=== PATIENT | female | born 1945 | race African-American/Black ===

== ENCOUNTER 2016-09-04 18:07 | Emergency (ER) | payer OTHER ==
--- NOTE | 2016-09-04 18:17 | PDOC ---
Rapid Medical Evaluation Medical Evaluation: Allergies Allergy/AdvReac Type Severity Reaction Status Date / Time No Known Allergies Allergy Verified 05/09/16 06:09 09/04/16 18:13 71 yo F c/o left sided neck/left shoulder and leg pain. Pt unsure Similar symptoms x1 week ago but subsidedafter tylenol and arthiritidc rubbing cream. This morning woke up with left sided neck and shoulder pain. "not on the arm" Pt also c/o "pain to my entire leg" LEFT Took tylenol this am without relief. Ordered: EKG Facial symmetric Sensation intact to B/L facial/arms/legs Strength B/L UE/LE 5+/5
[2016-09-04 18:18] VITALS: BP 157/86; PULSE 60; TEMP 98; BMI 33.6
[2016-09-04] MEDS ORDERED: KETOROLAC TROMETHAMINE 60 MG/2 ML VIAL IM ONE (19:30)
[2016-09-04] MEDS ORDERED: KETOROLAC TROMETHAMINE 60 MG/2 ML VIAL ONE (19:48)
--- NOTE | 2016-09-04 19:50 | PDOC ---
History of Present Illness <Jonas Lewis - Last Filed: 09/05/16 01:37> - General History Source: Patient Exam Limitations: No Limitations - History of Present Illness Initial Comments: 09/04/16 19:51 The patient is a 71 year old female with significant past medical history of hypertension, hyperlipidemia, and acid reflux who presents to the ED with worsening pain to the left-sided neck radiating to the left shoulder and down the left arm with left leg pain after waking up this morning. Patient reports experiencing similar symptoms 1 week ago that resolved after taking Tylenol and applying arthritic rubbing cream. However, she developed the pain again after waking up this morning. Her pain is worsen with movement. She states taking Tylenol today with no improvement. Patient denies lightheadedness, diaphoresis, SOB, chest pain, leg swelling, or numbness/tingling. The patient denies fever, chills, and cough. The patient denies abdominal pain, nausea, vomiting, and diarrhea. Allergies: NKDA Social History: No alcohol, tobacco, or drug use reported. Past Surgical History: None reported PCP: Dr. Dk Cage <Susana Palacio - Last Filed: 09/05/16 01:45> - General Chief Complaint: Pain Stated Complaint: NECK PAIN/ARM PAIN Time Seen by Provider: 09/04/16 18:13 Past History - Past Medical History Anemia: No Asthma: No Cancer: No Cardiac Disorders: Yes CVA: No COPD: No CHF: No Dementia: No Diabetes: No GI Disorders: Yes Disorders: No HTN: Yes Hypercholesterolemia: Yes Liver Disease: No Suicide Attempt (Hx): No Seizures: Yes Thyroid Disease: Yes - Surgical History Abdominal Surgery: No Appendectomy: No Cardiac Surgery: No Cholecystectomy: No Lung Surgery: No Neurologic Surgery: No Orthopedic Surgery: No - Immunization History Immunization Up to Date: Yes - Psycho/Social/Smoking Cessation Hx Anxiety: No Suicidal Ideation: No Smoking Status: No Smoking History: Never smoked Have you smoked in the past 12 months: No Number of Cigarettes Smoked Daily: 0 Information on smoking cessation initiated: No Hx Alcohol Use: No Drug/Substance Use Hx: No Substance Use Type: None <Jonas Lewis - Last Filed: 09/05/16 01:37> <Susana Palacio - Last Filed: 09/05/16 01:45> - Past Medical History Allergies/Adverse Reactions: Allergies Allergy/AdvReac Type Severity Reaction Status Date / Time No Known Allergies Allergy Verified 09/04/16 18:13 Home Medications: Ambulatory Orders Aspirin [ASA -] 81 mg PO DAILY 02/08/12 Hydrochlorothiazide 25 mg PO DAILY 02/08/12 Multivit with Calcium,Iron,Min [One Daily Women's] 1 each PO DAILY 02/08/12 Omega3/Dha/Epa/Fish Oil/Vit D3 [Xllln-4-Pdns Oil-Vit D3 Sftgl] 1 each PO DAILY 02/08/12 Lovastatin 40 mg PO HS 06/09/13 Ibuprofen [Motrin -] 600 mg PO QID PRN #28 tablet 09/05/16 Review of Systems - Review of Systems Able to Perform ROS?: Yes Comments:: 09/04/16 19:51 CONSTITUTIONAL: Absent: fever, chills, diaphoresis, generalized weakness, malaise, loss of appetite HEENT: Absent: rhinorrhea, nasal congestion, throat pain, throat swelling, difficulty swallowing, mouth swelling, ear pain, eye pain, visual Changes CARDIOVASCULAR: Absent: chest pain, syncope, palpitations, irregular heart rate, lightheadedness , peripheral edema RESPIRATORY: Absent: cough, shortness of breath, dyspnea with exertion, orthopnea, wheezing, stridor, hemoptysis GASTROINTESTINAL: Absent: abdominal pain, abdominal distension, nausea, vomiting, diarrhea, constipation, melena, hematochezia GENITOURINARY: Absent: dysuria, frequency, urgency, hesitancy, hematuria, flank pain, genital pain MUSCULOSKELETAL: +left-sided neck pain radiating to left shoulder and down the left arm. Left leg pain Absent: joint swelling SKIN: Absent: rash, itching, pallor NEUROLOGIC: Absent: headache, focal weakness or paresthesias, dizziness, unsteady gait, seizure, mental status changes, bladder or bowel incontinence <Susana Palacio - Last Filed: 09/05/16 01:45> *Physical Exam - Vital Signs Last Vital Signs Temp Pulse Resp BP Pulse Ox 98.0 F 60 18 157/86 100 09/04/16 18:15 09/04/16 18:15 09/04/16 18:15 09/04/16 18:15 09/04/16 18:15 <Jonas Lewis - Last Filed: 09/05/16 01:37> - Vital Signs Last Vital Signs Temp Pulse Resp BP Pulse Ox 98.0 F 60 18 157/86 100 09/04/16 18:15 09/04/16 18:15 09/04/16 18:15 09/04/16 18:15 09/04/16 18:15 - Physical Exam Comments: 09/04/16 19:51 GENERAL: Well developed, well nourished. Awake and alert. No acute distress. HEENT: Normocephalic, atraumatic. PERRLA, EOMI. No conjunctival pallor. Sclera are non- icteric. Moist mucous membranes. Oropharynx is clear. NECK: Supple. Full ROM. No JVD. Carotid pulses 2+ and symmetric, without bruits. No thyromegaly. No lymphadenopathy. CARDIOVASCULAR: Regular rate and rhythm. No murmurs, rubs, or gallops. Distal pulses are 2+ and symmetric. PULMONARY: No evidence of respiratory distress. Lungs clear to auscultation bilaterally. No wheezing, rales or rhonchi. ABDOMINAL: Soft. Non-tender. Non-distended. No rebound or guarding. No organomegaly. Normoactive bowel sounds. MUSCULOSKELETAL Tenderness to the vertebral column along the cervical spine. Tenderness along the left leg, but no calf tenderness. No sign of rotator cuff injury. Good strength of the upper extremities bilaterally with good ROM. Symptoms of radiculopathy along the left upper extremity. No CVA tenderness. EXTREMITIES: No cyanosis. No clubbing. No edema. SKIN: Warm and dry. Normal capillary refill. No rashes. No jaundice. NEUROLOGICAL: Alert, awake, appropriate. Cranial nerves 2-12 intact. No deficits to light touch and temperature in face, upper extremities and lower extremities. No motor deficits in the in face, upper extremities and lower extremities. Normoreflexic in the upper and lower extremities. Normal speech. PSYCHIATRIC: Cooperative. Good eye contact. Appropriate mood and affect. <Susana Palacio - Last Filed: 09/05/16 01:45> Heart Score/ECG Review - ECG Impressions Comment:: 09/05/16 00:26 Sinus bradycardia with occasional premature ventricular complexes @55bpm Left axis deviation Nonspecific T wave abnormality Abnormal ECG <Susana Palacio - Last Filed: 09/05/16 01:45> ED Treatment Course - LABORATORY CBC & Chemistry Diagram: 09/04/16 20:00 09/04/16 21:40 - RADIOLOGY Radiology Studies Ordered: Category Date Time Status CHEST PA & LAT [RAD] Stat Radiology 09/04/16 19:30 Ordered <JoshuaJonas - Last Filed: 09/05/16 01:37> - LABORATORY CBC & Chemistry Diagram: 09/04/16 20:00 09/04/16 21:40 - RADIOLOGY Radiograph Interpretation: 09/05/16 00:23 EXAM: X-ray chest Reviewed by Imaging ux interaction designer: FINDINGS: The cardiomediastinal silhouette is normal. The lungs are clear other than minimal right midlung linear atelectasis. The bones and soft tissues are normal IMPRESSION: No evidence of acute pathology. 09/05/16 01:45 EXAM: CT angiogram chest with contrast and 3-D angiographic reconstructions Reviewed by Imaging ux interaction designer: FINDINGS: No large central pulmonary embolism. Evaluation of the distal segmental branches are limited by artifact. No aortic aneurysm or dissection. Mild calcified arteriosclerosis of the aorta and aortic branches. Calcified coronary arteriosclerosis noted. Basilar atelectasis and scarring. No pleural effusion. No pneumothorax. Small hiatal hernia with mild lower esophageal wall thickening most likely due to reflux esophagitis. Diverticulosis without diverticulitis. Common bile duct measures 1 cm. Mild degenerative disc disease. Mild thoracic kyphosis. Bridging osteophytes in the middle and lower thoracic spine. IMPRESSION No large central pulmonary embolism. Mild calcified arteriosclerosis of the aorta and aortic branches. Calcified coronary arteriosclerosis noted. Small hiatal hernia with mild lower esophageal wall thickening most likely due to reflux esophagitis. Diverticulosis without diverticulitis. Common bile duct measures 1 cm. <Susana Palacio - Last Filed: 09/05/16 01:45> *DC/Admit/Observation/Transfer - Discharge Dispostion Admit: No <Jonas Lewis - Last Filed: 09/05/16 01:37> - Attestations Scribe Attestion: 09/04/16 19:52 Documentation prepared by Susana Palacio, acting as medical economics consultant for Jonas Lewis MD, MD <Susana Palacio - Last Filed: 09/05/16 01:45> Diagnosis at time of Disposition: Cervical radiculopathy, Spinal stenosis of cervical region - Discharge Dispostion Disposition: HOME Condition at time of disposition: Guarded - Prescriptions Prescriptions: Ibuprofen [Motrin -] 600 mg PO QID PRN #28 tablet PRN Reason: Pain - Referrals Referrals: Dk Miller MD [Staff Physician] - Dk Cage MD, MD [Primary Care Provider] -
[2016-09-04 20:18] LABS: BASOPHIL 0.6 % (0-2.0); EOSINOPHIL 1.7 % (0-4.5); MCH 28.4 pg (25.7-33.7); MCHC 33.8 g/dl (32.0-36.0); MEAN PLT VOLUME 9.1 fl (7.5-11.1); NEUTROPHILS 48.2 % (42.8-82.8); PLATELET COUNT 240 K/MM3 (134-434); RDW 16.1 % (11.6-15.6); WHITE BLOOD COUNT 6.4 K/mm3 (4.0-10.0)
[2016-09-04 22:11] LABS: ALK PHOS 66 U/L (45-117); ANION GAP 7 (8-16); BILIRUBIN,TOTAL 0.4 mg/dL (0.2-1.0); CALCIUM 9.2 mg/dL (8.5-10.1); CO2 31 mmol/L (21-32); CREATININE 0.9 mg/dL (0.55-1.02); GLUCOSE,RANDOM 82 mg/dL (74-106); SGOT/AST 29 U/L (15-37); SGPT/ALT 36 U/L (12-78); TOT PROT 7.5 g/dl (6.4-8.2)
[2016-09-05 02:22] LABS: TROPONIN I < 0.02 ng/ml (0.00-0.05)
--- NOTE | 2016-09-05 14:35 | EKG ---
Test Reason : Blood Pressure : / mmHG Vent. Rate : 055 BPM Atrial Rate : 055 BPM P-R Int : 164 ms QRS Dur : 082 ms QT Int : 432 ms P-R-T Axes : 063 -32 -12 degrees QTc Int : 413 ms SINUS BRADYCARDIA WITH OCCASIONAL PREMATURE VENTRICULAR COMPLEXES LEFT AXIS DEVIATION NONSPECIFIC T WAVE ABNORMALITY ABNORMAL ECG WHEN COMPARED WITH ECG OF 09-MAY-2016 02:30, PREMATURE VENTRICULAR COMPLEXES ARE NOW PRESENT Confirmed by BROOKS FLOR, JERAMIE ([id number]) on 09/05/2016 2:34:47 PM Referred By: Confirmed By:JERAMIE GUY MD
== END 2016-09-05 01:52 | disposition home or self-care (01) ==
LOC: JER 18:07
PROC: 3E0233Z Introduction of Anti-inflammatory into Muscle, Percutaneous Approach (ICD-10-PCS; principal; 2016-09-04)
DX: M54.12 Radiculopathy, cervical region (principal); M48.02 Spinal stenosis, cervical region; I10 Essential (primary) hypertension; E78.00 Pure hypercholesterolemia, unspecified; E78.5 Hyperlipidemia, unspecified; K21.9 Gastro-esophageal reflux disease without esophagitis
CPT/HCPCS: 36415; 71020-TC; 71275-TC; 72125-TC; 80053; 82550; 82553; 84484; 85025; 85379; 93005; 93010; 96372; 99281-25

== ENCOUNTER 2016-10-05 20:54 | Emergency (ER) | payer OTHER ==
[2016-10-05 21:15] VITALS: BP 154/88; PULSE 54; TEMP 98.4; BMI 34.3
[2016-10-05] MEDS ORDERED: PANTOPRAZOLE SODIUM 40 MG in SODIUM CHLORIDE 100 ML IVPB ONE (22:36)
[2016-10-05] MEDS ORDERED: PANTOPRAZOLE 40 MG TABLET (FP) PO ONE (22:37)
--- NOTE | 2016-10-05 22:41 | PDOC ---
History of Present Illness - General History Source: Patient <GianniGregory frazier - Last Filed: 10/05/16 22:45> - General History Source: Patient Exam Limitations: No Limitations - History of Present Illness Initial Comments: 10/05/16 22:48 The patient is a 71 year old female with history of hypertension, hyperlipidemia , and pancreatic cyst, who presents to the ED complaining of constant, sharp, epigastric pain, ranked 10/10 in intensity, with associated gassiness that began this evening after eating. She states she experienced this pain once before when she was diagnosed with a pancreatic cyst. She did not take anything for her symptoms today. The patient denies fever or chills. She denies chest pain or shortness of breath. She denies vomiting or diarrhea. <Yissel Stewart - Last Filed: 10/05/16 22:54> - General Chief Complaint: Pain, Acute Stated Complaint: STOMACH PAIN Time Seen by Provider: 10/05/16 22:14 Past History - Past Medical History Anemia: No Asthma: No Cancer: No Cardiac Disorders: Yes CVA: No COPD: No CHF: No Dementia: No Diabetes: No GI Disorders: Yes Disorders: No HTN: Yes Hypercholesterolemia: Yes Liver Disease: No Suicide Attempt (Hx): No Seizures: Yes Thyroid Disease: Yes - Surgical History Abdominal Surgery: No Appendectomy: No Cardiac Surgery: No Cholecystectomy: No Lung Surgery: No Neurologic Surgery: No Orthopedic Surgery: No - Immunization History Immunization Up to Date: Yes - Psycho/Social/Smoking Cessation Hx Anxiety: No Suicidal Ideation: No Smoking Status: No Smoking History: Never smoked Have you smoked in the past 12 months: No Number of Cigarettes Smoked Daily: 0 Information on smoking cessation initiated: No Hx Alcohol Use: No Drug/Substance Use Hx: No Substance Use Type: None <Gregory Mendez - Last Filed: 10/05/16 22:45> <Yissel Stewart - Last Filed: 10/05/16 22:54> - Past Medical History Allergies/Adverse Reactions: Allergies Allergy/AdvReac Type Severity Reaction Status Date / Time No Known Allergies Allergy Verified 10/05/16 21:13 Home Medications: Ambulatory Orders Aspirin [ASA -] 81 mg PO DAILY 02/08/12 Hydrochlorothiazide 25 mg PO DAILY 02/08/12 Multivit with Calcium,Iron,Min [One Daily Women's] 1 each PO DAILY 02/08/12 Omega3/Dha/Epa/Fish Oil/Vit D3 [Umoft-7-Gncj Oil-Vit D3 Sftgl] 1 each PO DAILY 02/08/12 Lovastatin 40 mg PO HS 06/09/13 Oxycodone HCl/Acetaminophen [Percocet 5-325 mg Tablet] 1 - 2 tab PO Q6H #20 tablet MDD 4 10/05/16 Pantoprazole Sodium [Protonix] 40 mg PO DAILY #30 tablet. 10/05/16 Review of Systems - Review of Systems Able to Perform ROS?: Yes Comments:: 10/05/16 22:52 GENERAL/CONSTITUTIONAL: No fever or chills. No weakness. HEAD, EYES, EARS, NOSE AND THROAT: No change in vision. No ear pain or discharge. No sore throat CARDIOVASCULAR: No chest pain or shortness of breath. RESPIRATORY: No cough, wheezing, or hemoptysis. GASTROINTESTINAL: Epigastric pain. No nausea, vomiting, diarrhea or constipation. GENITOURINARY: No dysuria, frequency, or change in urination. MUSCULOSKELETAL: No joint or muscle swelling or pain. No neck or back pain. SKIN: No rash NEUROLOGIC: No headache, vertigo, loss of consciousness, or change in strength/ sensation. ENDOCRINE: No increased thirst. No abnormal weight change. HEMATOLOGIC/LYMPHATIC: No anemia, easy bleeding, or history of blood clots. ALLERGIC/IMMUNOLOGIC: No hives or skin allergy. <Yissel Stewart - Last Filed: 10/05/16 22:54> *Physical Exam - Vital Signs Last Vital Signs Temp Pulse Resp BP Pulse Ox 98.4 F 54 L 18 154/88 98 10/05/16 21:13 10/05/16 21:13 10/05/16 21:13 10/05/16 21:13 10/05/16 21:13 <Gregory Mendez - Last Filed: 10/05/16 22:45> - Vital Signs Last Vital Signs Temp Pulse Resp BP Pulse Ox 98.4 F 54 L 18 154/88 98 10/05/16 21:13 10/05/16 21:13 10/05/16 21:13 10/05/16 21:13 10/05/16 21:13 - Physical Exam Comments: 10/05/16 22:53 GENERAL: Awake, alert, and fully oriented, in no acute distress HEAD: No signs of trauma EYES: PERRLA, EOMI, sclera anicteric, conjunctiva clear ENT: Auricles normal inspection, hearing grossly normal, nares patent, oropharynx clear without exudates. Moist mucosa NECK: Normal ROM, supple, no lymphadenopathy, JVD, or masses LUNGS: Breath sounds equal, clear to auscultation bilaterally. No wheezes, and no crackles HEART: Regular rate and rhythm, normal S1 and S2, no murmurs, rubs or gallops ABDOMEN: +Mild epigastric tenderness to palpitations. Soft, normoactive bowel sounds. No guarding, no rebound. No masses EXTREMITIES: Normal range of motion, no edema. No clubbing or cyanosis. No cords, erythema, or tenderness NEUROLOGICAL: Cranial nerves II through XII grossly intact. Normal speech, normal gait SKIN: Warm, Dry, normal turgor, no rashes or lesions noted. <Yissel Stewart - Last Filed: 10/05/16 22:54> Medical Decision Making - Medical Decision Making 10/05/16 22:45 Dr. Mendez: The scribe's documentation has been prepared under my direction and personally reviewed by me in its entirery. I confirm that the note above accurately reflects all work, treatment, procedures, and medical decision making performed by me. <Gregory Mendez - Last Filed: 10/05/16 22:45> *DC/Admit/Observation/Transfer - Discharge Dispostion Admit: No <Gregory Mendez - Last Filed: 10/05/16 22:45> - Attestations Scribe Attestion: 10/05/16 22:53 Documentation prepared by Yissel Stewart, acting as medical coding auditor for Gregory Mendez DO. <iYssel Stewart - Last Filed: 10/05/16 22:54> Diagnosis at time of Disposition: Abdominal pain Qualifiers: Abdominal location: epigastric Qualified Code(s): R10.13 - Epigastric pain - Discharge Dispostion Disposition: HOME Condition at time of disposition: Stable - Prescriptions Prescriptions: Oxycodone HCl/Acetaminophen [Percocet 5-325 mg Tablet] 1 - 2 tab PO Q6H #20 tablet MDD 4 Pantoprazole Sodium [Protonix] 40 mg PO DAILY #30 tablet.dr - Referrals Referrals: Dk Cage MD, MD [Primary Care Provider] - Eriberto Cervantes MD [Staff Physician] - - Patient Instructions Printed Discharge Instructions: DI for Abdominal Pain-Adult Additional Instructions: Please follow up with your GI specialist as soon as possible. Take medication as directed
[2016-10-05] MEDS ORDERED: PANTOPRAZOLE 40 MG TABLET (FP) ONE (22:43)
[2016-10-05] MEDS ORDERED: OXYCODONE/APAP 5/325MG COMBO TABLET PO ONE (22:44)
[2016-10-05] MEDS ORDERED: OXYCODONE/APAP 5/325MG COMBO TABLET ONE (22:46)
== END 2016-10-05 22:56 | disposition home or self-care (01) ==
LOC: JER 20:54
DX: R10.13 Epigastric pain (principal); I51.9 Heart disease, unspecified; I10 Essential (primary) hypertension; E07.9 Disorder of thyroid, unspecified; Z79.82 Long term (current) use of aspirin
CPT/HCPCS: 99282-25

== ENCOUNTER 2016-12-11 23:10 | Observation (INO) | payer OTHER ==
[2016-12-11 23:15] VITALS: BMI 34.3
[2016-12-11] MEDS ORDERED: ASPIRIN 81 MG CHEWABLE TABLETS PO ONE (23:45)
--- NOTE | 2016-12-11 23:45 | PDOC ---
History of Present Illness <Antonia Marc - Last Filed: 12/12/16 01:26> <DkClaudine Lagos - Last Filed: 12/13/16 01:48> - General Chief Complaint: Lightheaded Stated Complaint: ALLERGIC REACTION Time Seen by Provider: 12/11/16 23:29 - History of Present Illness Initial Comments: 12/12/16 01:26 Patient is a 71 year old female with significant medical hx of HTN, HLD, acid reflux, and pancreatic cyst who is presenting to the ED with several complaints including chest pain, vertigo, and lip tingling. Yesterday the patient had some faint tingling of her mandibular lip which usually occurs after eating peanuts, which she had in a brownie yesterday. Denies any dyspnea, angioedema, or rash. The patient also complains of substernal chest discomfort that began this afternoon after eating lunch. Her pain is constant, non-radiating, and not affiliated with any shortness of breath. The patient has a tertiary complaint of vertigo that began this evening, which she states shes had in the past. She describes her dizziness as if the room is spinning but denies any headache, photophobia, weakness, or syncope. Denies any fever, chills, nausea, vomiting, or diarrhea. Allergies: Peanuts. NKDA Social History: No alcohol, tobacco, or drug use reported. Past Surgical History: None reported PCP: Dk Cage MD (Antonia Marc) Past History <Antonia Marc - Last Filed: 12/12/16 01:26> - Past Medical History Anemia: No Asthma: No Cancer: No Cardiac Disorders: Yes CVA: No COPD: No CHF: No Dementia: No Diabetes: No GI Disorders: Yes Disorders: No HTN: Yes Hypercholesterolemia: Yes Liver Disease: No Suicide Attempt (Hx): No Seizures: Yes Thyroid Disease: Yes - Surgical History Abdominal Surgery: No Appendectomy: No Cardiac Surgery: No Cholecystectomy: No Lung Surgery: No Neurologic Surgery: No Orthopedic Surgery: No - Immunization History Immunization Up to Date: Yes - Psycho/Social/Smoking Cessation Hx Anxiety: No Suicidal Ideation: No Smoking Status: No Smoking History: Never smoked Have you smoked in the past 12 months: No Number of Cigarettes Smoked Daily: 0 Hx Alcohol Use: No Drug/Substance Use Hx: No Substance Use Type: None <Claudine Root - Last Filed: 12/13/16 01:48> - Past Medical History Allergies/Adverse Reactions: Allergies Allergy/AdvReac Type Severity Reaction Status Date / Time peanut Allergy Verified 12/11/16 23:13 Home Medications: Ambulatory Orders Aspirin [ASA -] 81 mg PO DAILY 02/08/12 Hydrochlorothiazide 25 mg PO DAILY 02/08/12 Multivit with Calcium,Iron,Min [One Daily Women's] 1 each PO DAILY 02/08/12 Omega3/Dha/Epa/Fish Oil/Vit D3 [Dmemw-9-Ohom Oil-Vit D3 Sftgl] 1 each PO DAILY 02/08/12 Lovastatin 40 mg PO HS 06/09/13 Cardiac Specific PMH - Complaint Specific PMHX Pacemaker: No <Jesús Rootmarissa Lagos - Last Filed: 12/13/16 01:48> Review of Systems <Antonia Marc - Last Filed: 12/12/16 01:26> <DkClaudine Yolis - Last Filed: 12/13/16 01:48> - Review of Systems Comments:: 12/12/16 01:26 CONSTITUTIONAL: Absent: fever, chills, diaphoresis, generalized weakness, malaise, loss of appetite HEENT: Absent: rhinorrhea, nasal congestion, throat pain, throat swelling, difficulty swallowing, mouth swelling, ear pain, eye pain, visual changes CARDIOVASCULAR: Present: chest pain Absent: syncope, palpitations, irregular heart rate, lightheadedness, peripheral edema RESPIRATORY: Absent: cough, shortness of breath, dyspnea with exertion, orthopnea, wheezing, stridor, hemoptysis GASTROINTESTINAL: Absent: abdominal pain, abdominal distension, nausea, vomiting, diarrhea, constipation, melena, hematochezia GENITOURINARY: Absent: dysuria, frequency, urgency, hesitancy, hematuria, flank pain, genital pain MUSCULOSKELETAL: Absent: myalgia, arthralgia, joint swelling SKIN: Absent: rash, itching, pallor HEMATOLOGIC/IMMUNOLOGIC: Absent: easy bleeding, easy bruising, lymphadenopathy, frequent infections ENDOCRINE: Absent: unexplained weight gain, unexplained weight loss, heat intolerance, cold intolerance NEUROLOGIC: Present: dizziness, lip tingling Absent: headache, focal weakness, unsteady gait, seizure, mental status changes , bladder or bowel incontinence. PSYCHIATRIC: Absent: anxiety, depression, suicidal or homicidal ideation, hallucinations (Antonia Marc) *Physical Exam <Antonia Marc - Last Filed: 12/12/16 01:26> <DkClaudine Yolis - Last Filed: 12/13/16 01:48> - Vital Signs Last Vital Signs Temp Pulse Resp BP Pulse Ox 98.0 F 57 L 18 121/66 98 12/12/16 22:00 12/12/16 22:00 12/12/16 22:00 12/12/16 22:00 12/12/16 21:00 - Physical Exam Comments: 12/12/16 01:27 GENERAL: Well developed, well nourished. Awake and alert. No acute distress. HEENT: Normocephalic, atraumatic. PERRLA, EOMI. No conjunctival pallor. Sclera are non- icteric. Moist mucous membranes. Oropharynx is clear. NECK: Supple. Full ROM. No JVD. Carotid pulses 2+ and symmetric, without bruits. No thyromegaly. No lymphadenopathy. CARDIOVASCULAR: Regular rate and rhythm. No murmurs, rubs, or gallops. Distal pulses are 2+ and symmetric. PULMONARY: No evidence of respiratory distress. Lungs clear to auscultation bilaterally. No wheezing, rales or rhonchi. ABDOMINAL: Soft. Non-tender. Non-distended. No rebound or guarding. No organomegaly. Normoactive bowel sounds. MUSCULOSKELETAL: Normal range of motion at all joints. No bony deformities or tenderness. No CVA tenderness. EXTREMITIES: No cyanosis. No clubbing. No edema. No calf tenderness. SKIN: Warm and dry. Normal capillary refill. No rashes. No jaundice. NEUROLOGICAL: Alert, awake, appropriate. Cranial nerves 2-12 intact. Normal speech. PSYCHIATRIC: Cooperative. Good eye contact. Appropriate mood and affect. (Antonia Marc) Heart Score/ECG Review <Antonia Marc - Last Filed: 12/12/16 01:26> - History History: Slightly suspicious - Electrocardiogram EKG: Non specific repolarization disturbance - Age Age: >/= 65 - Risk Factors Risk Factors Heart Score: Yes Hx Hypertension Based on the list above the patient has:: 1-2 risk factors - Troponin Troponin: </= normal limit - Score Heart Score - Total: 4 <Claudine Root - Last Filed: 12/13/16 01:48> #1 12/12/16 01:28 Sinus bradycardia at 53 bpm Left axis deviation Nonspecific T wave abnormality Abnormal ECG (MonicoAntonia) ED Treatment Course - LABORATORY CBC & Chemistry Diagram: 12/12/16 00:20 12/12/16 00:20 <MonicoAlbertAntonia - Last Filed: 12/12/16 01:26> - LABORATORY CBC & Chemistry Diagram: 12/12/16 06:20 12/12/16 06:20 <Claudine Root - Last Filed: 12/13/16 01:48> - ADDITIONAL ORDERS Additional order review: Laboratory Results 12/11/16 09:50 Ur Specific [facility] <= 1.005 12/12/16 00:20 RBC 4.63 MCV 84.2 MCHC 32.9 RDW 15.6 MPV 9.3 Neutrophils % 57.2 Lymphocytes % 30.9 D Monocytes % 10.1 Eosinophils % 1.2 Basophils % 0.6 - RADIOLOGY Radiology Studies Ordered: Category Date Time Status HEAD CT WITHOUT CONTRAST [CT] Stat CT Scan 12/12/16 00:04 Completed CHEST X-RAY PORTABLE* [RAD] Stat Radiology 12/11/16 23:45 Completed Radiograph Interpretation: 12/12/16 01:29 [place]: ([email or web address]) Report Date: 12/12/2016 00:34:00 Report Status: Preliminary Begin of Report Content Referring Physician: Claudine Root Patient Name: Bess Shah THIS IS A PRELIMINARY REPORT FROM IMAGING DIRECTOR BUSINESS DEVELOPMENT DATE OF SERVICE: 2016-12-12 00:34:24.0 IMAGES: 401 EXAM: HEAD CT WITHOUT CONTRAST HISTORY:Altered mental status, headache COMPARISON: 01/21/15 FINDINGS: No evidence of hemorrhage, acute territorial infarction, mass effect , midline shift, hydrocephalus, or extra-axial collections No hyperdense arterial sign Clear paranasal sinuses, mastoid air cells, and middle ear cavities The calvarium and overlying soft tissues are unremarkable In comparison to the prior study, there has been no significant change IMPRESSION: 1. Stable examination. No acute intracranial pathology THIS DOCUMENT HAS BEEN ELECTRONICALLY SIGNED Gregorio Dominguez MD 12/12/2016 01:09 RICHARD Roe Please call Imaging Candy Attendant [phone]) with questions. End of Report Content (Antonia Marc) - Medications Given in the ED: ED Medications Discontinued Medications Generic Name Dose Route Start Last Admin Trade Name Freq PRN Reason Stop Dose Admin Al Hydroxide/Mg Hydroxide 30 ml 12/12/16 12:00 12/12/16 12:23 Mylanta Suspension - PO 30 ml Q6HPO ASH Administration Aspirin 162 mg 12/11/16 23:45 12/12/16 01:19 Asa - PO 12/11/16 23:46 Not Given ONCE ONE Aspirin 81 mg 12/12/16 00:37 12/12/16 00:38 Asa - PO 12/12/16 00:38 81 mg ONCE ONE Administration Hydrochlorothiazide 25 mg 12/12/16 10:00 12/12/16 10:49 Hctz - PO Not Given DAILY ASH Pantoprazole Sodium 100 mls @ 200 mls/hr 12/12/16 10:00 12/12/16 10:47 Protonix 40mg Ivpb (Pre-Docked) IVPB Not Given DAILY ASH Sodium Chloride 1,000 mls @ 75 mls/hr 12/12/16 11:00 12/12/16 12:23 Normal Saline - IV 12/13/16 00:19 75 mls/hr ASDIR ASH Administration Meclizine HCl 50 mg 12/12/16 00:36 12/12/16 01:19 Antivert - PO 12/12/16 00:37 50 mg ONCE ONE Administration Ondansetron HCl 4 mg 12/12/16 03:04 12/12/16 03:18 Zofran Injection IVPUSH 12/12/16 03:05 4 mg ONCE ONE Administration Medical Decision Making <Antonia Marc - Last Filed: 12/12/16 01:26> <Claudine Root - Last Filed: 12/13/16 01:48> - Medical Decision Making 12/12/16 00:33 71-year-old female has complaint of vertigo. She has had in the past. She has no meclizine at home. She also noted that she had some elevated chicken and 3 PM and a brownie. Bottom lip started to feel tingly and numb and she felt that she had been exposed to peanuts She does not have any shortness of breath, no wheezing, no uvular swelling, and no hives, no angioedema Her dizziness is very positional and worsens with if she tries to lay supine. No nausea, vomiting. She does complain of some nonradiating substernal chest pain, has complaint: " Of indigestion that started this evening. Past medical history of hypertension, lipidemia and hypertension Plan patient to receive vertigo, cardiac enzymes, head CT -pt's head CT negative for any acute intracranial pathology/first cardiac enzyme is negative. Will admit for r/o to tele obs 12/13/16 01:46 (Claudine Root) *DC/Admit/Observation/Transfer <Antonia Marc - Last Filed: 12/12/16 01:26> - Discharge Dispostion Admit: Yes <Claudine Root - Last Filed: 12/13/16 01:48> Diagnosis at time of Disposition: Chest pain Qualifiers: Chest pain type: precordial pain Qualified Code(s): R07.2 - Precordial pain - Referrals - Attestations Scribe Attestion: 12/12/16 01:28 Documentation prepared by Antonia Marc, acting as medical chemist for Claudine Root MD. (Antonia Marc)
[2016-12-12] MEDS ORDERED: ASPIRIN 81 MG CHEWABLE TABLETS ONE (00:23)
[2016-12-12 00:28] LABS: BASOPHIL 0.6 % (0-2.0); EOSINOPHIL 1.2 % (0-4.5); MCH 27.7 pg (25.7-33.7); MCHC 32.9 g/dl (32.0-36.0); MEAN CELL VOLUME 84.2 fl (80-96); MEAN PLT VOLUME 9.3 fl (7.5-11.1); NEUTROPHILS 57.2 % (42.8-82.8); PLATELET COUNT 227 K/MM3 (134-434); RDW 15.6 % (11.6-15.6); WHITE BLOOD COUNT 6.8 K/mm3 (4.0-10.0)
[2016-12-12] MEDS ORDERED: MECLIZINE HCL 25 MG TABLET (FP) PO ONE (00:36)
[2016-12-12] MEDS ORDERED: ASPIRIN 81 MG CHEWABLE TABLETS PO ONE (00:37)
[2016-12-12 00:52] LABS: ALBUMIN 3.8 g/dl (3.4-5.0); ANION GAP 9 (8-16); CALCIUM 9.5 mg/dL (8.5-10.1); CO2 31 mmol/L (21-32); COCKROFT - GAULT 74.9615; GLUCOSE,RANDOM 112 mg/dL (74-106); SGPT/ALT 35 U/L (12-78)
[2016-12-12 00:55] LABS: ALK PHOS 62 U/L (45-117); BILIRUBIN,TOTAL 0.5 mg/dL (0.2-1.0); TOT PROT 7.4 g/dl (6.4-8.2); TROPONIN I < 0.02 ng/ml (0.00-0.05)
[2016-12-12 01:01] LABS: SGOT/AST 37 U/L (15-37)
[2016-12-12 01:10] LABS: INR 1.16 (0.82-1.09); PROTHROMBIN TIME (PATIENT) 12.8 SEC (9.98-11.88)
[2016-12-12] MEDS ORDERED: MECLIZINE HCL 25 MG TABLET (FP) ONE (01:10)
--- NOTE | 2016-12-12 02:00 | PN ---
<Orlando Benjaminbeulah - Last Filed: 12/12/16 02:00> Teaching Attending Note Name of Resident: Javy Saavedra ATTENDING PHYSICIAN STATEMENT I saw and evaluated the patient. I reviewed the resident's note and discussed the case with the resident. I agree with the resident's findings and plan as documented. SUBJECTIVE: OBJECTIVE: ASSESSMENT AND PLAN: <Kirk Bronson - Last Filed: 12/12/16 03:07> Teaching Attending Note ATTENDING PHYSICIAN STATEMENT I saw and evaluated the patient. I reviewed the resident's note and discussed the case with the resident. I agree with the resident's findings and plan as documented. SUBJECTIVE: Patient is a 71 year old female with significant medical hx of HTN, HLD, acid reflux, and pancreatic cyst who is presenting to the ED with several complaints including chest pain, vertigo, and lip tingling. Notes she had slight tingling of her lips after having a brownie yesterday in which she suspects contained peanuts dyspnea, angioedema, or rash. Patient also reported chest pain that started this afternoon pain and is constant, nonradiating, and associated with room spinning dizziness OBJECTIVE: Last Vital Signs 3 Temp Pulse Resp BP Pulse Ox 97.7 F 56 L 20 165/81 98 12/11/16 23:13 12/11/16 23:13 12/11/16 23:13 12/11/16 23:13 12/11/16 23:13 Physical Exam: GEN: NAD AOx3 HEENT: NCAT, PERRL CARD: RRR, S1 S2 RESP: CTAB. Able to speak in full sentences ABD: NT, BWS x4 EXT: - CCE Labs: CBCD 3 WBC 6.8 K/mm3 (4.0-10.0) 12/12/16 00:20 RBC 4.63 M/mm3 (3.60-5.2) 12/12/16 00:20 Hgb 12.9 GM/dL (10.7-15.3) 12/12/16 00:20 Hct 39.0 % (32.4-45.2) 12/12/16 00:20 MCV 84.2 fl (80-96) 12/12/16 00:20 MCHC 32.9 g/dl (32.0-36.0) 12/12/16 00:20 RDW 15.6 % (11.6-15.6) 12/12/16 00:20 Plt Count 227 K/MM3 (134-434) 12/12/16 00:20 MPV 9.3 fl (7.5-11.1) 12/12/16 00:20 CMP 3 Sodium 139 mmol/L (136-145) 12/12/16 00:20 Potassium 4.6 mmol/L (3.5-5.1) D 12/12/16 00:20 Chloride 99 mmol/L (98-107) 12/12/16 00:20 Carbon Dioxide 31 mmol/L (21-32) 12/12/16 00:20 Anion Gap 9 (8-16) 12/12/16 00:20 BUN 19 mg/dL (7-18) H D 12/12/16 00:20 Creatinine 1.0 mg/dL (0.55-1.02) 12/12/16 00:20 Creat Clearance w eGFR 54.81 (>60) 12/12/16 00:20 Calcium 9.5 mg/dL (8.5-10.1) 12/12/16 00:20 Total Bilirubin 0.5 mg/dL (0.2-1.0) D 12/12/16 00:20 AST 37 U/L (15-37) D 12/12/16 00:20 ALT 35 U/L (12-78) 12/12/16 00:20 Alkaline Phosphatase 62 U/L (45-117) 12/12/16 00:20 Total Protein 7.4 g/dl (6.4-8.2) 12/12/16 00:20 Albumin 3.8 g/dl (3.4-5.0) 12/12/16 00:20 Imaging: EXAM: CT brain without contrast IMAGES: 55 EXAM DATE AND TIME: 2015-01-21 01: 46:32.0 REASON FOR EXAM: Dizziness rule out bleed COMPARISON: No FINDINGS: Normal brain. No acute intracranial abnormality. No bleed. No acute infarct or mass. THIS DOCUMENT HAS BEEN ELECTRONICALLY SIGNED Kevin Zaldivar MD 01/21/2015 02:02 EST EXAM: ECG Impression: Sinus bradycardia at 53 bpm. Left axis deviation. Nonspecific T wave abnormality. Abnormal ECG. ASSESSMENT AND PLAN: Patient is a 71 year old female with significant medical history of HTN, HLD, acid reflux, and pancreatic cyst who is presenting to the ED with several complaints including chest pain, vertigo, and lip tingling. 1. CP- heart score 4. Post aspirin in ED - Trend trop/ecg - O2 2L NC - Continue with statin - Avoid beta block as patient is bradycardic 2. BPPV - Continue with Methylzine 3. Allergic rxn? - With lip tingling since resolved no angioedema - Benadryl 4. HTN - Continue home medications 5. HLD - Continue with statin - Check lipid panel 6. DVT - low risk - Ambulate Place in observation telemetry Documentation prepared by Kirk Bronson, acting as director of medical review for Dr. Yair Benjamin MD.
[2016-12-12] MEDS ORDERED: ONDANSETRON 4 MG/2 ML VIAL IVPUSH ONE (03:04)
[2016-12-12] MEDS ORDERED: MECLIZINE HCL 25 MG TABLET (FP) PO PRN (03:04)
--- NOTE | 2016-12-12 03:09 | HP ---
CHIEF COMPLAINT: chest pain, lip tingling, dizziness/room spinning PCP: Dr. Dk Cage; GI - Dr. Cervantes HISTORY OF PRESENT ILLNESS: 71 y/o F w/sig PMH of HTN, HLD, TIA x2, borderline DM, gastric ulcer, vertigo, GERD presents to ER with c/o mandibular lip tingling, dizziness/room spinning, and chest pain. Pt states she has a peanut allergy and had a brownie with nuts in it and began feeling her lip tingling last night. This morning she woke up with feeling of room spinning, some throat swelling, and chest pain located under the sternum/LUQ. Chest pain is constant, 10/10 initially (now at 7/10), with no radiation. She took tylenol with no relief of chest pain. The feeling of throat swelling gradually resolved through the day today. She has also been feeling nauseous since last night but has not vomited. She has had symptoms of vertigo in the past, last time being many months ago. She had EGD approximately 1 year ago and was found to have an ulcer and treated for it. She has had regular BMs with no blood in stool, no dysuria, denies LOC, SOB, sick contacts, recent travel, fevers, chills, peripheral swelling. ER course was notable for: (1) Meclizine, ASA (2) Head CT w/o contrast (3) Recent Travel: denies PAST MEDICAL HISTORY: HTN, HLD, TIA x2, borderline DM, gastric ulcer, vertigo, GERD, pancreatic cyst PAST SURGICAL HISTORY: no surgeries in past Social History: Smoking: denies Alcohol: rare Drugs: denies Allergies peanut Allergy (Verified 12/11/16 23:13) -cough, throat swelling HOME MEDICATIONS: Home Medications Medication Instructions Recorded Aspirin [ASA -] 81 mg PO DAILY 02/08/12 Hydrochlorothiazide 25 mg PO DAILY 02/08/12 Multivit with Calcium,Iron,Min 1 each PO DAILY 02/08/12 [One Daily Women's] Omega3/Dha/Epa/Fish Oil/Vit D3 1 each PO DAILY 02/08/12 [Ubpjr-2-Zpil Oil-Vit D3 Sftgl] Lovastatin 40 mg PO HS 06/09/13 Oxycodone HCl/Acetaminophen 1 - 2 tab PO Q6H #20 tablet MDD 4 10/05/16 [Percocet 5-325 mg Tablet] Pantoprazole Sodium [Protonix] 40 mg PO DAILY #30 tablet. 10/05/16 REVIEW OF SYSTEMS CONSTITUTIONAL: Absent: fever, chills, diaphoresis HEENT: +blurry vision from spinning, +throat swelling Absent: difficulty swallowing, mouth swelling, ringing in ears, eye pain CARDIOVASCULAR: +chest pain Absent: syncope, lightheadedness, peripheral edema RESPIRATORY: Absent: cough, shortness of breath GASTROINTESTINAL: +nausea Absent: abdominal pain, abdominal distension, vomiting, diarrhea, constipation, hematochezia GENITOURINARY: Absent: dysuria, hematuria NEUROLOGIC: +dizziness/room spinning, +mandibular lip parasthesia Absent: headache, focal weakness, unsteady gait PSYCHIATRIC: Absent: anxiety, depression, hallucinations. PHYSICAL EXAMINATION Vital Signs - 24 hr 12/11/16 23:13 Temperature 97.7 F Pulse Rate 56 L Respiratory 20 Rate Blood Pressure 165/81 O2 Sat by Pulse 98 Oximetry (%) GENERAL: Awake, alert, and fully oriented, in no acute distress. HEAD: Normal with no signs of trauma. EYES: extraocular movements intact, sclera anicteric, conjunctiva clear. No lid lag. EARS, NOSE, THROAT: Ears normal, nares patent, oropharynx clear without exudates. Moist mucous membranes. No laryngeal swelling. NECK: Normal range of motion, supple LUNGS: Breath sounds equal, clear to auscultation bilaterally. No wheezes, and no crackles. No accessory muscle use. HEART: Bradycardic, normal S1 and S2 without murmur, rub or gallop. ABDOMEN: +mild LUQ tenderness, Soft, not distended, normoactive bowel sounds, no guarding, no rebound, no masses. No hepatomegaly or splenomegaly. MUSCULOSKELETAL: Normal range of motion at all joints. No bony deformities or tenderness. No CVA tenderness. LOWER EXTREMITIES: warm, well-perfused. No calf tenderness. No peripheral edema. NEUROLOGICAL:Normal speech. gait not observed. No focal neurological deficits. Roman-Hallpike unable to be done as pt became extremely nauseous during maneuver. PSYCHIATRIC: Cooperative. Good eye contact. Appropriate mood and affect. SKIN: Warm, dry Laboratory Results - last 24 hr 12/12/16 12/12/16 12/12/16 00:01 00:20 00:20 WBC 6.8 RBC 4.63 Hgb 12.9 Hct 39.0 MCV 84.2 MCHC 32.9 RDW 15.6 Plt Count 227 MPV 9.3 Neutrophils % 57.2 Lymphocytes % 30.9 D Monocytes % 10.1 Eosinophils % 1.2 Basophils % 0.6 INR 1.16 H Sodium Potassium Chloride Carbon Dioxide Anion Gap BUN Creatinine Creat Clearance w eGFR Random Glucose Calcium Total Bilirubin AST ALT Alkaline Phosphatase Creatine Kinase CK-MB (CK-2) Troponin I Total Protein Albumin Blood Type A POSITIVE Antibody Screen 12/12/16 12/12/16 00:20 00:20 WBC RBC Hgb Hct MCV MCHC RDW Plt Count MPV Neutrophils % Lymphocytes % Monocytes % Eosinophils % Basophils % INR Sodium 139 Potassium 4.6 D Chloride 99 Carbon Dioxide 31 Anion Gap 9 BUN 19 H D Creatinine 1.0 Creat Clearance w eGFR 54.81 Random Glucose 112 H D Calcium 9.5 Total Bilirubin 0.5 D AST 37 D ALT 35 Alkaline Phosphatase 62 Creatine Kinase 298 H D CK-MB (CK-2) 1.154 Troponin I < 0.02 Total Protein 7.4 Albumin 3.8 Blood Type A POSITIVE Antibody Screen Negative EK12/12/16 01:28 Sinus bradycardia at 53 bpm Left axis deviation Nonspecific T wave abnormality Abnormal ECG Imaging: Patient Name: Bess Shah THIS IS A PRELIMINARY REPORT FROM IMAGING UNDERCOVER AGENT DATE OF SERVICE: 2016-12-12 00:34:24.0 IMAGES: 401 EXAM: HEAD CT WITHOUT CONTRAST HISTORY:Altered mental status, headache COMPARISON: 01/21/15 FINDINGS: No evidence of hemorrhage, acute territorial infarction, mass effect , midline shift, hydrocephalus, or extra-axial collections No hyperdense arterial sign Clear paranasal sinuses, mastoid air cells, and middle ear cavities The calvarium and overlying soft tissues are unremarkable In comparison to the prior study, there has been no significant change IMPRESSION: 1. Stable examination. No acute intracranial pathology THIS DOCUMENT HAS BEEN ELECTRONICALLY SIGNED Gregorio Dominguez MD 12/12/2016 01:09 EST Active Medications Aspirin (Asa -) 81 mg PO DAILY ASH Atorvastatin Calcium (Lipitor -) 10 mg PO HS ASH Hydrochlorothiazide (Hctz -) 25 mg PO DAILY ASH Pantoprazole Sodium (Protonix 40mg Ivpb (Pre-Docked)) 100 mls @ 200 mls/hr IVPB DAILY ASH Meclizine HCl (Antivert -) 25 mg PO TID PRN PRN Reason: VERTIGO ASSESSMENT/PLAN: 71 y/o F w/sig PMH of HTN, HLD, TIA x2, borderline DM, gastric ulcer, vertigo, GERD presents to ER with c/o mandibular lip tingling, dizziness/room spinning, and chest pain. Admitted under observation for atypical chest pain. -Atypical Chest Pain -EKG shows no ST segment changes -Initial trop negative, trend trops -f/u lipid profile -c/w ASA 81 mg, lovastatin 40 mg qhs -likely GI etiology as pt has had ulcer in the past -HEART score 4 -Vertigo / BPPV -Meclizine 25 mg po TID PRN -Zofran given for nausea -Head CT w/o contrast: No acute intracranial pathology -Mandibular Lip parasthesias -Likely secondary to peanut allergy -Benadryl if necessary / no improvement -Hx of GERD and Peptic Ulcer disease -may be cause of substernal/LUQ pain -protonix 40 mg IV qd -HTN -home meds: HCTZ 25 mg po qd -CAD, hx of TIA -c/w lovastatin 40 mg qhs -Head CT w/o contrast: No acute intracranial pathology -DVT ppx -SCDs -FEN -No fluids -Electrolytes wnl, monitor -Cardiac/Diabetic diet -Dispo -Monitor in obs on tele Visit type - Emergency Visit Emergency Visit: Yes ED Registration Date: 12/12/16 Care time: The patient presented to the Emergency Department on the above date and was hospitalized for further evaluation of their emergent condition. - New Patient This patient is new to me today: Yes Date on this admission: 12/12/16 - Critical Care Critical Care patient: No
[2016-12-12] MEDS ORDERED: ONDANSETRON 4 MG/2 ML VIAL ONE (03:13)
[2016-12-12 06:35] LABS: BASOPHIL 0.5 % (0-2.0); EOSINOPHIL 0.9 % (0-4.5); MCH 27.6 pg (25.7-33.7); MCHC 32.7 g/dl (32.0-36.0); MEAN CELL VOLUME 84.5 fl (80-96); MEAN PLT VOLUME 8.4 fl (7.5-11.1); PLATELET COUNT 210 K/MM3 (134-434); RDW 15.5 % (11.6-15.6); WHITE BLOOD COUNT 6.7 K/mm3 (4.0-10.0)
[2016-12-12 07:05] LABS: ALBUMIN 3.7 g/dl (3.4-5.0); ANION GAP 7 (8-16); BILIRUBIN,TOTAL 0.5 mg/dL (0.2-1.0); CALCIUM 9.5 mg/dL (8.5-10.1); CHOLESTEROL 195 mg/dL (50-200); CO2 31 mmol/L (21-32); COCKROFT - GAULT 83.2915; CREATININE 0.9 mg/dL (0.55-1.02); GLUCOSE,RANDOM 107 mg/dL (74-106); LDL CHOLESTEROL (ONLY SJRH) 116 mg/dL (5-100); SGOT/AST 24 U/L (15-37); SGPT/ALT 33 U/L (12-78); TOT PROT 7.1 g/dl (6.4-8.2)
[2016-12-12 07:07] LABS: ALK PHOS 64 U/L (45-117); TROPONIN I < 0.02 ng/ml (0.00-0.05)
[2016-12-12] MEDS ORDERED: PANTOPRAZOLE SODIUM 100 ML IVPB SCH (10:00)
[2016-12-12] MEDS ORDERED: HYDROCHLOROTHIAZIDE 25 MG TABLET (FP) PO SCH (10:00)
[2016-12-12 10:04] LABS: URINE APPEARANCE CLEAR; URINE BILIRUBIN NEGATIVE (NEGATIVE); URINE BLOOD NEGATIVE (NEGATIVE); URINE COLOR COLORLESS; URINE GLUCOSE (UA) NEGATIVE (NEGATIVE); URINE KETONE NEGATIVE (NEGATIVE); URINE LEUK ESTERASE NEGATIVE (NEGATIVE); URINE NITRITE NEGATIVE (NEGATIVE); URINE PROTEIN NEGATIVE (NEGATIVE); URINE UROBILINOGEN NEGATIVE E.U./dl (0.2-1.0)
[2016-12-12] MEDS ORDERED: PANTOPRAZOLE SODIUM 40 MG VIAL ONE (10:37)
[2016-12-12] MEDS: ASPIRIN 81 MG CHEWABLE TABLETS PO SCH (10:49)
[2016-12-12] MEDS ORDERED: SODIUM CHLORIDE 1,000 ML IV SCH (11:00)
--- NOTE | 2016-12-12 11:02 | EKG ---
Test Reason : Blood Pressure : / mmHG Vent. Rate : 049 BPM Atrial Rate : 049 BPM P-R Int : 172 ms QRS Dur : 084 ms QT Int : 490 ms P-R-T Axes : 060 -39 053 degrees QTc Int : 442 ms SINUS BRADYCARDIA LEFT AXIS DEVIATION T WAVE ABNORMALITY, CONSIDER ANTEROLATERAL ISCHEMIA ABNORMAL ECG WHEN COMPARED WITH ECG OF 11-DEC-2016 23:49, INVERTED T WAVES HAVE REPLACED NONSPECIFIC T WAVE ABNORMALITY IN ANTERIOR LEADS Confirmed by ABDULKADIR FLOR, STUART ([id number]) on 12/12/2016 11:01:54 AM Referred By: FRANCESCO AMARO Confirmed By:STUART PANCHAL MD
--- NOTE | 2016-12-12 11:03 | EKG ---
Test Reason : Blood Pressure : / mmHG Vent. Rate : 053 BPM Atrial Rate : 053 BPM P-R Int : 172 ms QRS Dur : 088 ms QT Int : 474 ms P-R-T Axes : 019 -35 043 degrees QTc Int : 444 ms SINUS BRADYCARDIA LEFT AXIS DEVIATION NONSPECIFIC T WAVE ABNORMALITY ABNORMAL ECG WHEN COMPARED WITH ECG OF 04-SEP-2016 18:27, PREMATURE VENTRICULAR COMPLEXES ARE NO LONGER PRESENT Confirmed by ABDULKADIR FLOR, STUART ([id number]) on 12/12/2016 11:03:03 AM Referred By: Confirmed By:STUART PANCHAL MD
[2016-12-12] MEDS ORDERED: MAG HYDROX/AL HYDROX/SIMETH 355 ML ORAL.SUSP PO SCH (12:00)
--- NOTE | 2016-12-12 12:01 | PN ---
Physical Exam: SUBJECTIVE: Patient seen and examined at bed side this morning. Complained of central chest pain, burning in sensation, non radiating. Patient mentioned that she had similar episode in the past, was diagnosed to have GI ulcers, was given Antacids and PPI's and got better. Since few weeks, hasn't been taking PPIs. Has positional vertigo, better while lying in right lateral position. Associated with nausea but improving. Denies sob, cough, palpitation, abdominal pain, nausea, vomiting, recent cold. Bowel/Bladder habit normal. Sleep/Appetite normal. OBJECTIVE: Vital Signs Period Temp Pulse Resp BP Sys/Muller Pulse Ox Last 24 Hr 98.0 F 54 18 137/68 96-98 GENERAL: Elderly obese female, awake, alert, and fully oriented, in no acute distress. HEAD: Normal with no signs of trauma. EYES: EOM intact, no pallor or icterus, PEERLA, no nystagmus. ENT: Ears normal, moist mucous membranes. NECK: Trachea midline, full range of motion, supple. Chest: Reproducible pain. LUNGS: Breath sounds equal, clear to auscultation bilaterally, no wheezes, no crackles, no accessory muscle use. HEART: Regular rate and rhythm, S1, S2 without murmur, rub or gallop. ABDOMEN: Soft, tenderness on palpation in the epigastric area, nondistended, normoactive bowel sounds, no guarding, no rebound, no hepatosplenomegaly, no masses. EXTREMITIES: 2+ pulses, warm, well-perfused, peripheral edema on the right > left, no calf tenderness, no erythema. NEUROLOGICAL: Bulk/Tone normal, All reflexes intact, no facial droop, Cranial nerves II through XII grossly intact. Normal speech, gait not observed, Roman Halpike maneuver positive. PSYCH: Normal mood, normal affect. SKIN: Warm, dry, normal turgor, no rashes or lesions noted Laboratory Results - last 24 hr 12/12/16 12/12/16 12/12/16 06:20 06:20 06:20 WBC 6.7 RBC 4.67 Hgb 12.9 Hct 39.4 MCV 84.5 MCHC 32.7 RDW 15.5 Plt Count 210 MPV 8.4 Neutrophils % 60.0 Lymphocytes % 28.9 Monocytes % 9.7 Eosinophils % 0.9 Basophils % 0.5 Sodium 139 Potassium 4.1 Chloride 101 Carbon Dioxide 31 Anion Gap 7 L BUN 16 Creatinine 0.9 Creat Clearance w eGFR > 60 Random Glucose 107 H Calcium 9.5 Total Bilirubin 0.5 AST 24 D ALT 33 Alkaline Phosphatase 64 Troponin I < 0.02 Total Protein 7.1 Albumin 3.7 Triglycerides 96 Cholesterol 195 Total LDL Cholesterol 116 H HDL Cholesterol 72 H Active Medications Generic Name Dose Route Start Last Admin Trade Name Freq PRN Reason Stop Dose Admin Al Hydroxide/Mg Hydroxide 30 ml 12/12/16 12:00 Mylanta Suspension - PO Q6HPO ASH Aspirin 81 mg 12/12/16 10:00 12/12/16 10:49 Asa - PO 81 mg DAILY ASH Administration Atorvastatin Calcium 10 mg 12/12/16 22:00 Lipitor - PO HS ASH Hydrochlorothiazide 25 mg 12/12/16 10:00 12/12/16 10:49 Hctz - PO Not Given DAILY ASH Sodium Chloride 1,000 mls @ 75 mls/hr 12/12/16 11:00 Normal Saline - IV 12/13/16 00:19 ASDIR ASH Meclizine HCl 25 mg 12/12/16 14:00 Antivert - PO TID ASH Pantoprazole Sodium 40 mg 12/13/16 10:00 Protonix - PO DAILY ASH ASSESSMENT/PLAN: Patient is a 71 year old female with significant PMH of HTN, HLD, TIA x2, borderline DM, gastric ulcer, vertigo, GERD presents to ER with c/o mandibular lip tingling, dizziness/room spinning, and chest pain. Admitted under observation for atypical chest pain. # Atypical Chest Pain ACS ruled out since EKG has no acute changes, Troponin x 2 is negative Placed on observation in Tele for continuous cardiac monitoring Most likely musculoskeletal as it is reproducible # Vertigo most likely due to BPPV Head CT negative for any acute pathology Roman [place] manuver positive, Normal neuro exam IV NS @ 75mls/hr x 1 bag Continue Meclizine 25 mg po TID ASH Continue Zofran given for nausea If symptoms doesn't resolve, would consider MRI # Epigastric discomfort: likely GI in origin: GERD vs PUD H/o GI ulcers in the past, sees DR. Cervantes, will try to get the reports Continue Protonix 40mg PO BID # Hypertension Hold HCTZ for now and added Amlodipine # CAD, H/O of TIA Continue Aspirin and statin # FEN IV NS @ 75mls/hr x 1 bag Electrolytes to be repeated tomorrow Sodium controlled diet # Prophylaxis For DVT: SCDs, ambulating For GI: On pantoprazole 40mg BID # Code Status: Full Code # Dispo: Placed on observation in Tele. Possible discharge tomorrow. Illness, Investigation and Plan of care explained to the patient. She verbalized understanding. Case seen and discussed with Dr. Zaman. Visit type - Emergency Visit Emergency Visit: Yes ED Registration Date: 12/12/16 Care time: The patient presented to the Emergency Department on the above date and was hospitalized for further evaluation of their emergent condition. - New Patient This patient is new to me today: Yes Date on this admission: 12/12/16 - Critical Care Critical Care patient: No - Discharge Referral Referred to [facility] No
[2016-12-12] MEDS ORDERED: MAG HYDROX/AL HYDROX/SIMETH 30 ML UNIT-DOSE CUP ONE (12:13)
--- NOTE | 2016-12-12 12:43 | MSN ---
Progress Note (short form) - Note Progress Note: Subjective: Patient seen and examined at the bedside this morning. Patient now rates epigastric/chest pain as 6/10 (compared to presentation chest pain rated 9 /10) and describes the pain as burning. Patient stopped ran out of her protonix about 1 month ago and tried eating baking soda which did not alleviate the pain. Patient denies SOB or radiation of pain but does have a cough. Patient is still experiencing vertigo and spinning when she moves her head from the right lying position. Patient complains of nausea but no vomiting. Numbness and tingling of the mandibular lip has resolved and the patient is not having difficultly swallowing. Patient is not experiencing decreased sensation on extremities or face. Objective: Vital Signs Period Temp Pulse Resp BP Sys/Muller Pulse Ox Last 24 Hr 97.7 F-98.0 F 54-56 18-20 137-165/68-81 96-98 General:Female is lying on right side with head elevated; comfortable on exam table in no acute distress. Head: Normocephalic; atraumatic Ears: Ears normal; slightly decreased hearing of conversational tone b/l Eyes: EOMI; no scleral icterus Pharynx: No exudates; no erythema; no uvulal swelling Neck: supple Heart: Bradycardic with normal S1 and S2 Lungs: CTA b/l Chest: Sternal tenderness Abdomen: Soft; tender to deep palpation of LUQ and epigastric region; normoactive bowel sounds Extremities: 2+ pulses; warm; well-perfused; Left posterior leg tender with mild non-pitting edema without redness MSK: 5/5 muscle strength in upper and lower extremities Skin: No rashes or lesions Neurological: CN II-XII grossly intact; No facial droop; No focal deficits; brachioradialis/Achilles reflex 2/4 b/l Skin: No lesions or rashes Psychiatric: appropriate mood and affect Laboratory Results - last 24 hr 12/11/16 12/12/16 12/12/16 09:50 00:01 00:20 WBC 6.8 RBC 4.63 Hgb 12.9 Hct 39.0 MCV 84.2 MCHC 32.9 RDW 15.6 Plt Count 227 MPV 9.3 Neutrophils % 57.2 Lymphocytes % 30.9 D Monocytes % 10.1 Eosinophils % 1.2 Basophils % 0.6 INR Sodium Potassium Chloride Carbon Dioxide Anion Gap BUN Creatinine Creat Clearance w eGFR Random Glucose Calcium Total Bilirubin AST ALT Alkaline Phosphatase Creatine Kinase CK-MB (CK-2) Troponin I Total Protein Albumin Triglycerides Cholesterol Total LDL Cholesterol HDL Cholesterol Urine Color Colorless Urine Appearance Clear Urine pH 6.0 Urine Protein Negative Urine Glucose (UA) Negative Urine Ketones Negative Urine Blood Negative Urine Nitrite Negative Urine Bilirubin Negative Urine Urobilinogen Negative Ur Leukocyte Esterase Negative Blood Type A POSITIVE Antibody Screen 12/12/16 12/12/16 12/12/16 00:20 00:20 00:20 WBC RBC Hgb Hct MCV MCHC RDW Plt Count MPV Neutrophils % Lymphocytes % Monocytes % Eosinophils % Basophils % INR 1.16 H Sodium 139 Potassium 4.6 D Chloride 99 Carbon Dioxide 31 Anion Gap 9 BUN 19 H D Creatinine 1.0 Creat Clearance w eGFR 54.81 Random Glucose 112 H D Calcium 9.5 Total Bilirubin 0.5 D AST 37 D ALT 35 Alkaline Phosphatase 62 Creatine Kinase 298 H D CK-MB (CK-2) 1.154 Troponin I < 0.02 Total Protein 7.4 Albumin 3.8 Triglycerides Cholesterol Total LDL Cholesterol HDL Cholesterol Urine Color Urine Appearance Urine pH Urine Protein Urine Glucose (UA) Urine Ketones Urine Blood Urine Nitrite Urine Bilirubin Urine Urobilinogen Ur Leukocyte Esterase Blood Type A POSITIVE Antibody Screen Negative 12/12/16 12/12/16 12/12/16 06:20 06:20 06:20 WBC 6.7 RBC 4.67 Hgb 12.9 Hct 39.4 MCV 84.5 MCHC 32.7 RDW 15.5 Plt Count 210 MPV 8.4 Neutrophils % 60.0 Lymphocytes % 28.9 Monocytes % 9.7 Eosinophils % 0.9 Basophils % 0.5 INR Sodium 139 Potassium 4.1 Chloride 101 Carbon Dioxide 31 Anion Gap 7 L BUN 16 Creatinine 0.9 Creat Clearance w eGFR > 60 Random Glucose 107 H Calcium 9.5 Total Bilirubin 0.5 AST 24 D ALT 33 Alkaline Phosphatase 64 Creatine Kinase CK-MB (CK-2) Troponin I < 0.02 Total Protein 7.1 Albumin 3.7 Triglycerides 96 Cholesterol 195 Total LDL Cholesterol 116 H HDL Cholesterol 72 H Urine Color Urine Appearance Urine pH Urine Protein Urine Glucose (UA) Urine Ketones Urine Blood Urine Nitrite Urine Bilirubin Urine Urobilinogen Ur Leukocyte Esterase Blood Type Antibody Screen Assessment and Plan: 71 yr old female presents with history of HTN; GERD; TIA (2 several years ago); vertigo; HLD; peptic ulcer; pancreatic cyst; borderline DM presented to ER with chest pain, vertigo, and mandibular lip tingling (which occurred after eating a brownie with nuts-has a nut allergy). 1.) Atypical chest pain * ECG-sinus bradycardia with left axis deviation * Repeated troponins and initial troponins negative * Home medications-ASA 81 mg qd and lovastatin 40mg qhs * Heart score-4 * Likely non-cardiac origin; more likely GI origin; patient has a history of peptic ulcer and GERD * Protonix 40 mg bid; mylanta tid; follow with GI * Check stool for H. pylori antigen 2.) Vertigo * BPPV; dizziness and spinning worsens with change in position * Meclizine 25 mg TID * Head CT without contrast demonstrated no acute intracranial pathology * [place]-Hallpike manuver-patient experienced worsened vertigo 3.) Mandibular lip parasthesias * Resolved 4.) HTN * Hold HCTZ 25 mg qd (home meds) 5.) CAD * History of (2) TIAs * Continue with lovastatin 40 mg qhs * No acute pathology on head CT 6.) DVT prophylaxis * 7.) FEN * Diabetic and cardiac diet 8.) Dispo * If improvement with PPI follow-up after discharge with GI
[2016-12-12] MEDS: MECLIZINE HCL 25 MG TABLET (FP) PO SCH ×2 (14:11→22:03)
--- NOTE | 2016-12-12 14:53 | PN ---
Teaching Attending Note Name of Resident: Keiry Ortega ATTENDING PHYSICIAN STATEMENT I saw and evaluated the patient. I reviewed the resident's note and discussed the case with the resident. I agree with the resident's findings and plan as documented. SUBJECTIVE: No fever or chills, has minimal ABd pain in epigastric area. feels severely dizzy when she moves her head in bed( vertigo) , some nausea with vertigo. n o vomiting. has no dysphagia or SOB . or wheezing . has no CP , has heart burn. OBJECTIVE: NAD , AAOx3 HEENT: MMM. no swelling of lips or uvula . CV: RRR, no MRG, No JVD Lungs : CATB Ext : no edema Abd : soft, ND, TTP in epigastric area , no rebound tenderness or guarding . TTP over L sided chest wall Roman Halpike , positive neuro: no facial droop, round pupils, equal and reactive tolight . tongue and uvula at mid line . strength 5/5 in upper and lwoer ext proxuimally and distally. reflexes exam was limited as not well relaxed: 2+ biceps , 1+ knee jerk, BR, ankle jerk. A/P: 71 y/o lady with h/o PUD , HTN, HLP , TIA , pancreatic head cyst, and other medical problems, who presented with chest/epigastric pain and vertigo. 1- Chest pain: atypical in nature. EKG with no ischemic changes, and trop Nl. big component might be MS in origin as it is reproducible. 2- Epigastric pain: could be gastritis vs PUD vs IBS . last EGD at Dr. sánchez office 1 yr ago per pt . will obtain - Try anti-acids, dc PPI gtt and start po PPI BID ( she ran off 1 month ago ) - check HP stool AG. - lipase is not elevated and abd exam does not suggest pancreatitis 3- Vertigo: likely due to BPV, as [place] hapl[place] is positive and vertigo is positional NL neuro exam makes stroke unlikely - give meclizine TID scheduled - try 1 L of IVF . - if sx does not improve, might need MRI of brain - PT 4- H/o TIA : cont ASA 5- HTN: -hold HCTZ while hydrating. - add norvasc fro BP control for now will observe
[2016-12-12] MEDS: MAG HYDROX/AL HYDROX/SIMETH 30 ML UNIT-DOSE CUP PO SCH (21:55)
[2016-12-12] MEDS ORDERED: ATORVASTATIN CA 10 MG TABLET (FP) PO SCH (22:00)
[2016-12-12] MEDS: PANTOPRAZOLE 40 MG TABLET (FP) PO SCH (22:03)
[2016-12-13] MEDS: MAG HYDROX/AL HYDROX/SIMETH 30 ML UNIT-DOSE CUP PO SCH ×3 (00:22→13:30)
[2016-12-13] MEDS: MECLIZINE HCL 25 MG TABLET (FP) PO SCH ×2 (05:46→13:30)
[2016-12-13 07:30] LABS: ALBUMIN 3.5 g/dl (3.4-5.0); BILIRUBIN,TOTAL 0.5 mg/dL (0.2-1.0); CALCIUM 8.8 mg/dL (8.5-10.1); COCKROFT - GAULT 68.153; CREATININE 1.1 mg/dL (0.55-1.02)
[2016-12-13 07:31] LABS: MCH 27.8 pg (25.7-33.7); MCHC 32.7 g/dl (32.0-36.0); MEAN CELL VOLUME 84.9 fl (80-96); MEAN PLT VOLUME 8.6 fl (7.5-11.1); PLATELET COUNT 193 K/MM3 (134-434); RDW 15.7 % (11.6-15.6); TOT PROT 6.9 g/dl (6.4-8.2); WHITE BLOOD COUNT 6.3 K/mm3 (4.0-10.0)
--- NOTE | 2016-12-13 07:47 | PN ---
Physical Exam: SUBJECTIVE: Patient seen and examined OBJECTIVE: Vital Signs Period Temp Pulse Resp BP Sys/Muller Pulse Ox Last 24 Hr 97.3 F-98.0 F 50-58 18-20 108-130/50-78 98-98 GENERAL: The patient is awake, alert, and fully oriented, in no acute distress. HEAD: Normal with no signs of trauma. EYES: PERRL, extraocular movements intact, sclera anicteric, conjunctiva clear. No ptosis. ENT: Ears normal, nares patent, oropharynx clear without exudates, moist mucous membranes. NECK: Trachea midline, full range of motion, supple. LUNGS: Breath sounds equal, clear to auscultation bilaterally, no wheezes, no crackles, no accessory muscle use. HEART: Regular rate and rhythm, S1, S2 without murmur, rub or gallop. ABDOMEN: Soft, nontender, nondistended, normoactive bowel sounds, no guarding, no rebound, no hepatosplenomegaly, no masses. EXTREMITIES: 2+ pulses, warm, well-perfused, no edema. NEUROLOGICAL: Cranial nerves II through XII grossly intact. Normal speech, gait not observed. PSYCH: Normal mood, normal affect. SKIN: Warm, dry, normal turgor, no rashes or lesions noted Laboratory Results - last 24 hr 12/13/16 12/13/16 05:35 05:35 WBC 6.3 RBC 4.66 Hgb 13.0 Hct 39.6 MCV 84.9 MCHC 32.7 RDW 15.7 H Plt Count 193 MPV 8.6 Sodium 145 Potassium 4.1 Chloride 108 H Carbon Dioxide 32 Anion Gap 5 L BUN 17 Creatinine 1.1 H D Creat Clearance w eGFR 49.10 Random Glucose 95 Calcium 8.8 Total Bilirubin 0.5 AST 23 ALT 31 Alkaline Phosphatase 58 Total Protein 6.9 Albumin 3.5 Active Medications Generic Name Dose Route Start Last Admin Trade Name Freq PRN Reason Stop Dose Admin Al Hydroxide/Mg Hydroxide 30 ml 12/12/16 18:45 12/13/16 05:46 Mylanta Oral Suspension - PO 30 ml Q6HPO ASH Administration Amlodipine Besylate 5 mg 12/13/16 10:00 Norvasc - PO DAILY ASH Aspirin 81 mg 12/12/16 10:00 12/12/16 10:49 Asa - PO 81 mg DAILY ASH Administration Atorvastatin Calcium 10 mg 12/12/16 22:00 12/12/16 22:03 Lipitor - PO 10 mg HS ASH Administration Meclizine HCl 25 mg 12/12/16 14:00 12/13/16 05:46 Antivert - PO 25 mg TID ASH Administration Pantoprazole Sodium 40 mg 12/12/16 22:00 12/12/16 22:03 Protonix - PO 40 mg BID ASH Administration ASSESSMENT/PLAN:
[2016-12-13] MEDS ORDERED: amLODIPine BESYLATE 5 MG TABLET (FP) PO SCH (10:00)
[2016-12-13] MEDS ORDERED: PANTOPRAZOLE 40 MG TABLET (FP) PO SCH (10:00)
[2016-12-13] MEDS: ASPIRIN 81 MG CHEWABLE TABLETS PO SCH (10:23)
[2016-12-13] MEDS: PANTOPRAZOLE 40 MG TABLET (FP) PO SCH (10:23)
--- NOTE | 2016-12-13 14:42 | MSN ---
Progress Note (short form) - Note Progress Note: Subjective: Patient seen and examined at the bedside this morning. Patient is feeling better and is now able to sit-up and walk to the bathroom without vertigo. Patient is still at times experiencing some dizziness but is now able to move out of the right lateral position without vertigo. Epigastric pain has significantly decreased. Patient admits to a slight cough but denies SOB or palpitations. Objective: Vital Signs Period Temp Pulse Resp BP Sys/Muller Pulse Ox Last 24 Hr 97.3 F-98.0 F 54-66 18-20 108-129/50-78 96-98 General: Female sitting up in bed; alert and oriented x3 Eyes: EOMI; no icterus; clear conjunctiva Mouth: No exudates or erythema Abdomen: Soft; normoactive bowel sounds in all quadrants; mild tenderness to deep palpation in LLQ Lungs: CTA b/l no wheezes, rales, or rhonchi Heart: [place] rhythm; normal S1 and S2; bradycardic MSK: 5/5 muscle strength in upper and lower extremity Extremities: No calf tenderness; warm; well-perfused Neurological: CN II-XII grossly intact; normal speech; no facial droop Skin: no lesions or rashes Laboratory Results - last 24 hr 12/11/16 12/13/16 12/13/16 09:50 05:35 05:35 WBC 6.3 RBC 4.66 Hgb 13.0 Hct 39.6 MCV 84.9 MCHC 32.7 RDW 15.7 H Plt Count 193 MPV 8.6 Sodium 145 Potassium 4.1 Chloride 108 H Carbon Dioxide 32 Anion Gap 5 L BUN 17 Creatinine 1.1 H D Creat Clearance w eGFR 49.10 Random Glucose 95 Calcium 8.8 Total Bilirubin 0.5 AST 23 ALT 31 Alkaline Phosphatase 58 Total Protein 6.9 Albumin 3.5 Ur Specific [place] <= 1.005 Assessment and Plan: 71 yr. old female with a history of HTN; TIA x 2; gastric ulcer; pancreatic cyst ; vertigo; GERD; HLD presented to the ER with vertigo, mandibular lip tingling, and chest pain and was admitted. 1.) Atypical chest pain * EKG demonstrates no acute changes and troponin (initial and repeat) is negative- ruled out ACS * Review Echo * Pain is burning in quality and may be GI-related 2.) Vertigo * Likely due to BPPV * Head CT is negative for acute pathology * [place] Halpike test was positive; normal neuro exam; unlikely TIA * Continue meclizine 25 mg TID PRN 3.) Epigastric pain * Pt has history of gastric ulcer * Continue protonix 40mg BID * Follow-up with Dr. Cervantes * Consider H. pylori stool antigen 4.) HTN * Hold HCTZ; amlodipine 5 mg was added 5.) Mandible lip tingling * Resolved; patient states tingling began with ingesting peanuts (patient has a peanut allergy) * Patient to receive epi-pen; benadryl; and prednisone if needed for future peanut contact 6.) CAD * Continue Aspirin 81 mg and lovastatin 40 mg qhs 7.) Prophylaxis * For DVT; compression stockings, ambulating * For GI; Prontonix 40 mg BID 8.) Dispo * Living independently at home with family support
--- NOTE | 2016-12-13 16:10 | DS ---
Physical Exam: SUBJECTIVE: Patient seen and examined at bed side this morning. Says she doesn' t have vertigo anymore, but does have mild dizziness. Denies tingling , numbness, headache, chest pain, sob, cough, palpitation, abdominal pain, nausea or vomiting. Bowel/Bladder habit normal. Sleep/Appetite normal. OBJECTIVE: Vital Signs Period Temp Pulse Resp BP Sys/Muller Pulse Ox Last 24 Hr 97.6 F-98.0 F 54-66 18-20 108-129/50-78 96-98 PHYSICAL EXAM GENERAL: Elderly obese female, awake, alert, and fully oriented, in no acute distress. HEAD: Normal with no signs of trauma. EYES: EOM intact, no pallor or icterus, PEERLA, no nystagmus. ENT: Ears normal, moist mucous membranes. NECK: Trachea midline, full range of motion, supple. Chest: Reproducible pain. LUNGS: Breath sounds equal, clear to auscultation bilaterally, no wheezes, no crackles, no accessory muscle use. HEART: Regular rate and rhythm, S1, S2 without murmur, rub or gallop. ABDOMEN: Soft, tenderness on palpation in the epigastric area, nondistended, normoactive bowel sounds, no guarding, no rebound, no hepatosplenomegaly, no masses. EXTREMITIES: 2+ pulses, warm, well-perfused, peripheral edema on the right > left, no calf tenderness, no erythema. NEUROLOGICAL: Bulk/Tone normal, All reflexes intact, no facial droop, Cranial nerves II through XII grossly intact. Normal speech, gait not observed, Roman Halpike maneuver positive. PSYCH: Normal mood, normal affect. SKIN: Warm, dry, normal turgor, no rashes or lesions noted LABS Laboratory Results - last 24 hr 12/13/16 12/13/16 05:35 05:35 WBC 6.3 RBC 4.66 Hgb 13.0 Hct 39.6 MCV 84.9 MCHC 32.7 RDW 15.7 H Plt Count 193 MPV 8.6 Sodium 145 Potassium 4.1 Chloride 108 H Carbon Dioxide 32 Anion Gap 5 L BUN 17 Creatinine 1.1 H D Creat Clearance w eGFR 49.10 Random Glucose 95 Calcium 8.8 Total Bilirubin 0.5 AST 23 ALT 31 Alkaline Phosphatase 58 Total Protein 6.9 Albumin 3.5 HOSPITAL COURSE: Date of Admission:12/12/16 Date of Discharge: 12/13/16 Patient is a 71 year old female with significant PMH of HTN, HLD, TIA x2, borderline DM, gastric ulcer, vertigo, GERD presents to ER with c/o mandibular lip tingling, dizziness/room spinning, and chest pain. Admitted under observation for atypical chest pain. Atypical Chest Pain: ACS ruled out since EKG has no acute changes, Troponin x 2 is negative. Placed on observation in Tele for continuous cardiac monitoring. No events noted in the monitor. ECHO was done which showed normal left ventricular ejection fraction; regional wall motion abnormalities cannot be excluded due to limited visualization, mild MR, mild-Mod TR; right ventricular systolic pressure is normal. Mod pul valvular regurgitation. Recommended to visit hydroelectric station operator as outpatient for possible stress test. Since the pain was reproducible, chest pain could be musculoskeletal in origin. Vertigo most likely due to BPPV. Head CT was negative for any acute pathology. Roman Halpike manuver was positive, Normal neuro exam. [place] better after a litre of fluids. Ordered Meclizine 25 mg po TID and now vertigo has resolved. Plan was to do an MRI if symptoms persisted. Sent home on 10 tablets of Meclizine for vertigo. Epigastric discomfort: likely GI in origin: GERD vs PUD. H/o GI ulcers in the past, saw Dr. Cervantes as outpatient. Recommended to visit Dr. Cervantes in 2 weeks for possible Endoscopy. Ordered Protonix 40mg PO BID x 7 days. Mandibular tingling: Patient said that she is allergic to peanuts but had a brownie containing peanuts. Started having tingling in the mandibular area. Didn 't have any shortness of breath, difficulty in swallowing or anaphylactic reactions. It resolved while she was in the ER. Educated patient about avoiding peanuts. In case of an Emergency, ordered Epi pen. Hypertension: HCTZ discontinued as it might have attributed to dehydration causing dizziness. Added Amlodipine 5mg PO Daily upon discharge. CAD, H/O of TIA: Continue Aspirin and statin Plan of care explained to the patient. She verbalized understanding. Case discussed with Dr. Rascon. Minutes to complete discharge: 45 Discharge Summary Reason For Visit: CHEST PAIN Current Active Problems Abdominal pain (Acute) Chest pain (Acute) Vertigo (Acute) Hypertension (Chronic) Condition: Improved - Instructions Diet, Activity, Other Instructions: You were admitted for evaluation of chest pain and vertigo. Chest pain was negative for any acute coronary disease. Please follow up with a hydroelectric station operator for a possible stress test. Vertigo could be because of BPPV known as Benign Paroxysmal Positional vertigo. We adjusted your home medication: please stop taking HCTZ and take Amlodipine 5mg PO daily for hypertension. Since you had epigastric pain, have h/o GI ulcers, please f/up with Dr. Cervantes in 2 weeks for possible endoscopy. Do not take any food with peanuts as you have peanuts allergy. We are sending you home with Epi pen to use it in an emergency situation only-if you have allergic reactions due to peanuts like difficulty in breathing, swollen throat sensation. Please follow up with your primary doctor in a week. If your symptoms persists or you develop any new symptom, please visit the ED immediately. Referrals: Eriberto Cervantes MD [Staff Physician] - 2 Weeks Dk Cage MD, MD [Primary Care Provider] - 1 Week Disposition: HOME - Home Medications Comprehensive Discharge Medication List: Ambulatory Orders Aspirin [ASA -] 81 mg PO DAILY 02/08/12 Multivit with Calcium,Iron,Min [One Daily Women's] 1 each PO DAILY 02/08/12 Omega3/Dha/Epa/Fish Oil/Vit D3 [[id number] Oil-Vit D3 Sftgl] 1 each PO DAILY 02/08/12 Lovastatin 40 mg PO HS 06/09/13 Amlodipine Besylate 5 mg PO DAILY #30 tablet 12/13/16 Epinephrine (Epi-Pen 0.3MG) [Epipen 0.3MG -] 0.3 mg IM ASDIR #2 pens 12/13/16 - Discharge Referral [facility]erred to [facility] No
[2016-12-13 17:59] VITALS: BP 114/58; PULSE 54; TEMP 98.5
--- NOTE | 2016-12-13 20:51 | PN ---
Teaching Attending Note Name of Resident: Keiry Ortega ATTENDING PHYSICIAN STATEMENT I saw and evaluated the patient. I reviewed the resident's note and discussed the case with the resident. I agree with the resident's findings and plan as documented. SUBJECTIVE: Patient is doing better with no acute distress. Feeling better. OBJECTIVE: Vital Signs Temperature 98.5 F 12/13/16 17:00 Pulse Rate 54 L 12/13/16 17:00 Respiratory Rate 20 12/13/16 17:00 Blood Pressure 114/58 12/13/16 17:00 O2 Sat by Pulse Oximetry (%) 96 12/13/16 08:52 CBCD WBC 6.3 K/mm3 (4.0-10.0) 12/13/16 05:35 RBC 4.66 M/mm3 (3.60-5.2) 12/13/16 05:35 Hgb 13.0 GM/dL (10.7-15.3) 12/13/16 05:35 Hct 39.6 % (32.4-45.2) 12/13/16 05:35 MCV 84.9 fl (80-96) 12/13/16 05:35 MCHC 32.7 g/dl (32.0-36.0) 12/13/16 05:35 RDW 15.7 % (11.6-15.6) H 12/13/16 05:35 Plt Count 193 K/MM3 (134-434) 12/13/16 05:35 MPV 8.6 fl (7.5-11.1) 12/13/16 05:35 CMP Sodium 145 mmol/L (136-145) 12/13/16 05:35 Potassium 4.1 mmol/L (3.5-5.1) 12/13/16 05:35 Chloride 108 mmol/L (98-107) H 12/13/16 05:35 Carbon Dioxide 32 mmol/L (21-32) 12/13/16 05:35 Anion Gap 5 (8-16) L 12/13/16 05:35 BUN 17 mg/dL (7-18) 12/13/16 05:35 Creatinine 1.1 mg/dL (0.55-1.02) H D 12/13/16 05:35 Creat Clearance w eGFR 49.10 (>60) 12/13/16 05:35 Random Glucose 95 mg/dL (74-106) 12/13/16 05:35 Calcium 8.8 mg/dL (8.5-10.1) 12/13/16 05:35 Total Bilirubin 0.5 mg/dL (0.2-1.0) 12/13/16 05:35 AST 23 U/L (15-37) 12/13/16 05:35 ALT 31 U/L (12-78) 12/13/16 05:35 Alkaline Phosphatase 58 U/L (45-117) 12/13/16 05:35 Total Protein 6.9 g/dl (6.4-8.2) 12/13/16 05:35 Albumin 3.5 g/dl (3.4-5.0) 12/13/16 05:35 CARDIAC ENZYMES Creatine Kinase 298 IU/L (26-192) H D 12/12/16 00:20 Troponin I < 0.02 ng/ml (0.00-0.05) 12/12/16 06:20 Home Medications Medication Instructions Recorded Aspirin [ASA -] 81 mg PO DAILY 02/08/12 Multivit with Calcium,Iron,Min 1 each PO DAILY 02/08/12 [One Daily Women's] Omega3/Dha/Epa/Fish Oil/Vit D3 1 each PO DAILY 02/08/12 [Dohjl-3-Ceoa Oil-Vit D3 Sftgl] Lovastatin 40 mg PO HS 06/09/13 Amlodipine Besylate 5 mg PO DAILY #30 tablet 12/13/16 Epinephrine (Epi-Pen 0.3MG) 0.3 mg IM ASDIR #2 pens 12/13/16 [Epipen 0.3MG -] Meclizine HCl 25 mg PO TID PRN #10 tab.chew 12/13/16 Pantoprazole Sodium 40 mg PO BID #14 tablet. 12/13/16 ASSESSMENT AND PLAN: 71 y/o lady with h/o PUD , HTN, HLP , TIA , pancreatic head cyst, and other medical problems, who presented with chest/epigastric pain and vertigo. #Acute Chest pain:VA is rulled out , atypical in nature. EKG with no ischemic changes, and trop Nl. # Epigastric pain started on Protonix will continue for 7 days , follow with GI in 2 weeks with for further work up . # Vertigo: On meclizine continue # H/o TIA : cont ASA # HTN: on norvasc for BP control for now
== END 2016-12-13 18:52 | disposition home or self-care (01) ==
LOC: JER 23:10 → JERBED 12-12 04:01 → J4W 12-12 14:58
PROVIDERS: ADMIT Internal Medicine; ATTEND Internal Medicine
PROC: 3E033GC Introduction of Other Therapeutic Substance into Peripheral Vein, Percutaneous Approach (ICD-10-PCS; principal; 2016-12-12)
PROC: 3E0337Z Introduction of Electrolytic and Water Balance Substance into Peripheral Vein, Percutaneous Approach (ICD-10-PCS; 2016-12-12)
DX: R07.89 Other chest pain (principal); R42 Dizziness and giddiness; R07.2 Precordial pain; I10 Essential (primary) hypertension; I25.10 Atherosclerotic heart disease of native coronary artery without angina pectoris; E78.5 Hyperlipidemia, unspecified; K21.9 Gastro-esophageal reflux disease without esophagitis; Z91.010 Allergy to peanuts; Z79.82 Long term (current) use of aspirin; R73.03 Prediabetes; Z86.73 Personal history of transient ischemic attack (TIA), and cerebral infarction without residual deficits; R10.13 Epigastric pain
CPT/HCPCS: 36415; 70450-TC; 71010-TC; 80053; 80061; 81003; 82550; 82553; 83721; 84484; 85025; 85027; 85610; 86850; 86900; 86901; 87086; 93005; 93010; 93306-TC; 99285-25; G0378

== ENCOUNTER 2017-12-06 09:54 | Emergency (ER) | payer OTHER ==
[2017-12-06 10:07] VITALS: BP 132/71; PULSE 69; TEMP 98.6; BMI 35.2
--- NOTE | 2017-12-06 10:57 | PDOC ---
History of Present Illness - General Chief Complaint: Injury Stated Complaint: RT FOOT PAIN Time Seen by Provider: 12/06/17 10:56 Past History - Past Medical History Allergies/Adverse Reactions: Allergies Allergy/AdvReac Type Severity Reaction Status Date / Time peanut Allergy Verified 12/06/17 09:59 lactose AdvReac Verified 12/06/17 09:59 Home Medications: Ambulatory Orders Aspirin [ASA -] 81 mg PO DAILY 02/08/12 Multivit with Calcium,Iron,Min [One Daily Women's] 1 each PO DAILY 02/08/12 Omega3/Dha/Epa/Fish Oil/Vit D3 [Snrct-3-Eyak Oil-Vit D3 Sftgl] 1 each PO DAILY 02/08/12 Lovastatin 40 mg PO HS 06/09/13 Amlodipine Besylate 5 mg PO DAILY #30 tablet 12/13/16 EPINEPHrine (EPI-PEN 0.3MG) [Epipen 0.3MG -] 0.3 mg IM ASDIR #2 pens 12/13/16 Meclizine HCl 25 mg PO TID PRN #10 tab.chew 12/13/16 Pantoprazole Sodium 40 mg PO BID #14 tablet. 12/13/16 Anemia: No Asthma: No Cancer: No Cardiac Disorders: Yes CVA: No COPD: No CHF: No DVT: No Dementia: No Diabetes: No GI Disorders: Yes Disorders: No HTN: Yes Hypercholesterolemia: Yes Liver Disease: No Seizures: Yes Thyroid Disease: Yes - Surgical History Abdominal Surgery: No Appendectomy: No Cardiac Surgery: No Cholecystectomy: No Lung Surgery: No Neurologic Surgery: No Orthopedic Surgery: No - Immunization History Immunization Up to Date: Yes - Suicide/Smoking/Psychosocial Hx Smoking Status: No Smoking History: Never smoked Have you smoked in the past 12 months: No Number of Cigarettes Smoked Daily: 0 Information on smoking cessation initiated: No Hx Alcohol Use: No Drug/Substance Use Hx: No Substance Use Type: None *Physical Exam - Vital Signs Last Vital Signs Temp Pulse Resp BP Pulse Ox 98.6 F 69 18 132/71 100 12/06/17 10:00 12/06/17 10:00 12/06/17 10:00 12/06/17 10:00 12/06/17 10:00 *DC/Admit/Observation/Transfer Diagnosis at time of Disposition: Toe fracture, right Qualifiers: Encounter type: initial encounter Toe: lesser toe Fracture type: closed Phalanx : middle Fracture alignment: nondisplaced Qualified Code(s): S92.524A - Nondisplaced fracture of middle phalanx of right lesser toe(s), initial encounter for closed fracture - Discharge Dispostion Disposition: HOME Condition at time of disposition: Stable Decision to Admit order: No - Referrals Referrals: Dk Cage MD, MD [Primary Care Provider] - Kevin Marte MD [Staff Physician] - - Patient Instructions Printed Discharge Instructions: DI for Toe Fracture Additional Instructions: You have a break in your R second toe. Please keep the toe taped for the next week. You may change the tape daily. In addition, wear the hard shoe for one week for added support You may take tylenol 650 mg every 6 hours as needed for pain. Do not exceed taking 4,000mg a day Elevate your foot and ice it to help reduce swelling Follow up with ortho in one week if your symptoms are not improving Return to the ED if you have any new or worsening symptoms. - Post Discharge Activity
[2017-12-06] MEDS ORDERED: ACETAMINOPHEN 325 MG TABLET (FP) ONE (11:40)
[2017-12-06] MEDS ORDERED: ACETAMINOPHEN 325 MG TABLET (FP) PO ONE (11:40)
== END 2017-12-06 12:55 | disposition home or self-care (01) ==
LOC: JER 09:54 → JERFT 09:54
DX: S92.524A Nondisplaced fracture of middle phalanx of right lesser toe(s), initial encounter for closed fracture (principal); X58.XXXA Exposure to other specified factors, initial encounter; Y93.89 Activity, other specified; Y92.89 Other specified places as the place of occurrence of the external cause; Y99.8 Other external cause status; I10 Essential (primary) hypertension; E78.00 Pure hypercholesterolemia, unspecified; E07.9 Disorder of thyroid, unspecified
CPT/HCPCS: 73610-TC-RT-FY; 73630-TC-RT-FY; 99281-25

== ENCOUNTER 2017-12-21 03:23 | Emergency (ER) | payer OTHER ==
[2017-12-21 03:43] VITALS: BMI 34.3
--- NOTE | 2017-12-21 03:51 | PDOC ---
Attending Attestation - HPI HPI: 12/21/17 04:16 Patient is a 72 year old female with a significant past medical history of HTN, HLD, TIAx2, borderline DM, gastric ulcer, vertigo, GERD, who presents to the ED with complaints of abdominal pain that began just prior to ED arrival. Patient reports experiencing sudden diffuse abdominal pain that she states is a 10/10 non radiating pain. She reports her last bowel movement was this morning at 1 am. Patient reports experiencing associated symptoms of slight nausea but denies any vomiting. She reports getting an endoscopy done on Sunday at [facility] and states results showed pancreatic cyc with no obstruction. Denies chest pain, sob. Denies fever, chills. Denies contact with sick individuals, out of state travelling. Denies change in diet, change in appetite. Denies diarrhea, constipation, dysuria, hematuria. Denies any other symptoms. Allergies: Peanuts, Lactose Social history: No smoking. No alcohol. No illicit drugs. Surgical history: None PMD: Dr. Cage Efficiency Clerk: Dr. Cervantes. <Vick Burch - Last Filed: 12/21/17 04:16> - Resident Resident Name: Terence Burks - ED Attending Attestation I have performed the following: I have examined & evaluated the patient, The case was reviewed & discussed with the resident, I agree w/resident's findings & plan, Exceptions are as noted - Physicial Exam PE: 12/24/17 20:02 Physical Exam General Appearance: Yes: Appropriately Dressed. No: Apparent Distress, Intoxicated HEENT: positive: EOMI, KEYUR, Normal ENT Inspection, Normal Voice, TMs Normal, Pharynx Normal. negative: Pale Conjunctivae, Photophobia, Scleral Icterus (R), Scleral Icterus (L) Neck: positive: Trachea midline, Normal Thyroid, Supple. negative: Tender, Rigid, Carotid bruit, Stridor, Lymphadenopathy (R), Lymphadenopathy (L), Thyromegaly Respiratory/Chest: positive: Lungs Clear, Normal Breath Sounds. negative: Chest Tender, Respiratory Distress, Accessory Muscle Use, Labored Respiration, RES, Crackles, Rales, Rhonchi, Stridor, Wheezing, Dullness Cardiovascular: positive: Regular Rhythm, Regular Rate, S1, S2. negative: Edema , JVD, Murmur, Bradycardia, Tachycardia Vascular Pulses: Dorsalis-Pedis (R): 2+, Doralis-Pedis (L): 2+ Gastrointestinal/Abdominal: positive: Normal Bowel Sounds, Flat, Soft. negative : Tender, Organomegaly, Pulsatile Mass, Increased Bowel Sounds, Decreased BS, Distended, Guarding, Rebound, Hernia, Hepatomegaly, Spleenomegaly Lymphatic: negative: Adenopathy, Tenderness Musculoskeletal: positive: Normal Inspection. negative: CVA Tenderness, Decreased Range of Motion Extremity: positive: Normal Capillary Refill, Normal Inspection, Normal Range of Motion, Pelvis Stable. negative: Tender, Pedal Edema, Swelling, Erythema Integumentary: positive: Normal Color, Dry, Warm. 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 negative: EOM Palsy, Facial Droop, Sensory Deficit - Medical Decision Making 12/24/17 20:03 Pt treated and released <Gregory Mendez - Last Filed: 12/24/17 20:03>
--- NOTE | 2017-12-21 03:59 | PDOC ---
History of Present Illness - General Chief Complaint: Pain, Acute Stated Complaint: STOMACH PAIN Time Seen by Provider: 12/21/17 03:28 History Source: Patient - History of Present Illness Initial Comments: 12/21/17 03:54 72 year old female with a hx of HTN, HLD, TIAx2, borderline DM, gastric ulcer, vertigo, GERD presents to the hospital for 2 hour hx of diffuse, non-radiating abdominal pain. She states that the pain is 10/10 in severity. Reports a normal BM around 1am. Denies diarrhea, fevers, chills, nausea or vomiting. States that she had an endoscopy at [facility] on Sunday where they found a non- obstructing pancreatic cyst, but was otherwise normal. She was told to take 5 days of ciprofloxacin post-procedure, and she has taken 2 doses currently. Denies chest pain, SOB. Allergies: peanuts Smoking: none Alcohol: none Drugs: none PCP: Dr. Cage Mastercam Programmer: Dr. Cervantes Past History - Past Medical History Allergies/Adverse Reactions: Allergies Allergy/AdvReac Type Severity Reaction Status Date / Time peanut Allergy Verified 12/06/17 09:59 lactose AdvReac Verified 12/06/17 09:59 Home Medications: Ambulatory Orders Brimonidine Tartrate [Alphagan P] 1 drop OP BID 12/21/17 Ciprofloxacin [Cipro (Restricted To Id)] 250 mg PO BID 12/21/17 Hydrochlorothiazide [Hctz -] 25 mg PO DAILY 12/21/17 Lovastatin 40 mg PO HS 12/21/17 Timolol [Betimol] 1 drop OP BID 12/21/17 Travoprost [Travatan Z] 1 drop OP HS 12/21/17 Anemia: No Asthma: No Cancer: No Cardiac Disorders: Yes CVA: No COPD: No CHF: No DVT: No Dementia: No Diabetes: No GI Disorders: Yes Disorders: No HTN: Yes Hypercholesterolemia: Yes Liver Disease: No Seizures: Yes Thyroid Disease: Yes - Surgical History Abdominal Surgery: No Appendectomy: No Cardiac Surgery: No Cholecystectomy: No Lung Surgery: No Neurologic Surgery: No Orthopedic Surgery: No - Immunization History Immunization Up to Date: Yes - Suicide/Smoking/Psychosocial Hx Smoking Status: No Smoking History: Never smoked Have you smoked in the past 12 months: No Number of Cigarettes Smoked Daily: 0 Hx Alcohol Use: No Drug/Substance Use Hx: No Substance Use Type: None Review of Systems - Review of Systems Constitutional: No: Fever Respiratory: No: Cough, Shortness of Breath, Wheezing Cardiac (ROS): No: Lightheadedness, Chest Tightness ABD/GI: Yes: Abdominal cramping. No: Diarrhea, Nausea, Vomiting : No: Dysuria Musculoskeletal: No: Back Pain Neurological: No: Headache, Numbness *Physical Exam - Vital Signs Last Vital Signs Temp Pulse Resp BP Pulse Ox 98.5 F 57 L 137/61 12/21/17 03:25 12/21/17 03:25 12/21/17 03:25 - Physical Exam Comments: 12/21/17 04:00 GENERAL: A&Ox3, no acute distress EYES: PERRLA, EOMI ENT: Moist mucus membranes NECK: No JVD LUNGS: CTA, no wheezes HEART: RRR, no murmurs ABDOMEN: Soft, BS present, mildly tender to palpation in the LLQ, RLQ and LUQ MUSCULOSKELETAL: No CVA Tenderness EXTREMITIES: 2+ pulses, no edema. NEUROLOGICAL: Cranial nerves II-XII intact. ED Treatment Course - LABORATORY CBC & Chemistry Diagram: 12/21/17 04:00 12/21/17 04:07 Medical Decision Making - Medical Decision Making 12/21/17 04:01 72 year old female with a hx of HTN, HLD, TIA, DM, gastric ulcer, vertigo, GERD presents with 2 hour hx of diffuse abdominal pain -cbc -cmp -UA -EKG -troponin -will evaluate labs and re-evaluate to determine whether patient needs imaging -tylenol for pain 12/21/17 04:15 EKG unchanged from prior labs wnl CT abd/pelvis from night hawk reads: questionable fat haziness versus volume averaging artifact near pancreatic head and proximal duodenum, correlate clinically for acute pancreatitis or duodenitis -will order lipase/lactate -clinically, patient appears to be doing well 12/21/17 06:37 -lipase normal -patient is sleeping comfortably and does not appear to be in any acute distress *DC/Admit/Observation/Transfer Diagnosis at time of Disposition: Abdominal pain - Discharge Dispostion Condition at time of disposition: Stable - Referrals Referrals: Dk Cage MD, [Primary Care Provider] - - Patient Instructions - Post Discharge Activity
[2017-12-21 04:13] LABS: BASO % 0.5 % (0-2.0); EOS % 1.3 % (0-4.5); HEMATOCRIT 38.8 % (32.4-45.2); HEMOGLOBIN 12.9 GM/dL (10.7-15.3); MCH 28.3 pg (25.7-33.7); MCHC 33.3 g/dl (32.0-36.0); MEAN CELL VOLUME 85.1 fl (80-96); MEAN PLT VOLUME 8.7 fl (7.5-11.1); MONO % 9.5 % (3.8-10.2); NEUT % 66.7 % (42.8-82.8); PLATELET COUNT 193 K/MM3 (134-434); RBC 4.55 M/mm3 (3.60-5.2); RDW 15.9 % (11.6-15.6); WHITE BLOOD COUNT 8.3 K/mm3 (4.0-10.0)
[2017-12-21] MEDS ORDERED: ACETAMINOPHEN 325 MG TABLET (FP) PO ONE (04:14)
[2017-12-21] MEDS ORDERED: ACETAMINOPHEN 325 MG TABLET (FP) ONE (04:21)
[2017-12-21 04:37] LABS: ALBUMIN 3.6 g/dl (3.4-5.0); ANION GAP 10 (8-16); BILIRUBIN,TOTAL 0.4 mg/dL (0.2-1.0); BLOOD UREA NITROGEN 16 mg/dL (7-18); CALCIUM 8.9 mg/dL (8.5-10.1); CHLORIDE 103 mmol/L (98-107); CO2 26 mmol/L (21-32); CREATININE 0.9 mg/dL (0.55-1.02); GLUCOSE,RANDOM 115 mg/dL (74-106); SGPT/ALT 34 U/L (12-78); SODIUM 139 mmol/L (136-145); TOT PROT 7.2 g/dl (6.4-8.2)
[2017-12-21 04:40] LABS: ALK PHOS 62 U/L (45-117); POTASSIUM 4.4 mmol/L (3.5-5.1); SGOT/AST 33 U/L (15-37)
--- NOTE | 2017-12-21 07:02 | PDOC ---
*Physical Exam - Vital Signs Last Vital Signs Temp Pulse Resp BP Pulse Ox 98.5 F 62 19 128/76 12/21/17 06:01 12/21/17 06:01 12/21/17 06:01 12/21/17 06:01 ED Treatment Course - LABORATORY CBC & Chemistry Diagram: 12/21/17 04:00 12/21/17 04:07 - ADDITIONAL ORDERS Additional order review: Laboratory Results 12/21/17 12/21/17 04:07 04:07 Sodium 139 Potassium 4.4 Chloride 103 Carbon Dioxide 26 Anion Gap 10 BUN 16 Creatinine 0.9 Creat Clearance w eGFR > 60 Random Glucose 115 H Calcium 8.9 Total Bilirubin 0.4 AST 33 ALT 34 Alkaline Phosphatase 62 Creatine Kinase 209 H Troponin I < 0.02 Total Protein 7.2 Albumin 3.6 Lipase 221 12/21/17 04:00 RBC 4.55 MCV 85.1 MCHC 33.3 RDW 15.9 H MPV 8.7 Neutrophils % 66.7 Lymphocytes % 22.0 D Monocytes % 9.5 Eosinophils % 1.3 Basophils % 0.5 - Medications Given in the ED: ED Medications Discontinued Medications Generic Name Dose Route Start Last Admin Trade Name Freq PRN Reason Stop Dose Admin Acetaminophen 650 mg 12/21/17 04:14 12/21/17 04:24 Tylenol - PO 12/21/17 04:15 650 mg ONCE ONE Administration Medical Decision Making - Medical Decision Making 12/21/17 07:02 Care taken over from Dr. Burks. 12/21/17 08:13 CT scan non-concerning. Patient reporting generalized relief from pain. Discharging to home with instructions to f/u w/ PCP for further evaluation. *DC/Admit/Observation/Transfer Diagnosis at time of Disposition: Abdominal pain Qualifiers: Abdominal location: unspecified location Qualified Code(s): R10.9 - Unspecified abdominal pain - Discharge Dispostion Disposition: HOME Condition at time of disposition: Stable - Referrals Referrals: Dk Cage MD, MD [Primary Care Provider] - - Patient Instructions Printed Discharge Instructions: DI for Abdominal Pain-Adult Additional Instructions: Please follow-up with primary care physician later this week for further evaluation. Return to ER if any increase in pain, fever, chills, nausea, vomiting, or other concerning symptoms. - Post Discharge Activity
[2017-12-21 07:48] VITALS: BP 119/55; PULSE 52; TEMP 97.7
[2017-12-21 07:52] LABS: URINE APPEARANCE CLEAR; URINE BILIRUBIN NEGATIVE (<2.0 mg/dL); URINE BLOOD NEGATIVE (NEGATIVE); URINE COLOR COLORLESS; URINE GLUCOSE (UA) NEGATIVE (NEGATIVE); URINE KETONE NEGATIVE (NEGATIVE); URINE LEUK ESTERASE NEGATIVE (NEGATIVE); URINE NITRITE NEGATIVE (NEGATIVE); URINE PROTEIN NEGATIVE (NEGATIVE); URINE UROBILINOGEN NEGATIVE mg/dL (0.2-1.0)
--- NOTE | 2017-12-21 09:39 | EKG ---
Test Reason : Blood Pressure : / mmHG Vent. Rate : 050 BPM Atrial Rate : 050 BPM P-R Int : 158 ms QRS Dur : 084 ms QT Int : 422 ms P-R-T Axes : 052 -22 086 degrees QTc Int : 384 ms SINUS BRADYCARDIA NONSPECIFIC T WAVE ABNORMALITY ABNORMAL ECG Confirmed by CALEB MARIE MD ([id number]) on 12/21/2017 9:38:44 AM Referred By: Confirmed By:CALEB MARIE MD
== END 2017-12-21 08:59 | disposition home or self-care (01) ==
LOC: JER 03:23
DX: R10.84 Generalized abdominal pain (principal); E78.00 Pure hypercholesterolemia, unspecified; E11.9 Type 2 diabetes mellitus without complications; K21.9 Gastro-esophageal reflux disease without esophagitis; Z87.19 Personal history of other diseases of the digestive system; Z86.73 Personal history of transient ischemic attack (TIA), and cerebral infarction without residual deficits
CPT/HCPCS: 36415; 74176-TC; 80053; 81003; 82550; 82553; 83690; 84484; 85025; 93005; 93010; 99283-25

== ENCOUNTER 2018-08-02 08:48 | Emergency (ER) | payer OTHER ==
[2018-08-02 09:02] VITALS: BP 152/67; PULSE 57; TEMP 98.2; BMI 34.3
--- NOTE | 2018-08-02 09:24 | PDOC ---
History of Present Illness - General Chief Complaint: Pain, Acute Stated Complaint: FALL Time Seen by Provider: 08/02/18 09:11 History Source: Patient Exam Limitations: Clinical Condition - History of Present Illness Initial Comments: 08/02/18 09:20 Patient with no significant past medical history present with complaint of pain to right thumb which is worse when she trying to bend the thumb status post trip and bracing herself with right hand 4 days ago. Patient also reported pain to right upper arm for same period. Patient reported 8 out of 10 pain to right thumb and 3 out of 10 pain to right upper arm. Patient did not fall when he tripped due to bracing herself with right hand. Patient denies any other symptoms Timing/Duration: other (4 days) Past History - Past Medical History Allergies/Adverse Reactions: Allergies Allergy/AdvReac Type Severity Reaction Status Date / Time peanut Allergy Verified 08/02/18 08:55 lactose AdvReac Verified 08/02/18 08:55 Home Medications: Ambulatory Orders Brimonidine Tartrate [Alphagan P] 1 drop OP BID 12/21/17 Ciprofloxacin [Cipro (Restricted To Id)] 250 mg PO BID 12/21/17 Hydrochlorothiazide [Hctz -] 25 mg PO DAILY 12/21/17 Lovastatin 40 mg PO HS 12/21/17 Timolol [Betimol] 1 drop OP BID 12/21/17 Travoprost [Travatan Z] 1 drop OP HS 12/21/17 Naproxen 500 mg PO BID PRN #20 tablet 08/02/18 Anemia: No Asthma: No Cancer: No Cardiac Disorders: Yes CVA: No COPD: No CHF: No DVT: No Dementia: No Diabetes: No GI Disorders: Yes Disorders: No HTN: Yes Hypercholesterolemia: Yes Liver Disease: No Seizures: Yes Thyroid Disease: Yes - Surgical History Abdominal Surgery: No Appendectomy: No Cardiac Surgery: No Cholecystectomy: No Lung Surgery: No Neurologic Surgery: No Orthopedic Surgery: No - Immunization History Immunization Up to Date: Yes - Suicide/Smoking/Psychosocial Hx Smoking Status: No Smoking History: Never smoked Have you smoked in the past 12 months: No Number of Cigarettes Smoked Daily: 0 Hx Alcohol Use: No Drug/Substance Use Hx: No Substance Use Type: None Review of Systems - Review of Systems Able to Perform ROS?: Yes Is the patient limited Frisian proficient: No Constitutional: Yes: Weakness (right thumb) HEENTM: No: Symptoms Reported Respiratory: No: Symptoms reported ABD/GI: No: Symptoms Reported Musculoskeletal: Yes: See HPI, Joint Pain (right thumb), Muscle Pain (right upper arm), Muscle Weakness (unable to bend right thumb), Joint Stiffness ( right thumb) Neurological: No: Numbness, Paresthesia, Tingling All Other Systems: Reviewed and Negative *Physical Exam - Vital Signs Last Vital Signs Temp Pulse Resp BP Pulse Ox 98.2 F 57 L 16 152/67 99 08/02/18 08:50 08/02/18 08:50 08/02/18 08:50 08/02/18 08:50 08/02/18 08:50 - Physical Exam Comments: 08/02/18 09:22 GENERAL: Well developed, well nourished. Awake and alert. No acute distress. CARDIOVASCULAR: Regular rate and rhythm. No murmurs, rubs, or gallops. PULMONARY: No evidence of respiratory distress. Lungs clear to auscultation bilaterally. No wheezing, rales or rhonchi. ABDOMINAL: Soft. Non-tender. Non-distended. No rebound or guarding. No organomegaly. Normoactive bowel sounds MUSCULOSKELETAL : mild tenderness over biceps and triceps of right upper arm. mild tenderness to MCP and IP joint of right thumb. Pain to thumb worse when attempt to flex IP joint of Rt thumb. No bony deformities SKIN: Warm and dry. Normal capillary refill. No rashes. NEUROLOGICAL: Alert, awake, appropriate. No motor deficits in the lower extremities. Gait is normal without ataxia. PSYCHIATRIC: Cooperative. Good eye contact. Appropriate mood and affect. 08/02/18 09:30 General Appearance: Yes: Nourished, Appropriately Dressed, Mild Distress Moderate Sedation - Procedure Monitoring Vital Signs: Procedure Monitoring Vital Signs Temperature 98.2 F 08/02/18 08:50 Pulse Rate 57 L 08/02/18 08:50 Respiratory Rate 16 08/02/18 08:50 Blood Pressure 152/67 08/02/18 08:50 O2 Sat by Pulse Oximetry (%) 99 08/02/18 08:50 ED Treatment Course - RADIOLOGY Radiology Studies Ordered: Category Date Time Status FINGER(S) RIGHT [RAD] Stat Radiology 08/02/18 09:18 Ordered HUMERUS-RIGHT [RAD] Stat Radiology 08/02/18 09:18 Ordered Medical Decision Making - Medical Decision Making 08/02/18 09:33 Patient with no significant past medical history present with complaint of pain to right thumb which is worse when she trying to bend the thumb status post trip and bracing herself with right hand 4 days ago. Exam significant for mild tenderness over MCP and IP joint of right thumb with pain worse to right thumb when I attempt to flex IP joint of the thumb. Mild crepitus to IP joint of right thumb when trying to flex the joint. Mild tenderness to biceps and triceps muscle of right upper arm which is most likely muscle strain. X-ray of right thumb and right humerus ordered. Treat based on imaging results 08/02/18 09:46 X-ray of right humerus and thumb shows no acute fracture or dislocation. Symptoms likely from strain and strain of right upper arm. Patient placed on prefabricated thumb splint and discharged home on NSAIDs with orthopedics follow -up. *DC/Admit/Observation/Transfer Diagnosis at time of Disposition: Strain of thumb, right Muscle strain, upper arm Qualifiers: Encounter type: initial encounter Laterality: right Qualified Code(s): S46.911A - Strain of unspecified muscle, fascia and tendon at shoulder and upper arm level, right arm, initial encounter - Discharge Dispostion Disposition: HOME Condition at time of disposition: Stable Decision to Admit order: No - Prescriptions Prescriptions: Naproxen 500 mg PO BID PRN #20 tablet PRN Reason: pain - Referrals Referrals: Joel Harrison MD [Staff Physician] - - Patient Instructions Printed Discharge Instructions: Sprain Additional Instructions: Take prescribed medication as needed for pain. Keep the finger splint on onto orthopedics follow-up. Follow-up referred orthopedics. - Post Discharge Activity
== END 2018-08-02 10:02 | disposition home or self-care (01) ==
LOC: JERFT 08:48
PROC: 2W3GX1Z Immobilization of Right Thumb using Splint (ICD-10-PCS; principal; 2018-08-02)
DX: S46.811A Strain of other muscles, fascia and tendons at shoulder and upper arm level, right arm, initial encounter (principal); S63.621A Sprain of interphalangeal joint of right thumb, initial encounter; W18.49XA Other slipping, tripping and stumbling without falling, initial encounter; Y93.89 Activity, other specified; Y92.89 Other specified places as the place of occurrence of the external cause; Y99.8 Other external cause status
CPT/HCPCS: 29130; 73060-TC-RT-FY; 73140-TC-RT-FY; 99281-25

== ENCOUNTER 2019-07-04 09:38 | Inpatient (IN) | payer OTHER ==
[2019-07-04 09:51] VITALS: BMI 36.0
[2019-07-04] MEDS ORDERED: SODIUM CHLORIDE 1,000 ML IV SCH (10:30)
--- NOTE | 2019-07-04 10:48 | PDOC ---
History of Present Illness - General Chief Complaint: CVA/TIA Stated Complaint: MOUTH NUMBENESS Time Seen by Provider: 07/04/19 10:20 History Source: Patient Exam Limitations: No Limitations - History of Present Illness Initial Comments: 07/04/19 10:40 HPI 74 y/o female with past medical history of chronic pancreatitis, pancreatic cyst , dysplipidemia, HTN, TIA, vertigo, GERD presenting with perioral numbness/ tingling x 2 days associated with decreased taste, worse last night at 8-9pm. she tried brushing her teeth with baking soda without improvement. chronic LLE cramping and weakness. no focal weakness, paresthesias in extremities. denies trauma. no fever or chills. no prior sx of similar perioral numbness/ tingling, but does have h/o TIA. Allergies: peanut/lactose Past Medical History/PSH: as above Social history: Lives with family. No tobacco, ETOH or drug use. Meds: as documented in EMR Family history: noncontributory PMD: Dr Cage Review of systems Constitutional: no fevers or chills. No generalized weakness HEENT: no headache . No congestion. +blurry vision, +dizziness, +mouth numbness/ tingling. CVS: no cp or syncope. Resp: no sob. No cough. Gastrointestinal: no abdominal pain, nausea, vomiting, diarrhea. Genitourinary: no urinary sx, hematuria. no retention or incontinence. MUSCULOSKELETAL: No joint pain and swelling. No neck or back pain. +LLE cramping and weakness SKIN: no redness or skin changes, no discharge, no rash. No wounds. Hematologic: no easy bruising/bleeding. NEUROLOGIC: No headache,, LOC or altered mental status. +leg weakness, + numbness + tingling. Psych: no anxiety or depression Allergic/Immunologic: food allergies All other systems reviewed and negative, or as documented in HPI. Physical exam General: Well appearing, awake and alert, NAD. HEENT: NCAT, PERRL, EOMI, clear conjunctiva, anicteric, moist mucus membranes, clear oropharynx, no oral lesions.. Neck: neck supple, FROM Resp: CTAB, normal and even respirations, no respiratory distress CVS: RRR, no murmurs, 2+ peripheral pulses throughout, no peripheral edema Abdomen: soft, NTND, no rebound or guarding. Back: nontender, normal inspection and ROM MSK: no edema, PALM x4, ROM intact. No clubbing or cyanosis. normal bulk and tone. Extremities: no calf tenderness Neuro: alert, oriented appropriately; CN II-XII grossly intact. Strength 5/5 in extremities, except 4/5 in LLE (chronic weakness/cramping). Sensation grossly intact to light touch. PALM x4. No cerebellar signs, no dysmetria, bilateral finger to nose equal and symmetric. Speech clear. Psych: Calm and cooperative Skin: warm and well perfused, cap refill <2 sec, normal color, no rash or skin discoloration. 07/04/19 11:46 Past History - Past Medical History Allergies/Adverse Reactions: Allergies Allergy/AdvReac Type Severity Reaction Status Date / Time peanut Allergy Verified 07/04/19 09:41 lactose AdvReac Verified 07/04/19 09:41 Home Medications: Ambulatory Orders Hydrochlorothiazide [Hctz -] 25 mg PO DAILY 11/30/18 Lovastatin 40 mg PO DAILY 11/30/18 Timolol 0.5% [Timoptic 0.5%] 1 drop OU BID 11/30/18 Brimonidine Tartrate [Alphagan P 0.1% -] 1 drop OU ASDIR 07/04/19 Anemia: No Asthma: No Cancer: No Cardiac Disorders: Yes CVA: No COPD: No CHF: No DVT: No Dementia: No Diabetes: No GI Disorders: Yes Disorders: No HTN: Yes Hypercholesterolemia: Yes Liver Disease: No Seizures: Yes Thyroid Disease: Yes - Surgical History Abdominal Surgery: No Appendectomy: No Cardiac Surgery: No Cholecystectomy: No Lung Surgery: No Neurologic Surgery: No Orthopedic Surgery: No - Immunization History Immunization Up to Date: Yes - Psycho Social/Smoking Cessation Hx Smoking Status: No Smoking History: Unknown if ever smoked Have you smoked in the past 12 months: No Number of Cigarettes Smoked Daily: 0 Hx Alcohol Use: No Drug/Substance Use Hx: No Substance Use Type: None Hx Substance Use Treatment: No *Physical Exam - Vital Signs Last Vital Signs Temp Pulse Resp BP Pulse Ox 98.1 F 64 18 157/73 96 07/04/19 09:43 07/04/19 09:43 07/04/19 09:43 07/04/19 09:43 07/04/19 09:43 NIH Stroke Scale - Last Known Well Date/Time & Onset Date Last Known Well: 07/02/19 - Initial Evaluation Level of consciousness: Alert Ask patient the month and their age: Answers both correctly Ask patient to open & close eyes; make fist and let go: Obeys both correctly Best gaze (horizontal eye movement): Normal Visual field testing: No visual field loss Facial paresis (Show teeth/raise eyebrows/close eyes tight): Normal symmetrical movement Motor Function: Left Arm: Normal Motor Function: Right Arm: Normal (extends arm 90 (or 45) degrees for 10 seconds without drift Motor Function: Left Leg: Drift Motor Function: Right Leg: Normal (extends leg 30 degrees for 5 seconds without drift) Limb Ataxia: No ataxia Sensory(Use pinprick test arms,legs,trunk,face/side to side): Normal Best language (Describe picture, name items, read sentences): No Aphasia Dysarthria (read several words): Normal articulation Extinction and Inattention: No abnormality - Total Score NIH Stroke Scale Score: 1 tPA Exclusion checklist 3-4.5h - Time Elapsed Date last known well: 07/02/19 - Thrombolytic Therapy Candidate Is patient eligible for thrombolytic therapy: No - Exclusion Criteria 3-4.5 hr SBP greater than 185 or DBP greater than 110mmHg despite tx: No Recent IC/spinal surgery,head trauma or stroke<3mos.: No Hx IC hemorrhage, IC neoplasm, AV malformation or aneurysm: No Active internal bleeding: No Blding diathesis(low plt ct, inc PTT,INR>1.7 or use of NOAC): No Symptoms suggest subarachnoid hemorrhage: No CT demonstrates multilobar infarct(>1/3 cerebral hemiphere): No Arterial puncture at noncompressible site in previous 7 days: No Blood glucose concentration less than 50mg/dL (2.7mmol/L): No - Relative Exclusion Criteria 3-4.5 hr Life expectancy <1 yr or severe co-morbid illness: No : No Patient/family refused: No Rapid improvement: No Stroke severity too mild: Yes Recent acute KS (w/in previous 3 months): No Seizure at onset with postictal residual neuro impairments: No Major surgery or serious trauma w/in previous 14 days: No Recent GI or hemorrhage (w/in previous 21 days): No - Add'l Relative Exclusion 3-4.5 hr Age > 80: No Hx of both diabetes AND prior ischemic stroke: No Taking an oral anticoagulant regardless of INR: No NIHSS >25: No - Ineligibility reason(s) Reasons No tPA given: Outside of window - delayed arrival Heart Score/ECG Review #1 ECG reviewed & interpreted by me at: 10:35 General ECG Interpretation: Sinus Rhythm, Normal Rate 07/04/19 11:28 EKG sinus bradycardia 52 bpm, low voltage waves, left axis deviation, no interval abnormalities, narrow QRS, ST and T wave segments and morphology normal. Nonspecific T wave abnormalities Critical Care Time/MDM Note - Medical Decision Making Note: 07/04/19 11:19 Vital Signs Temp Pulse Resp BP Pulse Ox 98.1 F 64 18 157/73 96 07/04/19 09:43 07/04/19 09:43 07/04/19 09:43 07/04/19 09:43 07/04/19 11:06 ddx. TIA, stroke, anemia, electrolyte/metabolic derangements, neuropathy. not tpa candidate, as pt is >2 days of perioral symptoms/paresthesias chronic LLE weakness. 2/2 cramping labs and lytes wnl, trop/lipid panel neg. CXR unremarkable, neg for acute pathology ct head neg acute intracranial hemorrhage edema midline shift mass-effect or fracture. No evidence of infarction, will need MRI for further delineation of her facial/perioral paresthesias, as could be pure sensory stroke, thalamic/ lacunar. 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 dispo: admit for CVA/tia workup, with perioral numbness/tingling with decreased taste, tele bed. admit to Dr Anderson service, s/o to GIGI Fisher. 07/04/19 11:48 07/04/19 11:49 Discharge - Discharge Information Problems reviewed: Yes Clinical Impression/Diagnosis: Paresthesia of lower lip Condition: Guarded - Admission Yes - Follow up/Referral Referrals: Dk Cage MD, MD [Primary Care Provider] - - Patient Discharge Instructions - Post Discharge Activity
[2019-07-04 11:30] LABS: BASO % 0.4 % (0-2.0); EOS % 1.5 % (0-4.5); HEMATOCRIT 40.2 % (32.4-45.2); HEMOGLOBIN 13.2 GM/dL (10.7-15.3); LYMPH % 32.1 % (8-40); MCH 28.3 pg (25.7-33.7); MCHC 32.8 g/dl (32.0-36.0); MEAN CELL VOLUME 86.3 fl (80-96); MONO % 10.6 % (3.8-10.2); NEUT % 55.4 % (42.8-82.8); PLATELET COUNT 194 K/MM3 (134-434); RBC 4.66 M/mm3 (3.60-5.2); RDW 15.4 % (11.6-15.6); WHITE BLOOD COUNT 5.5 K/mm3 (4.0-10.0)
[2019-07-04 11:58] LABS: ALBUMIN 3.7 g/dl (3.4-5.0); BILIRUBIN,TOTAL 0.3 mg/dL (0.2-1); BLOOD UREA NITROGEN 17.3 mg/dL (7-18); CALCIUM 9.9 mg/dL (8.5-10.1); CREATININE 0.9 mg/dL (0.55-1.3); POTASSIUM 4.4 mmol/L (3.5-5.1); TOT PROT 7.2 g/dl (6.4-8.2)
--- NOTE | 2019-07-04 12:08 | HP ---
Admitting History and Physical - Primary Care Physician PCP: Dk Cage MD - Admission Chief Complaint: Numbness to mouth History of Present Illness: Patient is a 74 y/o female with past medical history of HTN, HLD, Glaucoma, Pancreatic cyst, TIA, GERD. Patient presented to ER after experiencing numbness to her mouth with loss of taste for a few days. She did feel lightheaded and weak as well. Patient and family member at bedside deny facial droop or slurred speech with mouth numbness. Denies chest pain, SOB, or palpitations. 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: TIA, Vertigo Cardiovascular: Yes: HTN, Hyperlipdemia Gastrointestinal: Yes: GERD Renal/: Yes: Other (Pancreatic cyst) ENT: Yes: Other (Glaucoma) - Smoking History Smoking history: Unknown if ever smoked Have you smoked in the past 12 months: No Aproximately how many cigarettes per day: 0 - Alcohol/Substance Use Hx Alcohol Use: No - Social History ADL: Independent History of Recent Travel: No Home Medications - Allergies Allergies/Adverse Reactions: Allergies Allergy/AdvReac Type Severity Reaction Status Date / Time peanut Allergy Verified 07/04/19 09:41 lactose AdvReac Verified 07/04/19 09:41 - Home Medications Home Medications: Ambulatory Orders Hydrochlorothiazide [Hctz -] 25 mg PO DAILY 11/30/18 Lovastatin 40 mg PO DAILY 11/30/18 Timolol 0.5% [Timoptic 0.5%] 1 drop OU BID 11/30/18 Brimonidine Tartrate [Alphagan P 0.1% -] 1 drop OU ASDIR 07/04/19 Review of Systems - Review of Systems Constitutional: reports: Lethargy, Weakness Eyes: reports: No Symptoms HENT: reports: Other (mouth numbness) Neck: reports: No Symptoms Cardiovascular: reports: No Symptoms Respiratory: reports: SOB on Exertion Gastrointestinal: reports: No Symptoms Genitourinary: reports: No Symptoms Breasts: reports: No Symptoms Reported Musculoskeletal: reports: No Symptoms Integumentary: reports: No Symptoms Neurological: reports: Numbness (mouth), Weakness (LLE) Endocrine: reports: No Symptoms Hematology/Lymphatic: reports: No Symptoms Psychiatric: reports: No Symptoms Physical Examination Vital Signs: Vital Signs Temperature 98.1 F 07/04/19 09:43 Pulse Rate 64 07/04/19 09:43 Respiratory Rate 18 07/04/19 09:43 Blood Pressure 157/73 07/04/19 09:43 O2 Sat by Pulse Oximetry (%) 96 07/04/19 11:06 Constitutional: Yes: No Distress, Calm Eyes: Yes: Conjunctiva Clear HENT: Yes: Atraumatic Neck: Yes: Supple Cardiovascular: Yes: Regular Rate and Rhythm Respiratory: Yes: Regular, CTA Bilaterally Gastrointestinal: Yes: Normal Bowel Sounds, Soft, Abdomen, Obese, Tenderness ( luq) Musculoskeletal: Yes: Muscle Weakness Extremities: Yes: WNL Edema: Yes Edema: LLE: Trace, RLE: Trace Neurological: Yes: Alert, Oriented, Weakness (LLE) Psychiatric: Yes: Alert Labs: CBC, BMP 07/04/19 11:00 07/04/19 11:00 Imaging - Results X-ray: Report Reviewed Cat Scan: Report Reviewed Problem List - Problems (1) HLD (hyperlipidemia) Assessment/Plan: -Crestor -lipid panel Code(s): E78.5 - HYPERLIPIDEMIA, UNSPECIFIED (2) Glaucoma Assessment/Plan: -Latanprost, Alphagan, Timolol Code(s): H40.9 - UNSPECIFIED GLAUCOMA (3) Pancreatic cyst Assessment/Plan: -being followed by GI and has follow up appointment with specialist at [facility] Code(s): K86.2 - CYST OF PANCREAS (4) Hypertension Assessment/Plan: -HCTZ -low Na diet Code(s): I10 - ESSENTIAL (PRIMARY) HYPERTENSION (5) TIA (transient ischemic attack) Assessment/Plan: -Cardiology and Neurology consult -Telemetry monitoring -lipid panel -Carotid US -Neuro checks q4h -Head CT scan shows no evidence of acute intracranial hemorrhage or edema, midlineshift, mass effect or skull fracture -fall precautions Code(s): G45.9 - TRANSIENT CEREBRAL ISCHEMIC ATTACK, UNSPECIFIED Assessment/Plan see problem list dvt ppx
--- NOTE | 2019-07-04 17:01 | CON.CARD ---
Consult Consult Specialty:: Cardiology Reason for Consultation:: TIA - History of Present Illness Chief Complaint: Loss of taste. Mouth numbness. Lightheadness History of Present Illness: This is a 74 year old female with a PMH of HTN, HLD, Glaucoma, Pancreatic cyst, GERD, and past TIA's. She presents now to the ED with numbness to her mouth with loss of taste for a few days. Some complaints of lightheadedness earlier. 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, Vertigo Cardio/Vascular: Yes: HTN, Hyperlipdemia Gastrointestinal: Yes: GERD Renal/: Yes: Other (Pancreatic cyst) ...: No ENT: Yes: Other (Glaucoma) - Alcohol/Substance Use Hx Alcohol Use: No - Smoking History Smoking history: Never smoked Have you smoked in the past 12 months: No Aproximately how many cigarettes per day: 0 - Social History ADL: Independent History of Recent Travel: No Home Medications - Allergies Allergies/Adverse Reactions: Allergies Allergy/AdvReac Type Severity Reaction Status Date / Time peanut Allergy Verified 07/04/19 09:41 lactose AdvReac Verified 07/04/19 09:41 - Home Medications Home Medications: Ambulatory Orders Hydrochlorothiazide [Hctz -] 25 mg PO DAILY 11/30/18 Lovastatin 40 mg PO DAILY 11/30/18 Timolol 0.5% [Timoptic 0.5%] 1 drop OU BID 11/30/18 Brimonidine Tartrate [Alphagan P 0.1% -] 1 drop OU ASDIR 07/04/19 Vital Signs: Vital Signs Temperature 98.6 F 07/04/19 16:30 Pulse Rate 18 L 07/04/19 16:30 Respiratory Rate 54 H 07/04/19 16:30 Blood Pressure 160/99 07/04/19 16:30 O2 Sat by Pulse Oximetry (%) 95 07/04/19 16:30 Constitutional: Yes: No Distress Eyes: Yes: WNL HENT: Yes: WNL Neck: Yes: WNL Respiratory: Yes: CTA Bilaterally Gastrointestinal: Yes: Soft Cardiovascular: Yes: Regular Rate and Rhythm Heart Sounds: Yes: S1, S2 Extremities: Yes: WNL Edema: No Neurological: Yes: Alert, Oriented - Other Data Labs, Other Data: CBC, BMP 07/04/19 11:00 07/04/19 11:00 Troponin, BNP 07/04/19 11:00 Troponin I < 0.02 Troponin, BNP 07/04/19 11:00 Troponin I < 0.02 Assessment/Plan 74 year old female with a PMH of HTN, HLD, Glaucoma, Pancreatic cyst, GERD, and past TIA's. She presents now to the ED with numbness to her mouth with loss of taste for a few days. Some complaints of lightheadedness earlier. Possible TIA Continue medications for secondary prevention Agree with ASA 81 mg po daily and Crestor 5 mg QHS Continue HCTZ 25 mg PO daily for BP control She is maintaining Normal Sinus Rhythm, so doubt cardioembolic event, however, she would benefit from event monitoring as an outpatient so she should have cardiology outpatient follow up
--- NOTE | 2019-07-04 17:20 | CON.NEURO ---
Consult Consult Specialty:: Xenia Referred by:: ER - History of Present Illness History of Present Illness: 74-year-old right-handed female patient with multiple medical problem including history of hypertension, coronary artery disease, osteoarthritis, pancreatic cyst. Patientpresented to the hospital with a chief complaint neurologically offeeling lightheaded with perioral numbness and tingling and loss of sensation on the tongue. CAT scan of the head revealed no evidence for acute pathology patient was admitted for further treatmentquestionable TIA. Patient denies any prior similar symptoms. Patient with no numbness or tingling in the hands. No focal weakness. No difficulty swallowing. 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, Vertigo Cardio/Vascular: Yes: HTN, Hyperlipdemia Gastrointestinal: Yes: GERD Renal/: Yes: Other (Pancreatic cyst) ...: No ENT: Yes: Other (Glaucoma) - Alcohol/Substance Use Hx Alcohol Use: No - Smoking History Smoking history: Never smoked Have you smoked in the past 12 months: No Aproximately how many cigarettes per day: 0 - Social History ADL: Independent History of Recent Travel: No Home Medications - Allergies Allergies/Adverse Reactions: Allergies Allergy/AdvReac Type Severity Reaction Status Date / Time peanut Allergy Verified 07/04/19 09:41 lactose AdvReac Verified 07/04/19 09:41 - Home Medications Home Medications: Ambulatory Orders Hydrochlorothiazide [Hctz -] 25 mg PO DAILY 11/30/18 Lovastatin 40 mg PO DAILY 11/30/18 Timolol 0.5% [Timoptic 0.5%] 1 drop OU BID 11/30/18 Brimonidine Tartrate [Alphagan P 0.1% -] 1 drop OU ASDIR 07/04/19 Family Medical History Family History: Unremarkable Review of Systems - Review of Systems Constitutional: reports: No Symptoms Eyes: reports: No Symptoms HENT: reports: No Symptoms Neurological: reports: Dizziness, Incoordination, Parasthesia, Unsteady Gait Physical Exam-Neuro Vital Signs: Vital Signs Temperature 98.6 F 07/04/19 16:30 Pulse Rate 18 L 07/04/19 16:30 Respiratory Rate 54 H 07/04/19 16:30 Blood Pressure 160/99 07/04/19 16:30 O2 Sat by Pulse Oximetry (%) 95 07/04/19 16:30 Constitutional: Yes: Well Nourished Neck: Yes: WNL Cardiovascular: Yes: WNL Labs: CBC, BMP 07/04/19 11:00 07/04/19 11:00 - Neuro Exam Level Of Consciousness: Yes: Oriented to Person, Oriented to Place, Oriented to Time Speech: WNL Dominant Hand: Right Cranial Nerves II-XII Intact: Yes Gag: Present DTR's: 1+ Left Bicep, 1+ Right Bicep, 1+ Left Brachioradialis, 1+ Right Brachioradialis Response to light touch: Normal Response to pain prick: Normal Response to temperature: Normal Motor Strength: 3/5: Left Arm, Right Arm, Left Leg, Right Leg Gait: Deferred Imaging - Results Cat Scan: Image Reviewed Assessment/Plan Perioral numbness and loss of sensation on the tongue is not a symptom of stroke patient with risk factors of stroke including prior TIAs age hypertension 1. Neuro checks every 1 hour. 2. MRI of the brain with no contrast. 3. Blood work including zinc mercury B12 thyroid function. 4. Continue antiplatelet therapy. Thank you very much for allowing me to be part of this patient's neurological care. Clayton Michaels M.D.
[2019-07-04] MEDS ORDERED: ROSUVASTATIN CA 5 MG TABLET (FP) PO SCH (22:00)
[2019-07-04] MEDS: TIMOLOL 0.5% OPHTHALMIC SOL 5 ML BOTTLE OU SCH (22:25)
[2019-07-04] MEDS: LATANOPROST 0.005% OPHTH SOLN 2.5ML BOTTLE OU SCH (22:25)
[2019-07-04] MEDS: BRIMONIDINE TARTRATE 0.1% OPHTHALMIC 5 ML BOTTLE OU SCH (22:25)
[2019-07-05 07:05] LABS: BASO % 0.3 % (0-2.0); EOS % 1.4 % (0-4.5); HEMATOCRIT 37.9 % (32.4-45.2); HEMOGLOBIN 12.6 GM/dL (10.7-15.3); MCH 28.3 pg (25.7-33.7); MCHC 33.2 g/dl (32.0-36.0); MEAN CELL VOLUME 85.3 fl (80-96); MEAN PLT VOLUME 8.9 fl (7.5-11.1); NEUT % 46.3 % (42.8-82.8); PLATELET COUNT 187 K/MM3 (134-434); RBC 4.45 M/mm3 (3.60-5.2); RDW 15.7 % (11.6-15.6); WHITE BLOOD COUNT 6.1 K/mm3 (4.0-10.0)
[2019-07-05 07:38] LABS: ALBUMIN 3.5 g/dl (3.4-5.0); ALK PHOS 53 U/L (45-117); ANION GAP 7 MMOL/L (8-16); BILIRUBIN,TOTAL 0.3 mg/dL (0.2-1); BLOOD UREA NITROGEN 18.6 mg/dL (7-18); CALCIUM 8.9 mg/dL (8.5-10.1); CHLORIDE 104 mmol/L (98-107); CHOLESTEROL 192 mg/dL (50-200); CO2 29 mmol/L (21-32); CREATININE 0.9 mg/dL (0.55-1.3); GLUCOSE,RANDOM 99 mg/dL (74-106); HDL CHOLESTEROL 62 mg/dL (40-60); LDL CHOLESTEROL (ONLY SJRH) 113 mg/dL (5-100); MAGNESIUM 1.9 mg/dL (1.8-2.4); PHOSPHOROUS 4.6 mg/dL (2.5-4.9); SGOT/AST 23 U/L (15-37); SGPT/ALT 28 U/L (13-61); SODIUM 140 mmol/L (136-145); TOT PROT 6.5 g/dl (6.4-8.2); TRIGLYCERIDES 107 mg/dL (0-150)
[2019-07-05] MEDS ORDERED: PT OWN MED DRAWER 7, Y5N ONE (09:33)
[2019-07-05] MEDS: TIMOLOL 0.5% OPHTHALMIC SOL 5 ML BOTTLE OU SCH ×2 (09:53→21:39)
[2019-07-05] MEDS: ASPIRIN COATED 81 MG TABLET.EC PO SCH (09:53)
[2019-07-05] MEDS: BRIMONIDINE TARTRATE 0.1% OPHTHALMIC 5 ML BOTTLE OU SCH ×2 (09:53→21:39)
[2019-07-05] MEDS: HYDROCHLOROTHIAZIDE 25 MG TABLET (FP) PO SCH (09:53)
[2019-07-05] MEDS ORDERED: ROSUVASTATIN CA 5 MG TABLET (FP) PO SCH (11:58)
--- NOTE | 2019-07-05 12:10 | PN ---
Progress Note, Physician Chief Complaint: AWAKE ALERT SON BEDSIDE EVENTS AND NOTES REVIEWED DENIES WEAKNESS OR MUSCLE PAIN - Current Medication List Current Medications: Active Medications Aspirin (Ecotrin -) 81 mg PO DAILY [facility] Last Admin: 07/05/19 09:53 Dose: 81 mg Brimonidine Tartrate (Alphagan P 0.1% -) 1 drop OU BID [facility] Last Admin: 07/05/19 09:53 Dose: 1 drop Hydrochlorothiazide (Hctz -) 25 mg PO DAILY [facility] Last Admin: 07/05/19 09:53 Dose: 25 mg Sodium Chloride (Normal Saline -) 1,000 mls @ 42 mls/hr IV ASDIR [facility] Last Admin: 07/04/19 10:58 Dose: 42 mls/hr Latanoprost (Xalatan 0.005% Eye Drops -) 1 drop OU HS [facility] Last Admin: 07/04/19 22:25 Dose: 1 drop Rosuvastatin Calcium (Crestor -) 10 mg PO HS [facility] Timolol Maleate (Timoptic 0.5%) 1 drop OU BID [facility] Last Admin: 07/05/19 09:53 Dose: 1 drop - Objective Vital Signs: Vital Signs Temperature 98.3 F 07/05/19 08:00 Pulse Rate 61 07/05/19 08:00 Respiratory Rate 20 07/05/19 09:00 Blood Pressure 134/72 07/05/19 08:00 O2 Sat by Pulse Oximetry (%) 95 07/05/19 09:00 Constitutional: Yes: Mild Distress Cardiovascular: Yes: Regular Rate and Rhythm Respiratory: Yes: WNL Gastrointestinal: Yes: Soft, Abdomen, Obese Genitourinary: Yes: WNL Musculoskeletal: Yes: WNL Extremities: Yes: WNL Edema: No Peripheral Pulses WNL: Yes Integumentary: Yes: WNL Wound/Incision: Yes: Clean/Dry Neurological: Yes: WNL ...Motor Strength: WNL Psychiatric: Yes: WNL Labs: CBC, BMP 07/05/19 05:20 07/05/19 05:20 Problem List - Problems (1) Glaucoma Code(s): H40.9 - UNSPECIFIED GLAUCOMA (2) HLD (hyperlipidemia) Code(s): E78.5 - HYPERLIPIDEMIA, UNSPECIFIED (3) Paresthesia of lower lip Code(s): R20.2 - PARESTHESIA OF SKIN (4) TIA (transient ischemic attack) Code(s): G45.9 - TRANSIENT CEREBRAL ISCHEMIC ATTACK, UNSPECIFIED (5) Headache Code(s): R51 - HEADACHE (6) Muscle strain, upper arm Code(s): S46.919A - STRAIN UNSP MUSC/FASC/TEND AT SHLDR/UP ARM, UNSP ARM, INIT Qualifiers: Encounter type: initial encounter Laterality: right Qualified Code(s): S46.911A - Strain of unspecified muscle, fascia and tendon at shoulder and upper arm level, right arm, initial encounter (7) Spinal stenosis of cervical region Code(s): M48.02 - SPINAL STENOSIS, CERVICAL REGION (8) Hypertension Code(s): I10 - ESSENTIAL (PRIMARY) HYPERTENSION Assessment/Plan R/O CVA MRI BRAIN PENDING H/O CERVICAL SPINE STENOSIS CAN CAUSE NEUROPATHY DENIES CHEST PAIN DOLORES ASENCIO IS HER PMD WILL D/W HIM OLD RECORD. 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
--- NOTE | 2019-07-05 13:36 | EKG ---
Test Reason : Blood Pressure : / mmHG Vent. Rate : 052 BPM Atrial Rate : 052 BPM P-R Int : 158 ms QRS Dur : 082 ms QT Int : 414 ms P-R-T Axes : 069 -33 079 degrees QTc Int : 385 ms SINUS BRADYCARDIA LEFT AXIS DEVIATION NONSPECIFIC T WAVE ABNORMALITY ABNORMAL ECG WHEN COMPARED WITH ECG OF 30-NOV-2018 03:14, QT HAS SHORTENED Confirmed by MD MASSIEL, SANDIE ([id number]) on 07/05/2019 1:36:24 PM Referred By: Confirmed By:SANDIE RANKIN MD
[2019-07-05] MEDS: LATANOPROST 0.005% OPHTH SOLN 2.5ML BOTTLE OU SCH (21:38)
[2019-07-06] MEDS ORDERED: ACETAMINOPHEN 325 MG TABLET (FP) PO PRN (06:11)
[2019-07-06 09:24] VITALS: BP 117/69; PULSE 66; TEMP 98.3
[2019-07-06] MEDS: TIMOLOL 0.5% OPHTHALMIC SOL 5 ML BOTTLE OU SCH (09:41)
[2019-07-06] MEDS: ASPIRIN COATED 81 MG TABLET.EC PO SCH (09:41)
[2019-07-06] MEDS: BRIMONIDINE TARTRATE 0.1% OPHTHALMIC 5 ML BOTTLE OU SCH (09:41)
[2019-07-06] MEDS: HYDROCHLOROTHIAZIDE 25 MG TABLET (FP) PO SCH (09:41)
--- NOTE | 2019-07-06 11:22 | DS ---
Physical Examination Vital Signs: Vital Signs Temperature 98.3 F 07/06/19 09:00 Pulse Rate 66 07/06/19 09:00 Respiratory Rate 20 07/06/19 09:00 Blood Pressure 117/69 07/06/19 09:00 O2 Sat by Pulse Oximetry (%) 96 07/06/19 09:00 Findings/Remarks: MRI BRAIN NO ACUTE CHANGES, DENIES WEAKNESS OR HEADACHE Constitutional: Yes: No Distress Eyes: Yes: WNL HENT: Yes: WNL Neck: Yes: WNL Cardiovascular: Yes: WNL Respiratory: Yes: WNL Gastrointestinal: Yes: WNL Musculoskeletal: Yes: WNL Extremities: Yes: WNL Edema: No Neurological: Yes: WNL Labs: CBC, BMP 07/05/19 05:20 07/05/19 05:20 Discharge Summary Problems reviewed: Yes Reason For Visit: PARESTHESIA Current Active Problems Glaucoma (Acute) HLD (hyperlipidemia) (Acute) Paresthesia of lower lip (Acute) TIA (transient ischemic attack) (Acute) Procedures: Principal: MRI BRAIN Hospital Course: WORKUP FOR NEUROLOGICAL SYMPTOMS NEGATIVE, LIKELY TIA, CRESTOR ADDED WITH ASA 81MG F/U OUTPATIENT Plan of Treatment: SEE DR CAGE, LOW FAT LOW SALT DIET TAKE YOUR MEDICATION WE PRESCRIBED Condition: Improved - Instructions Diet, Activity, Other Instructions: SEE DR CAGE IN 1 WEEK LOW SALT AND LOW FAT DIET Referrals: Dk Cage MD, MD [Primary Care Provider] - Disposition: HOME - Home Medications Comprehensive Discharge Medication List: Ambulatory Orders Hydrochlorothiazide [Hctz -] 25 mg PO DAILY 11/30/18 Timolol 0.5% [Timoptic 0.5%] 1 drop OU BID 11/30/18 Brimonidine Tartrate [Alphagan P 0.1% -] 1 drop OU ASDIR 07/04/19 Acetaminophen [Tylenol .Regular Strength -] 650 mg PO Q6H PRN tablet 07/06/19 Aspirin Coated [Ecotrin -] 81 mg PO DAILY tablet.ec 07/06/19 Brimonidine Tartrate [Alphagan P 0.1% -] 1 drop OU BID drops 07/06/19 Hydrochlorothiazide [Hctz -] 25 mg PO DAILY tablet 07/06/19 Latanoprost 0.005% Eye Drops [Xalatan 0.005% Eye Drops -] 1 drop OU HS drops Rosuvastatin [Crestor -] 10 mg PO HS #30 tablet 07/06/19 Timolol 0.5% [Timoptic 0.5%] 1 drop OU BID drops 07/06/19
== END 2019-07-06 12:52 | disposition home or self-care (01) | DRG 69 ==
LOC: JER 09:38 → JERBED 11:30 → J4W 12:39
PROVIDERS: ADMIT Family Medicine; ATTEND Family Medicine
DX: G45.9 Transient cerebral ischemic attack, unspecified (principal); K86.2 Cyst of pancreas; K86.1 Other chronic pancreatitis; I10 Essential (primary) hypertension; E78.5 Hyperlipidemia, unspecified; H40.9 Unspecified glaucoma; K21.9 Gastro-esophageal reflux disease without esophagitis; I25.10 Atherosclerotic heart disease of native coronary artery without angina pectoris; E66.9 Obesity, unspecified; Z68.35 Body mass index [BMI] 35.0-35.9, adult; M48.02 Spinal stenosis, cervical region; S46.911A Strain of unspecified muscle, fascia and tendon at shoulder and upper arm level, right arm, initial encounter; R20.2 Paresthesia of skin; R51 Headache; G62.9 Polyneuropathy, unspecified
CPT/HCPCS: 36415; 70450-TC; 70551-TC; 71045-TC-FY; 80053; 80061; 82550; 82553; 82962; 83721; 83735; 84100; 84436; 84443; 84484; 85025; 86850; 86900; 86901; 93005; 93010; 93880-TC; 99283-25; J7030

== ENCOUNTER 2019-11-29 07:49 | Emergency (ER) | payer OTHER ==
[2019-11-29 07:59] VITALS: BP 146/73; PULSE 75; TEMP 98; BMI 35.9
--- NOTE | 2019-11-29 08:14 | PDOC ---
History of Present Illness - General Chief Complaint: Pain Stated Complaint: PAIN History Source: Patient Exam Limitations: No Limitations - History of Present Illness Initial Comments: 11/29/19 08:42 74 y/o female with past medical history of chronic pancreatitis, pancreatic cyst, dysplipidemia, HTN, TIA, vertigo, and GERD presents to the emergency department with left hand numbness and tingling with associative right neck pain with right upper back pain. Per the patient, she states she was lifting heavy boxes in her home 2 days ago and has had the symptoms for the past two days. Denies falls and trauma. Denies loss of motor strength in the left hand. Per the patient, she denies the following: fevers, chills, SOB, chest pain, nausea, vomiting, dysuria, hematuria, diarrhea, hematochezia, leg pain/swelling, and melena. The patient denies dizziness, lightheadedness, and visual disturbances. Allergies: peanut, lactose tPA Exclusion Checklist 0-3hr - Time Elapsed Date last known well: 11/27/19 Time last known well: 12:00 Elaspsed time: 4 Day(s) and 0 Hour(s) and 26 Minutes - Thrombolytic Therapy Candidate Is the patient eligible for Thrombolytic Therapy?: No - Ineligibility reason(s) Reasons No tPA given: Outside of window - delayed arrival NIH Stroke Scale - Last Known Well Date/Time & Onset Date Last Known Well: 11/27/19 Time Last Known Well: 12:00 - Initial Evaluation Level of consciousness: Alert Ask patient the month and their age: Answers both correctly Ask patient to open & close eyes; make fist and let go: Obeys both correctly Best gaze (horizontal eye movement): Normal Visual field testing: No visual field loss Facial paresis (Show teeth/raise eyebrows/close eyes tight): Normal symmetrical movement Motor Function: Left Arm: Normal Motor Function: Right Arm: Normal (extends arm 90 (or 45) degrees for 10 seconds without drift Motor Function: Left Leg: Normal (extends leg 30 degrees for 5 seconds without drift) Motor Function: Right Leg: Normal (extends leg 30 degrees for 5 seconds without drift) Limb Ataxia: No ataxia Sensory(Use pinprick test arms,legs,trunk,face/side to side): Mild to moderate decrease in sensation Best language (Describe picture, name items, read sentences): No Aphasia Dysarthria (read several words): Normal articulation Extinction and Inattention: No abnormality - Total Score NIH Stroke Scale Score: 1 Past History - Past Medical History Allergies/Adverse Reactions: Allergies Allergy/AdvReac Type Severity Reaction Status Date / Time peanut Allergy Verified 11/29/19 07:57 lactose AdvReac Verified 11/29/19 07:57 Home Medications: Ambulatory Orders Hydrochlorothiazide [Hctz -] 25 mg PO DAILY 11/30/18 Brimonidine Tartrate [Alphagan P 0.1% -] 1 drop OU ASDIR 07/04/19 Acetaminophen [Tylenol .Regular Strength -] 650 mg PO Q6H PRN tablet 07/06/19 Aspirin Coated [Ecotrin -] 81 mg PO DAILY tablet.ec 07/06/19 Latanoprost 0.005% Eye Drops [Xalatan 0.005% Eye Drops -] 1 drop OU HS drops 07/06/19 Timolol 0.5% [Timoptic 0.5%] 1 drop OU BID drops 07/06/19 Lovastatin 40 mg PO HS 11/29/19 Anemia: No Asthma: No Cancer: No Cardiac Disorders: Yes CVA: No COPD: No CHF: No DVT: No Dementia: No Diabetes: No GI Disorders: Yes Disorders: No HTN: Yes Hypercholesterolemia: Yes Liver Disease: No Seizures: Yes Thyroid Disease: Yes - Surgical History Abdominal Surgery: No Appendectomy: No Cardiac Surgery: No Cholecystectomy: No Lung Surgery: No Neurologic Surgery: No Orthopedic Surgery: No - Immunization History Immunization Up to Date: Yes - Psycho Social/Smoking Cessation Hx Smoking Status: No Smoking History: Unknown if ever smoked Have you smoked in the past 12 months: No Number of Cigarettes Smoked Daily: 0 Hx Alcohol Use: No Drug/Substance Use Hx: No Substance Use Type: None Hx Substance Use Treatment: No Review of Systems - Review of Systems Able to Perform ROS?: Yes Is the patient limited Uzbek proficient: No Constitutional: No: Chills, Diaphoresis, Fever, Weakness HEENTM: No: Eye Pain, Ear Pain, Nose Pain, Throat Pain, Mouth Pain Respiratory: No: Cough, Shortness of Breath, Hemoptysis Cardiac (ROS): No: Chest Pain, Lightheadedness ABD/GI: No: Constipated, Diarrhea, Nausea, Rectal Bleeding, Vomiting, Abdominal cramping, Tarry Stools : No: Burning, Hematuria Musculoskeletal: Yes: Back Pain (right upper back pain), Neck Pain (right neck pain). No: Joint Pain Integumentary: No: Bruising, Rash Neurological: Yes: Tingling (none currently in the left hand). No: Headache Psychiatric: No: Change in Appetite Endocrine: No: Unexplained Weight Loss Hematologic/Lymphatic: No: Anemia *Physical Exam - Vital Signs Last Vital Signs Temp Pulse Resp BP Pulse Ox 98 F 75 18 146/73 97 11/29/19 07:56 11/29/19 07:56 11/29/19 07:56 11/29/19 07:56 11/29/19 07:56 - Physical Exam General Appearance: Yes: Nourished, Appropriately Dressed. No: Apparent Distress, Intoxicated HEENT: positive: EOMI, KEYUR, Normal Voice, Symmetrical, Pharynx Normal, Hearing Grossly Normal. negative: Pale Conjunctivae, Scleral Icterus (R), Scleral Icterus (L), Muffled/Hoarse voice, Pharyngeal Erythema, Tonsillar Exudate, Tonsillar Erythema, Nasal Congestion, Rhinorrhea, Sinus Tenderness, Excessive drooling Neck: positive: Trachea midline, Supple, Tender lateral (right paracervical spine pain). negative: Tender, Lymphadenopathy (R), Lymphadenopathy (L) Respiratory/Chest: positive: Lungs Clear, Normal Breath Sounds. negative: Chest Tender, Respiratory Distress, Accessory Muscle Use, Decreased Breath Sounds, Crackles, Rales, Rhonchi, Stridor, Wheezing Cardiovascular: positive: Regular Rhythm, Regular Rate, S1, S2. negative: Systolic Murmur Gastrointestinal/Abdominal: positive: Normal Bowel Sounds, Flat, Soft. negative: Tender, Distended, Guarding, Rebound Lymphatic: negative: Adenopathy Musculoskeletal: positive: Normal Inspection, Muscle Spasm (right trapezius, rhomboid major and rhomboid minor), Vertebral Tenderness (no midline tenderness). negative: CVA Tenderness Extremity: positive: Normal Capillary Refill, Normal Inspection, Normal Range of Motion. negative: Tender, Swelling, Calf Tenderness Integumentary: positive: Normal Color, Dry, Warm. negative: Rash, Swelling Neurologic: positive: pediatric acute care unit nurse II-XII NML intact, Fully Oriented, Alert, Normal Mood/Affect, Normal Response, Motor Strength 5/5, Responsive, Sensory Deficit (C5, C6, C7, C8 mild sensory decrease in the elft arm), Finger to Nose (intact bilaterally). negative: EOM Palsy, Facial Droop ED Treatment Course - LABORATORY CBC & Chemistry Diagram: 11/29/19 08:15 11/29/19 08:39 Medical Decision Making - Medical Decision Making 11/29/19 10:44 74 y/o female with past medical history of chronic pancreatitis, pancreatic cyst, dysplipidemia, HTN, TIA, vertigo, and GERD presents to the emergency department with left hand numbness and tingling with associative right neck pain with right upper back pain Initial vitals: Initial Vital Signs Temp Pulse Resp BP Pulse Ox 98 F 75 18 146/73 97 11/29/19 07:56 11/29/19 07:56 11/29/19 07:56 11/29/19 07:56 11/29/19 07:56 Work up: patient presents to the emergency department with right upper back pain with neck pain and left hand numbness and tingling likely the patient is having radiculopathy at the cervical spine level likely secondary from canal stenosis vs DJD. will obtain head ct and cervical spine CT with labs and reassess patient was given lidoderm and tylenol Laboratory Tests 11/29/19 11/29/19 11/29/19 08:15 08:15 08:39 WBC 6.4 RBC 4.61 Hgb 13.2 Hct 39.1 MCV 84.9 MCH 28.6 MCHC 33.7 RDW 14.8 Plt Count 212 MPV 9.0 Absolute Neuts (auto) 3.6 Neutrophils % 57.4 D Lymphocytes % 29.4 D Monocytes % 11.4 H Eosinophils % 1.2 Basophils % 0.6 Nucleated RBC % 0 PT with INR 12.90 INR 1.09 Sodium 140 Potassium 3.7 Chloride 104 Carbon Dioxide 29 Anion Gap 7 L BUN 17.1 Creatinine 0.9 Est GFR (CKD-EPI)AfAm 73.52 Est GFR (CKD-EPI)NonAf 63.43 Random Glucose 117 H Calcium 9.1 Phosphorus 3.8 Magnesium 2.0 Total Bilirubin 0.4 AST 23 ALT 27 Alkaline Phosphatase 54 Creatine Kinase 160 Creatine Kinase Index No Result Required. CK-MB (CK-2) < 1.0 Troponin I < 0.02 Total Protein 7.2 Albumin 3.9 Triglycerides 66 Cholesterol 188 Total LDL Cholesterol 96 HDL Cholesterol 61 H TSH 0.[address] was negative for acute pathologies CT of the cervical spine shows multi-level degenerative disc and facet joint changes. moderate to marked c5-c6 and moderate c4-c5 or canal stenosis. multi- level bilateral foraminal stenoses are seen. no acute pathologies noted or fractures or sublaxations. CXR negative for acute pathologies. Patient was re-assessed. She was found to have no pain in the neck and her numbness and tingling resolved Will have patient follow with neurosurgery Patient agreed to the plan and will be discharged Discharge - Discharge Information Problems reviewed: Yes Clinical Impression/Diagnosis: Cervical radiculopathy Disposition: HOME - Admission No - Follow up/Referral Referrals: [facility] [place] [facility] at [place] [Provider Group] Max Jennings MD, FAASHARON [Staff Physician] - - Patient Discharge Instructions Patient Printed Discharge Instructions: DI for Cervical Radiculopathy, DI for Musculoskeletal Pain Additional Instructions: You were seen in the emergency department for your neck pain and back pain. Your imaging was negative for acute pathologies. 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 Please follow up with the neurosurgeon that was referred to you within 1 week after discharge for follow up care and management. Please return to the emergency department if you have worsening symptoms or new concerning symptoms. Thank you. Please use tylenol for pain management as directed on the label - Post Discharge Activity
--- NOTE | 2019-11-29 08:26 | PDOC ---
Attending Attestation - Resident Resident Name: Mani Lopez - ED Attending Attestation I have performed the following: I have examined & evaluated the patient, The case was reviewed & discussed with the resident, I agree w/resident's findings & plan, Exceptions are as noted - HPI HPI: 12/01/19 16:37 74 y/o female with past medical history of chronic pancreatitis, pancreatic cyst, dysplipidemia, HTN, TIA, vertigo, and GERD presents to the emergency department with left hand numbness and tingling with associative right neck pain with right upper back pain. Symptoms are mild to moderate persistent constant they are chronic in nature she has had these symptoms in the past - Physicial Exam PE: 11/29/19 10:56 Vitals: Triage Vital signs reviewed General Appearance: No acute distress, well nourished well developed, Head: Atraumatic, Neck: Supple; no Nucal rigidity Chest Wall: Nontender Cardiac: Regular rate and rhythym, no murmurs, no rubs, no gallops, Lungs: Clear to auscultation bilateral, good air movement bilaterally, Abdomen: Soft, non distended, normal bowel sounds, non tender to palpation Extremities: Full range of motion to all extremities, no cyanosis, clubbing, or edema Musculoskeletal: Reproducible paraspinal neck pain and back pain. Skin: Warm and dry, no rashes or lesions, no rash, no petechiae Psych: Normal mood, normal affect - Medical Decision Making 11/29/19 11:01 Reproducible neck and back pain. Not exertional. EKG demonstrates normal sinus rhythm no ST elevations Interpreted by me Patient feels better after IV Tylenol We will recommend neurosurgical follow-up this is likely radicular pain secondary to discogenic disease Findings, need for follow-up and strict return instructions discussed with patient. Discharge - Discharge Information Problems reviewed: Yes Clinical Impression/Diagnosis: Cervical radiculopathy Disposition: HOME - Follow up/Referral Referrals: [facility] [place] [facility] at [place] [Provider Group] Max Jennings MD, FAANS [Staff Physician] - - Patient Discharge Instructions Patient Printed Discharge Instructions: DI for Cervical Radiculopathy, DI for Musculoskeletal Pain Additional Instructions: You were seen in the emergency department for your neck pain and back pain. Your imaging was negative for acute pathologies. 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 Please follow up with the neurosurgeon that was referred to you within 1 week after discharge for follow up care and management. Please return to the emergency department if you have worsening symptoms or new concerning symptoms. Thank you. Please use tylenol for pain management as directed on the label - Post Discharge Activity
[2019-11-29] MEDS ORDERED: ACETAMINOPHEN 1000 MG/100 ML VIAL (NON FORMULARY) IVPB ONE (08:36)
[2019-11-29] MEDS ORDERED: LIDOCAINE 5% TOPICAL PATCH TP ONE (08:36)
[2019-11-29] MEDS ORDERED: LIDOCAINE 5% TOPICAL PATCH ONE (08:40)
[2019-11-29] MEDS ORDERED: ACETAMINOPHEN INJECTION 100 ML IVPB ONE (08:40)
[2019-11-29 09:02] LABS: BASO % 0.6 % (0-2.0); EOS % 1.2 % (0-4.5); HEMATOCRIT 39.1 % (32.4-45.2); HEMOGLOBIN 13.2 GM/dL (10.7-15.3); LYMPH % 29.4 % (8-40); MCH 28.6 pg (25.7-33.7); MCHC 33.7 g/dl (32.0-36.0); MEAN CELL VOLUME 84.9 fl (80-96); MONO % 11.4 % (3.8-10.2); NEUT % 57.4 % (42.8-82.8); PLATELET COUNT 212 K/MM3 (134-434); RBC 4.61 M/mm3 (3.60-5.2); RDW 14.8 % (11.6-15.6); WHITE BLOOD COUNT 6.4 K/mm3 (4.0-10.0)
[2019-11-29 09:05] LABS: INR 1.09 (0.83-1.09); PROTHROMBIN TIME (PATIENT) 12.9 SEC (9.7-13.0)
[2019-11-29 09:20] LABS: ALBUMIN 3.9 g/dl (3.4-5.0); ANION GAP 7 MMOL/L (8-16); BLOOD UREA NITROGEN 17.1 mg/dL (7-18); CALCIUM 9.1 mg/dL (8.5-10.1); CHLORIDE 104 mmol/L (98-107); CO2 29 mmol/L (21-32); GLUCOSE,RANDOM 117 mg/dL (74-106); POTASSIUM 3.7 mmol/L (3.5-5.1); SODIUM 140 mmol/L (136-145)
[2019-11-29 09:21] LABS: ALK PHOS 54 U/L (45-117); BILIRUBIN,TOTAL 0.4 mg/dL (0.2-1); CREATININE 0.9 mg/dL (0.55-1.3); SGOT/AST 23 U/L (15-37); SGPT/ALT 27 U/L (13-61); TOT PROT 7.2 g/dl (6.4-8.2)
--- NOTE | 2019-11-29 12:50 | EKG ---
Test Reason : Blood Pressure : / mmHG Vent. Rate : 072 BPM Atrial Rate : 072 BPM P-R Int : 152 ms QRS Dur : 080 ms QT Int : 418 ms P-R-T Axes : 068 -49 065 degrees QTc Int : 457 ms NORMAL SINUS RHYTHM LEFT AXIS DEVIATION NONSPECIFIC ST AND T WAVE ABNORMALITY ABNORMAL ECG WHEN COMPARED WITH ECG OF 04-JUL-2019 10:36, NONSPECIFIC T WAVE ABNORMALITY NOW EVIDENT IN INFERIOR LEADS QT HAS LENGTHENED Confirmed by MD MASSIEL, SANDIE ([id number]) on 11/29/2019 12:50:27 PM Referred By: Confirmed By:SANDIE RANKIN MD
[2019-11-29 15:14] LABS: CHOLESTEROL 188 mg/dL (50-200); HDL CHOLESTEROL 61 mg/dL (40-60); LDL CHOLESTEROL (ONLY SJRH) 96 mg/dL (5-100); PHOSPHOROUS 3.8 mg/dL (2.5-4.9); TRIGLYCERIDES 66 mg/dL (0-150)
[2019-11-29] MEDS ORDERED: LIDOCAINE PATCH REMOVAL MC SCH (22:00)
== END 2019-11-29 11:12 | disposition home or self-care (01) ==
LOC: JER 07:49
PROC: 3E033GC Introduction of Other Therapeutic Substance into Peripheral Vein, Percutaneous Approach (ICD-10-PCS; principal; 2019-11-29)
DX: M54.12 Radiculopathy, cervical region (principal)
CPT/HCPCS: 36415; 70450-TC; 71045-TC-FY; 72125-TC; 80053; 80061; 82550; 82553; 83721; 83735; 84100; 84443; 84484; 85025; 85610; 93005; 93010; 96374; 99285-25; J0131; J3535

== ENCOUNTER 2020-01-27 09:10 | Emergency (ER) | payer OTHER ==
[2020-01-27 09:16] VITALS: BMI 29.2
--- NOTE | 2020-01-27 09:31 | PDOC ---
History of Present Illness - General Chief Complaint: Pain Stated Complaint: LF SIDED BODY PAIN Time Seen by Provider: 01/27/20 09:20 - History of Present Illness Initial Comments: Bess Shah is a 74 y/o female with PMH significant for chronic pancreatitis, pancreatic cyst, HLD, HTN, TIA, borderline DM, arthritis, GERD, presenting today with left lower chest pain that started this morning. Reports that the pain is stabbing in nature without any radiation. Pain is non reproducible and non pleuritic. No shortness of breath. Non exertional. Also reports left lower extremity pain that has been going on for the past two weeks. Reports that the pain is worse when ambulating. No back pain. No fever/chills. No abd pain. No dysuria/diarrhea. SocHx: never smoker, no recent travel Past History - Medical History Allergies/Adverse Reactions: Allergies Allergy/AdvReac Type Severity Reaction Status Date / Time peanut Allergy Verified 01/27/20 09:16 lactose AdvReac Verified 01/27/20 09:16 Home Medications: Ambulatory Orders Hydrochlorothiazide [Hctz -] 25 mg PO DAILY 11/30/18 Brimonidine Tartrate [Alphagan P 0.1% -] 1 drop OU ASDIR 07/04/19 Acetaminophen [Tylenol .Regular Strength -] 650 mg PO Q6H PRN tablet 07/06/19 Aspirin Coated [Ecotrin -] 81 mg PO DAILY tablet.ec 07/06/19 Latanoprost 0.005% Eye Drops [Xalatan 0.005% Eye Drops -] 1 drop OU HS drops 07/06/19 Timolol 0.5% [Timoptic 0.5%] 1 drop OU BID drops 07/06/19 Lovastatin 40 mg PO HS 11/29/19 Anemia: No Asthma: No Cancer: No Cardiac Disorders: Yes CVA: No COPD: No CHF: No DVT: No Dementia: No Diabetes: No GI Disorders: Yes Disorders: No HTN: Yes Hypercholesterolemia: Yes Liver Disease: No Seizures: Yes Thyroid Disease: Yes - Surgical History Abdominal Surgery: No Appendectomy: No Cardiac Surgery: No Cholecystectomy: No Lung Surgery: No Neurologic Surgery: No Orthopedic Surgery: No - Immunization History Immunization Up to Date: Yes - Psycho-Social/Smoking History Smoking Status: No Smoking History: Never smoked Have you smoked in the past 12 months: No Number of Cigarettes Smoked Daily: 0 Information on smoking cessation initiated: No - Substance Abuse Hx (Audit-C & DAST Scrn) How often the patient has a drink containing alcohol: Never Score: In Men: 4 or > Positive; In Women: 3 or > Positive: 0 Screen Result (Pos requires Nsg. Audit-10AR): Negative In the last yr the pt used illegal drug/Rx for NonMed reason: No Score: Yes response is considered Positive: 0 Screen Result (Positive result requires Nsg. DAST-10): Negative Review of Systems - Review of Systems Comments:: GENERAL/CONSTITUTIONAL: No fever or chills. No weakness._ HEAD, EYES, EARS, NOSE AND THROAT: No change in vision. No change in hearing. No sore throat._ CARDIOVASCULAR: Reports chest pain. No shortness of breath_ RESPIRATORY: Denies cough, hemoptysis_ GASTROINTESTINAL: No nausea, vomiting, diarrhea or constipation._ GENITOURINARY: No dysuria, frequency, or change in urination._ MUSCULOSKELETAL: Reports leg left and knee pain. No neck or back pain._ SKIN: No rash_ NEUROLOGIC: No headache, vertigo, loss of consciousness, or change in strength/sensation._ ENDOCRINE: No increased thirst. No abnormal weight change_ HEMATOLOGIC/LYMPHATIC: No anemia, easy bleeding, or history of blood clots._ ALLERGIC/IMMUNOLOGIC: No hives or skin allergy._ *Physical Exam - Vital Signs Last Vital Signs Temp Pulse Resp BP Pulse Ox 98.9 F 81 18 133/81 99 01/27/20 09:13 01/27/20 09:13 01/27/20 09:13 01/27/20 09:13 01/27/20 09:13 - Physical Exam GENERAL: Awake, alert, and oriented to person/place/time, in no acute distress_ HEAD: No signs of trauma, normocephalic, atraumatic _ EYES: PERRLA, EOMI, sclera anicteric, conjunctiva clear_ ENT: Hearing grossly normal, nares patent, oropharynx clear without exudates. No uvular deviation. Moist mucosa_ NECK: Normal ROM, supple, no lymphadenopathy, JVD, or masses_ CHEST: No TTP. No rash or bruising. LUNGS: No distress, speaks in full sentences, clear to auscultation bilaterally _ HEART: Regular rate and rhythm, normal S1 and S2, no murmurs appreciated, peripheral pulses normal and equal bilaterally._ ABDOMEN: Soft, nontender, normoactive bowel sounds. No guarding, no rebound. No masses_ EXTREMITIES: Normal inspection, positive left straight leg test, TTP left leg and left lower leg. 1+ pitting edema. No clubbing or cyanosis_ NEUROLOGICAL: Cranial nerves II through XII grossly intact. Normal speech, normal gait, no focal sensorimotor deficits _ SKIN: Warm, Dry, normal turgor, no rashes or lesions noted_ Heart Score/ECG Review - History History: Slightly suspicious - Electrocardiogram EKG: Normal - Age Age: >/= 65 - Risk Factors Risk Factors Heart Score: Yes Hx Hypercholesterolemia, Yes Hx Hypertension Based on the list above the patient has:: 1-2 risk factors - Troponin Troponin: </= normal limit - Score Heart Score - Total: 3 ED Treatment Course - LABORATORY CBC & Chemistry Diagram: 01/27/20 09:57 01/27/20 09:57 - RADIOLOGY Radiology Studies Ordered: Category Date Time Status CHEST X-RAY PORTABLE* [RAD] Stat Radiology 01/27/20 09:29 Ordered Medical Decision Making - Medical Decision Making 01/27/20 09:32 74F hx of HTN HLD TIA GERD chronic pancreatitis presenting today with left lower chest pain and bilateral leg pain. Reports that the leg pain is chronic and she has a hx of arthritis. HEART score 3. -labs -trop -ekg -cxr -lipase -GI cocktail -tylenol 01/27/20 10:38 EKG shows 65bpm, NSR, left axis, QTc 405, no ST elevation/depression. CXR negative for acute chest pathology. 01/27/20 10:39 Labs reviewed. Will obtain second trop. Laboratory Last Values WBC 6.2 K/mm3 (4.0-10.0) 01/27/20 09:57 RBC 4.50 M/mm3 (3.60-5.2) 01/27/20 09:57 Hgb 12.8 GM/dL (10.7-15.3) 01/27/20 09:57 Hct 38.8 % (32.4-45.2) 01/27/20 09:57 MCV 86.3 fl (80-96) 01/27/20 09:57 MCH 28.5 pg (25.7-33.7) 01/27/20 09:57 MCHC 33.0 g/dl (32.0-36.0) 01/27/20 09:57 RDW 16.3 % (11.6-15.6) H 01/27/20 09:57 Plt Count 202 K/MM3 (134-434) 01/27/20 09:57 MPV 8.5 fl (7.5-11.1) 01/27/20 09:57 Absolute Neuts (auto) 3.5 K/mm3 (1.5-8.0) 01/27/20 09:57 Neutrophils % 56.5 % (42.8-82.8) 01/27/20 09:57 Lymphocytes % 30.2 % (8-40) 01/27/20 09:57 Monocytes % 11.2 % (3.8-10.2) H 01/27/20 09:57 Eosinophils % 1.6 % (0-4.5) 01/27/20 09:57 Basophils % 0.5 % (0-2.0) 01/27/20 09:57 Nucleated RBC % 0 % (0-0) 01/27/20 09:57 PT with INR 12.50 SEC (9.7-13.0) 01/27/20 09:57 INR 1.06 (0.83-1.09) 01/27/20 09:57 PTT (Actin FS) 31.7 SECONDS (25.2-36.5) 01/27/20 09:57 Sodium 140 mmol/L (136-145) 01/27/20 09:57 Potassium 3.8 mmol/L (3.5-5.1) 01/27/20 09:57 Chloride 104 mmol/L (98-107) 01/27/20 09:57 Carbon Dioxide 27 mmol/L (21-32) 01/27/20 09:57 Anion Gap 8 MMOL/L (8-16) 01/27/20 09:57 BUN 16.8 mg/dL (7-18) 01/27/20 09:57 Creatinine 0.9 mg/dL (0.55-1.3) 01/27/20 09:57 Est GFR (CKD-EPI)AfAm 73.52 01/27/20 09:57 Est GFR (CKD-EPI)NonAf 63.43 01/27/20 09:57 Random Glucose 136 mg/dL (74-106) H 01/27/20 09:57 Calcium 9.0 mg/dL (8.5-10.1) 01/27/20 09:57 Total Bilirubin 0.4 mg/dL (0.2-1) 01/27/20 09:57 AST 20 U/L (15-37) 01/27/20 09:57 ALT 24 U/L (13-61) 01/27/20 09:57 Alkaline Phosphatase 56 U/L (45-117) 01/27/20 09:57 Creatine Kinase 135 U/L (26-192) 01/27/20 09:57 Troponin I < 0.02 ng/ml (0.00-0.05) 01/27/20 09:57 Total Protein 7.3 g/dl (6.4-8.2) 01/27/20 09:57 Albumin 3.6 g/dl (3.4-5.0) 01/27/20 09:57 Lipase 110 U/L (73-393) 01/27/20 09:57 01/27/20 16:13 Labs reviewed. Laboratory Last Values WBC 6.2 K/mm3 (4.0-10.0) 01/27/20 09:57 Corrected WBC (auto) Sow [employer] Technician 01/27/20 09:57 RBC 4.50 M/mm3 (3.60-5.2) 01/27/20 09:57 Hgb 12.8 GM/dL (10.7-15.3) 01/27/20 09:57 Hct 38.8 % (32.4-45.2) 01/27/20 09:57 MCV 86.3 fl (80-96) 01/27/20 09:57 MCH 28.5 pg (25.7-33.7) 01/27/20 09:57 MCHC 33.0 g/dl (32.0-36.0) 01/27/20 09:57 RDW 16.3 % (11.6-15.6) H 01/27/20 09:57 Plt Count 202 K/MM3 (134-434) 01/27/20 09:57 MPV 8.5 fl (7.5-11.1) 01/27/20 09:57 Absolute Neuts (auto) 3.5 K/mm3 (1.5-8.0) 01/27/20 09:57 Neutrophils % 56.5 % (42.8-82.8) 01/27/20 09:57 Lymphocytes % 30.2 % (8-40) 01/27/20 09:57 Monocytes % 11.2 % (3.8-10.2) H 01/27/20 09:57 Eosinophils % 1.6 % (0-4.5) 01/27/20 09:57 Basophils % 0.5 % (0-2.0) 01/27/20 09:57 Nucleated RBC % 0 % (0-0) 01/27/20 09:57 Platelet Estimate [employer]ow [employer] Technician 01/27/20 09:57 Platelet Comment [employer]ow [employer] Technician 01/27/20 09:57 PT with INR 12.50 SEC (9.7-13.0) 01/27/20 09:57 INR 1.06 (0.83-1.09) 01/27/20 09:57 PTT (Actin FS) 31.7 SECONDS (25.2-36.5) 01/27/20 09:57 Sodium 140 mmol/L (136-145) 01/27/20 09:57 Potassium 3.8 mmol/L (3.5-5.1) 01/27/20 09:57 Chloride 104 mmol/L (98-107) 01/27/20 09:57 Carbon Dioxide 27 mmol/L (21-32) 01/27/20 09:57 Anion Gap 8 MMOL/L (8-16) 01/27/20 09:57 BUN 16.8 mg/dL (7-18) 01/27/20 09:57 Creatinine 0.9 mg/dL (0.55-1.3) 01/27/20 09:57 Est GFR (CKD-EPI)AfAm 73.52 01/27/20 09:57 Est GFR (CKD-EPI)NonAf 63.43 01/27/20 09:57 Random Glucose 136 mg/dL (74-106) H 01/27/20 09:57 Calcium 9.0 mg/dL (8.5-10.1) 01/27/20 09:57 Total Bilirubin 0.4 mg/dL (0.2-1) 01/27/20 09:57 AST 20 U/L (15-37) 01/27/20 09:57 ALT 24 U/L (13-61) 01/27/20 09:57 Alkaline Phosphatase 56 U/L (45-117) 01/27/20 09:57 Creatine Kinase 135 U/L (26-192) 01/27/20 09:57 Troponin I < 0.02 ng/ml (0.00-0.05) 01/27/20 13:07 B-Natriuretic Peptide 39.7 pg/ml (5-125) 01/27/20 13:07 Total Protein 7.3 g/dl (6.4-8.2) 01/27/20 09:57 Albumin 3.6 g/dl (3.4-5.0) 01/27/20 09:57 Lipase 110 U/L (73-393) 01/27/20 09:57 US negative for DVT in bilateral lower extremities. 01/27/20 16:15 Pt reassessed. Plan to d/c home with PCP and cardiology f/u. All questions answered. Return precautions given. Pt verbalized understanding and agreement with plan. Discharge - Discharge Information Problems reviewed: Yes Clinical Impression/Diagnosis: Atypical chest pain Condition: Stable Disposition: HOME - Admission No - Follow up/Referral Referrals: Dk Cage MD, MD [Primary Care Provider] - Ricardo Florentino MD [Staff Physician] - Kendall Hayes MD [Staff Physician] - - Patient Discharge Instructions Patient Printed Discharge Instructions: DI for Atypical Chest Pain Additional Instructions: Please make a follow up appointment with your primary care doctor and a professor of sport management (referral provided here) in the next week. If you experience any new, worsening, or concerning symptoms, including worsening shortness of breath, chest pain, dizziness, nausea/vomiting, sweating, or any other concerns, please return to the emergency department. - Post Discharge Activity
[2020-01-27] MEDS ORDERED: FAMOTIDINE 20 MG/50 ML IVPB 20 MG/50 ML MG IVPB ONE ×2 (09:32→10:13)
[2020-01-27] MEDS ORDERED: MAG HYDROX/AL HYDROX/SIMETH -MYLANTA- ORAL SUSPENSION PO ONE (09:32)
[2020-01-27] MEDS ORDERED: LIDOCAINE VISCOUS 2% ORAL/TOP 20 ML UNIT-DOSE CUP MM ONE (09:32)
[2020-01-27] MEDS ORDERED: ACETAMINOPHEN 1000 MG/100 ML VIAL (NON FORMULARY) IVPB ONE (09:32)
[2020-01-27 10:08] LABS: BASO % 0.5 % (0-2.0); EOS % 1.6 % (0-4.5); HEMATOCRIT 38.8 % (32.4-45.2); HEMOGLOBIN 12.8 GM/dL (10.7-15.3); LYMPH % 30.2 % (8-40); MCH 28.5 pg (25.7-33.7); MEAN CELL VOLUME 86.3 fl (80-96); MEAN PLT VOLUME 8.5 fl (7.5-11.1); MONO % 11.2 % (3.8-10.2); NEUT % 56.5 % (42.8-82.8); PLATELET COUNT 202 K/MM3 (134-434); RDW 16.3 % (11.6-15.6); WHITE BLOOD COUNT 6.2 K/mm3 (4.0-10.0)
[2020-01-27] MEDS ORDERED: LIDOCAINE HCL 2% (20ML MULTI-DOSE VIAL) ONE (10:10)
[2020-01-27] MEDS ORDERED: FAMOTIDINE 20 MG TABLET ONE (10:10)
[2020-01-27] MEDS ORDERED: ACETAMINOPHEN INJECTION 100 ML IVPB ONE (10:11)
[2020-01-27] MEDS ORDERED: MAG HYDROX/AL HYDROX/SIMETH 30 ML UNIT-DOSE CUP ONE (10:11)
[2020-01-27] MEDS ORDERED: LIDOCAINE VISCOUS 2% ORAL/TOP 20 ML UNIT-DOSE CUP ONE (10:12)
[2020-01-27 10:14] LABS: INR 1.06 (0.83-1.09); PROTHROMBIN TIME (PATIENT) 12.5 SEC (9.7-13.0)
[2020-01-27 10:17] LABS: ACTIVATED PTT 31.7 SECONDS (25.2-36.5)
[2020-01-27 10:34] LABS: ALBUMIN 3.6 g/dl (3.4-5.0); ALK PHOS 56 U/L (45-117); ANION GAP 8 MMOL/L (8-16); BILIRUBIN,TOTAL 0.4 mg/dL (0.2-1); BLOOD UREA NITROGEN 16.8 mg/dL (7-18); CHLORIDE 104 mmol/L (98-107); CO2 27 mmol/L (21-32); CREATININE 0.9 mg/dL (0.55-1.3); GLUCOSE,RANDOM 136 mg/dL (74-106); POTASSIUM 3.8 mmol/L (3.5-5.1); SGOT/AST 20 U/L (15-37); SGPT/ALT 24 U/L (13-61); SODIUM 140 mmol/L (136-145); TOT PROT 7.3 g/dl (6.4-8.2)
--- NOTE | 2020-01-27 10:39 | PDOC ---
Attending Attestation - Resident Resident Name: Eugene Harding - ED Attending Attestation I have performed the following: I have examined & evaluated the patient, The case was reviewed & discussed with the resident, I agree w/resident's findings & plan, Exceptions are as noted - HPI HPI: 74 yo F history chronic pancreatitis, pancreatic cyst, HL, HTN, TIA, borderline diabetic, GERD presents with L-sided cp that started this morning, woke her from sleep approximately at 5am. Pain was sharp, nonradiating, under the L breast. Denies any associated SOB, N/V, diaphoresis. No prior similar symptoms. She has had BLE pain for the past few months, described as involving her shins, knees, and anterior thighs. - Physicial Exam PE: GENERAL: Awake, alert, and fully oriented, in no acute distress HEAD: No signs of trauma EYES: PERRLA, EOMI, sclera anicteric, conjunctiva clear ENT: Auricles normal inspection, hearing grossly normal, nares patent, oropharynx clear without exudates. Moist mucosa NECK: Normal ROM, supple, no lymphadenopathy, JVD, or masses LUNGS: Breath sounds equal, clear to auscultation bilaterally. No wheezes, and no crackles HEART: Regular rate and rhythm, normal S1 and S2, no murmurs, rubs or gallops ABDOMEN: Soft, nontender, normoactive bowel sounds. No guarding, no rebound. No masses EXTREMITIES: Normal range of motion, no edema. No clubbing or cyanosis. No cords, erythema. +Tenderness to B/L shins and thighs NEUROLOGICAL: Cranial nerves II through XII grossly intact. Normal speech, normal gait. Motor and sensation intact SKIN: Warm, dry, normal turgor, no rashes or lesions noted. - Medical Decision Making 01/27/20 11:28 Pt with atypical cp, associated with BLE pain. Normal lower extremity exam. 01/27/20 17:00 Based on the swelling and pain worse on the L, DVT study was obtained, negative. Serial trops negative. As her symptoms are atypical, will DC home with plan for outpatient f/u. Discharge - Discharge Information Problems reviewed: Yes Clinical Impression/Diagnosis: Atypical chest pain Condition: Stable Disposition: HOME - Follow up/Referral Referrals: Dk Cage MD, MD [Primary Care Provider] - Ricardo Florentino MD [Staff Physician] - Kendall Hayes MD [Staff Physician] - - Patient Discharge Instructions Patient Printed Discharge Instructions: DI for Atypical Chest Pain Additional Instructions: Please make a follow up appointment with your primary care doctor and a pilates instructor (referral provided here) in the next week. If you experience any new, worsening, or concerning symptoms, including worsening shortness of breath, chest pain, dizziness, nausea/vomiting, sweating, or any other concerns, please return to the emergency department. - Post Discharge Activity
[2020-01-27 13:06] LABS: N-TERMINAL BNP 33.1 pg/ml (5-125)
[2020-01-27 14:01] VITALS: TEMP 97.4
[2020-01-27 14:12] LABS: N-TERMINAL BNP 39.7 pg/ml (5-125)
--- NOTE | 2020-01-27 16:10 | EKG ---
Test Reason : Blood Pressure : / mmHG Vent. Rate : 065 BPM Atrial Rate : 065 BPM P-R Int : 160 ms QRS Dur : 082 ms QT Int : 390 ms P-R-T Axes : -18 -44 054 degrees QTc Int : 405 ms POOR DATA QUALITY, INTERPRETATION MAY BE ADVERSELY AFFECTED NORMAL SINUS RHYTHM LEFT AXIS DEVIATION POSSIBLE ANTERIOR INFARCT , AGE UNDETERMINED ABNORMAL ECG Confirmed by MD TAMEKA, MARCUS ([id number]) on 01/27/2020 4:09:33 PM Referred By: Confirmed By:MARCUS ENGLISH MD
[2020-01-27 16:50] VITALS: BP 135/69; PULSE 66
== END 2020-01-27 16:48 | disposition home or self-care (01) ==
LOC: JER 09:10
PROC: 3E033GC Introduction of Other Therapeutic Substance into Peripheral Vein, Percutaneous Approach (ICD-10-PCS; principal; 2020-01-27)
DX: R07.89 Other chest pain (principal)
CPT/HCPCS: 36415; 71045-TC-FY; 80053; 82550; 83690; 83880; 84484; 85025; 85610; 85730; 93005; 93010; 93970-TC; 96365; 96375; 99285-25; J0131

== ENCOUNTER 2020-04-01 04:40 | Day surgery (SDC) | payer OTHER ==
[2020-03-31 14:06] VITALS: BMI 34.3
[~2020-04-01 04:40] MED LIST: BSS (NA/CA/MG/K) BALANCED SALT SOLUTION OPHTH SOLN 15 ML BOTTLE OS ONE; CHONDROITIN SU A/HYALUR SOD 1 KIT IO ONE; EPINEPHrine/PF 1 MG/1 ML (1:1,000) AMPULE SQ ONE; LIDOCAINE HCL 1% PRESERVATIVE FREE - 30ML VIAL IO ONE; POVIDONE-IODINE 5% OPHTHALMIC PREP 30 ML SOLUTION OS ONE; TETRACAINE 0.5% OPHTH SOLN 2 ML BOTTLE OS ONE
--- OUTSIDE RECORDS SUMMARY | 2020-04-01 04:45 | XMS ---
:1945 [facility] Team Providers Name Role Phone KAILYN ECHOLS Unavailable Unavailable RUTH PEREZ Unavailable Unavailable Sharif Pedroza MD Unavailable Unavailable Re-disclosure Warning The records that you are about to access may contain information from federally- assisted alcohol or drug abuse programs. If such information is present, then the following federally mandated warning applies: This information has been disclosed to you from records protected by federal confidentiality rules (42 CFR part 2). The federal rules prohibit you from making any further disclosure of this information unless further disclosure is expressly permitted by the written consent of the person to whom it pertains or as otherwise permitted by 42 CFR part 2. A general authorization for the release of medical or other information is NOT sufficient for this purpose. The Federal rules restrict any use of the information to criminally investigate or prosecute any alcohol or drug abuse patient.The records that you are about to access may contain highly sensitive health information, the redisclosure of which is protected by Article 27-F of the [facility] Public Health law. If you continue you may haveaccess to information: Regarding HIV / AIDS; Provided by facilities licensed or operated by the [facility] Office of Mental Health; or Provided by the [facility] Office for People With Developmental Disabilities. If such information is present, then the following [facility] mandated warning applies: This information has been disclosed to you from confidential records which are protected by state law. State law prohibits you from making any further disclosure of this information without the specific written consent of the person to whom it pertains, or as otherwise permitted by law. Any unauthorized further disclosure in violation of state law may result in a fine or senior care sentence or both. A general authorization for the release of medical or other information is NOT sufficient authorization for further disclosure. 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 Observation Data S ource(s) Description Advance No completed [place] [facility] Advance No completed [place] [facility] Advance No completed [place] [facility] Allergies and Adverse Reactions Type Description Substance Reaction Status Data Source(s ) Food allergy peanut peanut FACE SWELLING-I [facility] Hospital Encounters Encounter Providers Location Date Indications Data Source(s ) Outpatient Attender: RUTH Ken 11/20/2019 [facility] MIRANDAAdmitter: 12:23:00 PM [facility] RUTH MIRANDAReferrer: RUTH MIRANDA Outpatient Attender: ONESIMO 10/25/2019 Z03.818 [facility] AILEENdmitter: 01:55:00 PM Health C are ONESIMO [employer] Z03.818 Emergency Attender: Sharif 10/23/2019 10:18:00 CHEST PAIN [place] Alejandrina Pedroza MD AM EDT - 10/23/2019 Hospi tho 03:09:00 PM EDT CHEST PAIN [place] Patient discharged. Outpatient Attender: RUTH Ken 12/12/2018 09:18:00 AM [facility] MIRANDAAdmitter: RUTH [facility] RUTHReferrer: RUTH MIRANDA Medications Medication Brand Start Product Dose Route Administrative Pharmacy [facility] Indications Reaction Description Data Name Date Form Instructions Instructions Source(s) No known complet White medications ed [place] [facility] Insurance Providers Payer name Policy type Policy ID Covered Covered libertarian's Policy P franc[place] / Coverage libertarian ID relationship to [place] Inf ormation type [place] AETNA MEBMSYVY SP [id number] MEDICARE HEALTH [id number] SP [id number] SOLUTIONS CAL MEDICARE [id number] SP [id number] AETNA MEBMSYVY SP [id number] MEDICARE AETNA USHC O [id number] AETNA MCR MEBMSYVY PT MEBMSYVY HEALTH [employer] [facility] [id number] SP [id number] CARE OPTIONS Problems, Conditions, and Diagnoses Code Display Name Description Problem Type Effective Data Sour ce(s) Dates Z12.31 Encounter for ENCNTR SCREEN Diagnosis 11/20/2019 [facility] screening MAMMOGRAM FOR 12:23:00 PM Medical Ce nter mammogram for MALIGNANT EDT malignant neoplasm NEOPLASM OF of breast BREAST Z03.818 Encounter for ENCNTR FOR OBS Diagnosis 10/25/2019 [facility] ster observation for FOR SUSP EXPSR 01:55:00 PM [facility] suspected exposure TO [employer] EDT [employer] to other AGENTS RULED OUT biological agents ruled out I10 Essential I10 Diagnosis 10/23/2019 [place] (primary) 11:16:00 AM Hospital hypertension EDT R00.2 Palpitations R00.2 Diagnosis 10/23/2019 [place] 11:16:00 AM Hospital EDT Surgeries/Procedures Procedure Description Date Indications Data Source(s) Plain chest X-ray (procedure) 10/23/2019 [place] 12:00:00 AM Hospital EDT Electrocardiographic procedure 10/23/2019 [place] (procedure) 12:00:00 AM Hospital EDT Results ID Date Data Source [id number] 03/27/2020 09:41:00 AM EDT [facility] Name Value Range Interpretation Description Data Sup porting Code Source(s) Document(s ) SARS [facility] coronavirus 2 RNA This lab was ordered by [facility] and reported by [facility]. ID Date Data Source [id number] 12/18/2019 08:47:00 AM EDT [facility] Name Value Range Interpretation Code Description Data Cassandra rce(s) Supporting Document(s ) SARS-CoV-2 [facility] Ql JOSE ANTONIO+probe This lab was ordered by [facility] nd reported by [facility]. ID Date Data Source [id number] 10/25/2019 12:00:00 AM EDT [facility] Name Value Range Interpretation Code Description Data Cassandra rce(s) Supporting Document(s ) 2019-nCoV [place] RNA XXX JOSE ANTONIO+probe- Imp This lab was ordered by [facility] and reported by [employer]. ID Date Data Source [id number] 10/23[facility]2019 [facility]:24[facility] PERFORMED BY [employer] ULTRA SENSITIVE CENTAUR CHEMILUMINESCENCE METHOD. Name Value Range Interpretation Description Data Sup porting Code Source(s) Document(s ) Troponin 0.01 [place] I.cardiac ng/mL Hospital [Mass/volume ] in Serum or Plasma ID Date Data Source [id number] 10/23/2019 10:47:[facility] Name Value Range Interpretation Description Data Sup porting Code Source(s) Document(s ) Leukocytes 6.5 [place] [#/volume] in 10*3/uL Hospital Blood by Automated count ID Date Data Source [id number] 10/23/2019 10:47:00 [facility] Name Value Range Interpretation Description Data Sup porting Code Source(s) Document(s ) Erythrocytes 5.23 [place] [#/volume] in 10*6/uL Hospital Blood by Automated count ID Date Data Source [id number] 10/23/2019 10:47:00 AM [facility] Name Value Range Interpretation Description Data Sup porting Code Source(s) Document(s ) Hemoglobin 14.5 g/dL [place] [Mass/volume] Hospital in Blood ID Date Data Source [id number] 10/23/2019 10:47:00 AM EDT [facility] Value Range Interpretation Description Data Sup porting Code Source(s) Document(s ) Hematocrit 40.9 % [place] [Volume Hospital Fraction] of Blood by Automated count ID Date Data Source [id number] 10/23[facility] Interpretation Description Data Sup porting Code Source(s) Document(s ) Erythrocyte 78.2 fL [facility] corpuscular volume [Entitic volume] by Automated count ID Date Data Source [id number] 10/23/2019 10:47:[facility] Value Range Interpretation Description Data Sup porting Code Source(s) Document(s ) Erythrocyte 27.7 pg [facility] corpuscular hemoglobin [Entitic mass] by Automated count ID Date Data Source [id number] 10/23/2019 10:47:00 AM [facility] Value Range Interpretation Description Data Sup porting Code Source(s) Document(s ) Erythrocyte mean 35.5 [place] corpuscular g/dL Hospital hemoglobin concentration [Mass/volume] by Automated count ID Date Data Source [id number] 10/23/2019 10:47:00 AM EDT [facility] Value Range Interpretation Description Data Sup porting Code Source(s) Document(s ) Erythrocyte 14.2 % [place] distribution Hospital width [Ratio] by Automated count ID Date Data Source [id number] 10/23/2019 10:47:[facility] Value Range Interpretation Description Data Sup porting Code Source(s) Document(s ) Platelets 215 [place] [#/volume] in 10*3/uL Hospital Blood by Automated count ID Date Data Source [id number] 10/23/2019 10:47:00 AM [facility] Name Value Range Interpretation Description Data Sup porting Code Source(s) Document(s ) Platelet mean 9.[address] [facility] [Entitic volume] in Blood by Automated count ID Date Data Source [id number] 10/23/2019 10:47:00 AM [facility] Name Value Range Interpretation Description Data Sup porting Code Source(s) Document(s ) PT panel - 13.3 s [place] Platelet poor [facility] plasma by Coagulation assay ID Date Data Source [id number] 10/23/2019 10:47:00 AM [facility] THERAPEUTIC RANGE FOR STANDARD ORALANTIC OAGULANT THERAPY: 2.0-3.0THERAPEUTIC RANGE FOR HIGH DOSE ORALANTICOAGULANT THERAPY (MECHANICAL HEARTVALVE REPLACEMENT): 2.5-3.5 Name Value Range Interpretation Description Data Sup porting Code Source(s) Document(s ) INR in Platelet 1.2 [facility] plasma by [facility] Coagulation assay ID Date Data Source [id number] 10/23/2019 10:47:00 AM [facility] THERAPEUTIC RANGES:UNFRACTIONATED HEPARI N THERAPY: 60-90 SECONDSARGATROBAN THERAPY: 49-99 SECONDS Name Value Range Interpretation Description Data Sup porting Code Source(s) Document(s ) aPTT in 29.6 s [place] Platelet poor [facility] plasma by Coagulation assay ID Date Data Source [id number] 10/23/2019 10:47:00 AM [facility] Name Value Range Interpretation Description Data Sup porting Code Source(s) Document(s ) Glucose 110 mg/dL [place] [Mass/volume [facility] ] in Serum or Plasma ID Date Data Source [id number] 10/23/2019 10:47:00 AM [facility] Name Value Range Interpretation Description Data Sup porting Code Source(s) Document(s ) Sodium 134 mmol/L [place] [Moles/volu Hospital me] in Serum or Plasma ID Date Data Source [id number] 10/23/2019 10:47:00 AM EDT [facility] Name Value Range Interpretation Description Data Sup porting Code Source(s) Document(s ) Potassium 3.0 [place] [Moles/volume mmol/L Hospital ] in Serum or Plasma ID Date Data Source [id number] 10/23/2019 10:47:00 AM EDT [facility] Name Value Range Interpretation Description Data Sup porting Code Source(s) Document(s ) Chloride 97 mmol/L [place] [Moles/volum Hospital e] in Serum or Plasma ID Date Data Source [id number] 10/23/2019 10:47:00 AM EDT [facility] Name Value Range Interpretation Description Data Sup porting Code Source(s) Document(s ) Carbon 27 mmol/L [place] dioxide, Hospital total [Moles/volu me] in Serum or Plasma ID Date Data Source [id number] 10/23/2019 10:47:00 AM EDT [facility] Value Range Interpretation Code Description Data Cassandra rce(s) Supporting Document(s ) Anion gap in 13 [place] Serum or Hospital Plasma ID Date Data Source [id number] 10/23/2019 10:47:00 AM EDT [facility] Name Value Range Interpretation Description Data Sup porting Code Source(s) Document(s ) Urea 12 mg/dL [place] nitrogen Hospital [Mass/volume ] in Serum or Plasma ID Date Data Source [id number] 10/23/2019 10:47:00 AM EDT [facility] Name Value Range Interpretation Description Data Sup porting Code Source(s) Document(s ) Creatinine 0.7 mg/dL [place] [Mass/volume] Hospital in Serum or Plasma ID Date Data Source [id number] 10/23/2019 10:47:00 AM EDT [facility] Name Value Range Interpretation Code Description Data Cassandra rce(s) Supporting Document(s ) Urea 17.1 [place] nitrogen/Cre Hospital atinine [Mass Ratio] in Serum or Plasma ID Date Data Source [id number] 10/23/2019 10:47:00 AM EDT [facility] Name Value Range Interpretation Description Data Sup porting Code Source(s) Document(s ) Calcium 7.8 mg/dL [place] [Mass/volume Hospital ] in Serum or Plasma ID Date Data Source [id number] 10/23/2019 10:47:00 AM EDT [facility] Name Value Range Interpretation Description Data Sup porting Code Source(s) Document(s ) Protein 6.3 g/dL [place] [Mass/volume Hospital ] in Serum or Plasma ID Date Data Source [id number] 10/23/2019 10:47:00 AM EDT [facility] Name Value Range Interpretation Description Data Sup porting Code Source(s) Document(s ) Albumin 4.0 g/dL [place] [Mass/volume Hospital ] in Serum or Plasma ID Date Data Source [id number] 10/23/2019 10:47:00 AM EDT [facility] Name Value Range Interpretation Code Description Data Cassandra rce(s) Supporting Document(s ) Albumin/Glob 1.7 [place] ulin [Mass Hospital Ratio] in Serum or Plasma ID Date Data Source [id number] 10/23/2019 10:47:[facility] Name Value Range Interpretation Description Data Sup porting Code Source(s) Document(s ) Bilirubin.t 0.5 mg/dL [facility] [Mass/volum e] in Serum or Plasma ID Date Data Source [id number] 10/23/2019 10:47:00 AM EDT [facility] Name Value Range Interpretation Description Data Sup porting Code Source(s) Document(s ) Alkaline 52 U/L [place] phosphatase Hospital [Enzymatic activity/volume ] in Serum or Plasma ID Date Data Source [id number] 10/23/2019 10:47:00 AM EDT [facility] Value Range Interpretation Description Data Sup porting Code Source(s) Document(s ) Alanine 17 U/L [facility] amin[facility] [place] [Enzymatic Hospital activity/volume] in Serum or Plasma ID Date Data Source [id number] 10/23/2019 [facility]:47[facility] Range Interpretation Description Data Sup porting Code Source(s) Document(s ) Aspartate 22 U/L [place] aminotransferase [place] [Enzymatic Hospital activity/volume] in Serum or Plasma ID Date Data Source [id number] 10/23/2019 10:47:00 AM T [facility] Value Range Interpretation Code Description Data Cassandra rce(s) Supporting Document(s ) Lipase 20 U/L [place] [Enzymatic Hospital activity/vo lume] in Serum or Plasma ID Date Data Source [id number] 10/23/2019 10:47:00 AM [facility] Value Range Interpretation Description Data Sup porting Code Source(s) Document(s ) Thyrotropin 0.781 [place] [Units/volume] u[IU]/mL Hospital in Serum or Plasma by Detection limit <= 0.005 mIU/L ID Date Data Source [id number] 10/23/2019 10:47:00 AM [facility] Value Range Interpretation Description Data Sup porting Code Source(s) Document(s ) Thyroxine 1.5 ng/dL [place] (T4) free Hospital [Mass/volume] in Serum or Plasma Procedure Social History Code Duration Value Status Description Data Source(s ) Smoking Unknown if ever completed Unknown if ever Camille Guthrie smoked smoked [facility] Smoking Unknown if ever completed Unknown if ever Susan Marquez smoked smoked Hospital Vital Signs ID Date Data Source UNK Name Value Range Interpretation Code Description Data Source(s) Heart rate 57 /min 57 /min [facility] Respiratory rate 22 /min 22 /min [facility] Systolic blood 160 mm[Hg] 160 mm[Hg] [facility] pressure [facility] Diastolic blood 72 mm[Hg] 72 mm[Hg] [facility] Body temperature 97.9 [degF] 97.9 [degF] [facility] Body temperature 98.0 [degF] 98.0 [degF] [facility] Body temperature 36.05673 36.25244 [facility] Body temperature 36.71065 36.00704 [facility] Body weight 210.43 210.43 [lb_av] [facility] [lb_av] Hospital Body mass index 36.0 kg/m2 36.0 kg/m2 [facility] (BMI) [Ratio] Hospital
[2020-04-01] MEDS ORDERED: TETRACAINE 0.5% OPHTH SOLN 2 ML BOTTLE ONE (06:32)
[2020-04-01] MEDS ORDERED: LIDOCAINE HCL/PF 1% SDV 5ML VIAL ONE (06:32)
[2020-04-01] MEDS ORDERED: EPINEPHrine/PF 1 MG/1 ML (1:1,000) AMPULE ONE ×2 (06:32→09:02)
[2020-04-01] MEDS ORDERED: TOBRAMYCIN/DEXAMETHASONE OPHTH. OINTMENT 1 TUBE ONE (06:32)
[2020-04-01] MEDS ORDERED: POVIDONE-IODINE 5% OPHTHALMIC PREP 30 ML SOLUTION ONE (06:32)
[2020-04-01] MEDS ORDERED: CHONDROITIN SU A/HYALUR SOD 1 KIT ONE (06:36)
[2020-04-01] MEDS ORDERED: ACETAMINOPHEN 325 MG TABLET (FP) PO PRN (07:29)
[2020-04-01] MEDS ORDERED: TROPICAMIDE 1% OPHTH SOLN 15 ML BOTTLE ONE (07:35)
[2020-04-01] MEDS: TOBRAMYCIN/DEXAMETHASONE OPHTH. OINTMENT 1 TUBE OS ONE ×2 (07:45)
[2020-04-01] MEDS: TROPICAMIDE 1% OPHTH SOLN 15 ML BOTTLE OP SCH ×3 (07:45→08:22)
[2020-04-01] MEDS: KETOROLAC TROMETHAMINE 0.5% EYE DROP 1 DROP DROPS OP SCH ×2 (07:45→08:22)
[2020-04-01] MEDS: CIPROFLOXACIN HCL 0.3% OPHTH 2.5ML BOTTLE OP SCH ×2 (08:00→08:21)
[2020-04-01] MEDS: PHENYLEPHRINE 2.5% OPHTH SOLN 15 ML BOTTLE OP SCH ×2 (08:00→08:22)
[2020-04-01] MEDS ORDERED: MIDAZOLAM HCL 2 MG/2 ML SINGLE DOSE VIAL ONE (08:02)
[2020-04-01] MEDS ORDERED: SUCCINYLCHOLINE CHLORIDE 200 MG/10 ML SYRINGE ONE (08:02)
[2020-04-01] MEDS ORDERED: TETRACAINE 0.5% OPHTH SOLN 2 ML BOTTLE OS ONE (08:48)
[2020-04-01] MEDS ORDERED: POVIDONE-IODINE 5% OPHTHALMIC PREP 30 ML SOLUTION OS ONE (08:49)
[2020-04-01] MEDS ORDERED: BSS (NA/CA/MG/K) BALANCED SALT SOLUTION OPHTH SOLN 15 ML BOTTLE OS ONE (08:53)
[2020-04-01] MEDS ORDERED: LIDOCAINE HCL 1% PRESERVATIVE FREE - 30ML VIAL IO ONE (08:53)
[2020-04-01] MEDS ORDERED: CHONDROITIN SU A/HYALUR SOD 1 KIT IO ONE (08:53)
[2020-04-01] MEDS ORDERED: EPINEPHrine/PF 1 MG/1 ML (1:1,000) AMPULE SQ ONE (09:06)
--- NOTE | 2020-04-01 09:26 | HP ---
- Patient Scheduled date of Surgery: 04/01/20 Scheduled Surgical Procedure: Phacoemulsification and cataract extraction with PCIOL Affected Eye: Left Chief Complaint (Indication for surgery): Decreased vision affecting ADLs - Ocular History Other Eye History: Other (COAG) Eye Medications: besivance, timolol, alphagan , dorzolamide Previous Eye Surgery: none - Medical History Illnesses: Hypertension, Hypercholesterolemia, Other (arthritis) Current Medications: Ambulatory Orders Hydrochlorothiazide [Hctz -] 25 mg PO DAILY 11/30/18 Brimonidine Tartrate [Alphagan P 0.1% -] 1 drop OU BID 07/04/19 Acetaminophen [Tylenol .Regular Strength -] 650 mg PO Q6H PRN tablet 07/06/19 Aspirin Coated [Ecotrin -] 81 mg PO DAILY tablet.ec 07/06/19 Latanoprost 0.005% Eye Drops [Xalatan 0.005% Eye Drops -] 1 drop OU HS drops 07/06/19 Timolol 0.5% [Timoptic 0.5%] 1 drop OU BID drops 07/06/19 Lovastatin 80 mg PO HS 11/29/19 Besifloxacin HCl [Besivance] 5 ml OP BID 03/31/20 Dorzolamide HCl/Pf [Dorzolamide 2% Eye Drop] 10 ml OP BID 03/31/20 Multivitamin 1 each PO DAILY 03/31/20 [place]-3 Fatty Acids/Fish Oil [Fish Oil 1,000 mg Capsule] 1 each PO DAILY 03/31/20 Allergies/Adverse Reactions: Allergies Allergy/AdvReac Type Severity Reaction Status Date / Time peanut Allergy Verified 04/01/20 08:04 lactose AdvReac Verified 04/01/20 08:04 Ocular Examination - Best Corrected Visual Acuity Distance: Right eye: 20/25 Distance: Left eye: 20/40 - External/Slit Lamp Examination Abnormalities: pi patent , decreased tbut - Intraocular Pressure Intraocular Pressure - Right eye: 17 Intraocular Pressure-Left eye: 18 - Lens Lens: 2+ NS vacuoles 1+ cortical - Vitreous/Retina Vitreous/Retina: C:D 0.8 m/v/p wnl - Special Examination M - Right eye: +2.25 M - Left eye: +2.00 K - Right eye: 44.06/44.82 x075 K - Left eye: 44.53/45.67 x015 AL - Right eye: 22.10 AL - Left eye: 21.94 IOL ba.0 AUOOTO IOL sulcus: +24.0 MN60AC IOL AC: +22.0 MTA 4uo - Impression Impression: Cataract Left Eye - Plan Plan: Phacoemulsification and cataract extraction - IOL Left eye Post-hospital care will be provided in office on: 04/02/20
--- NOTE | 2020-04-01 09:27 | HP ---
History & Physical Update - History History: No Change - Physical Physical: No Change - Assessment Assessment: No Change - Plan Plan: No Change (H and P reviewed from Dr. ASENCIO, 03/29/20 no changes)
--- NOTE | 2020-04-01 09:28 | OP ---
Ophthalmology Operative Note Pre-Operative Diagnosis: Cataract Affected Eye: Left Operation: Phacoemulsification and cataract extraction with PCIOL Findings: NS cataract left eye Post-Operative Diagnosis: Same as Pre-op Certified Pest Control Technician: None Anesthesiologist: Eugene Carey Anesthesia: Topical Specimens Removed: none Estimated blood loss: < 1cc Drains & Tubes with Location: none Operative Report Dictated: Yes
[2020-04-01] MEDS ORDERED: ONDANSETRON 4 MG/2 ML VIAL IVPUSH PRN (09:48)
[2020-04-01 09:59] VITALS: BP 138/66; PULSE 52; TEMP 97.3
[2020-04-01] MEDS ORDERED: LACTATED RINGERS SOLUTION 1,000 ML IV SCH (10:00)
--- NOTE | 2020-04-02 15:53 | OP ---
DATE OF OPERATION: 04/01/2020 PREOPERATIVE DIAGNOSIS: Nuclear sclerotic cataract, left eye. POSTOPERATIVE DIAGNOSIS: Nuclear sclerotic cataract, left eye. PROCEDURE: Phacoemulsification and cataract extraction with insertion of posterior chamber intraocular lens, left eye. SURGEON: Sharron Huff MD SPIRAL TUBE WINDER: None. ANESTHESIA: Topical. ANESTHESIOLOGIST: Eugene Carey MD OPERATIVE PROCEDURE: The patient received Tetracaine eye drops and was gently sedated and prepped and draped in the usual sterile fashion so as to expose only the left eye. Ophthalmic Betadine was instilled into the inferior fornix and lashes were taped out of the surgical field. An eyelid speculum was placed into the left eye. Paracentesis was made in inferior temporal clear cornea at the limbus. Then 0.5 mL of nonpreserved lidocaine 1% was injected into the anterior chamber and then 1 mL of dilute epinephrine 1:10,000 was injected into the anterior chamber to improve pupillary dilation. Viscoelastic material was instilled into the anterior chamber via the paracentesis. A 2.4-mm keratome blade was then used to create the main incision in temporal clear cornea at the limbus. A continuous curvilinear capsulorhexis was performed using a cystotome and Utrata forceps. Hydrodissection of the lens cortex was performed using BSS on a cannula until the nucleus was noted to be freely rotating. The phacoemulsification tip was then inserted via the main wound and used to scope 2 perpendicular grooves into the lens nucleus. The nucleus was cracked into 4 quadrants. Each quadrant was lifted out of the capsule into the iris plane and individually phacoemulsified. The remaining cortical material was then aspirated using the irrigation/aspiration port. The capsular bag was inflated using ProVisc and a preloaded AcrySof lens model AU00T0 power 25.0 diopters was injected into the capsular bag. It was centered using a Sinskey hook. The residual viscoelastic material was removed from the anterior chamber using irrigation and aspiration. The wound edges were hydrated using BSS. The wound was tested for leakage and was found to be watertight. Tobradex ointment was placed in the eye, and the speculum was removed from the eye, and the eyelid was closed. A sterile dressing and shield were placed over the eye. The patient was transferred to the recovery room in stable condition, told to follow up in 1 day. SHARRON HUFF M.D. [id number]
== END 2020-04-01 10:24 | disposition home or self-care (01) ==
LOC: JASU-SURG 04:40
PROVIDERS: ATTEND Ophthalmology
PROC: 08RK3JZ Replacement of Left Lens with Synthetic Substitute, Percutaneous Approach (ICD-10-PCS; principal; 2020-04-01 08:30)
DX: H25.12 Age-related nuclear cataract, left eye (principal)

== ENCOUNTER 2020-06-19 23:23 | Emergency (ER) | payer OTHER ==
[2020-06-19 23:43] VITALS: TEMP 98.4; BMI 34.3
[2020-06-20] MEDS ORDERED: METHOCARBAMOL 500 MG TABLET ONE (00:04)
[2020-06-20] MEDS ORDERED: METHOCARBAMOL 500 MG TABLET PO ONE (00:04)
[2020-06-20] MEDS ORDERED: LIDOCAINE 5% TOPICAL PATCH TP ONE (00:05)
[2020-06-20] MEDS ORDERED: ACETAMINOPHEN 500 MG TABLET (FP) PO ONE (00:05)
[2020-06-20] MEDS ORDERED: LIDOCAINE 5% TOPICAL PATCH ONE (00:05)
[2020-06-20] MEDS ORDERED: ACETAMINOPHEN 325 MG TABLET (FP) ONE (00:05)
[2020-06-20 04:02] VITALS: BP 146/67; PULSE 65
[2020-06-20] MEDS ORDERED: LIDOCAINE PATCH REMOVAL MC SCH (22:00)
== END 2020-06-20 04:02 | disposition home or self-care (01) ==
LOC: JER 23:23
DX: R20.2 Paresthesia of skin (principal)
CPT/HCPCS: 72125-TC; 93005; 93010; 93970-TC; 99285-25

== ENCOUNTER 2020-10-07 08:14 | Emergency (ER) | payer OTHER ==
[2020-10-07 08:27] VITALS: BP 131/83; PULSE 84; TEMP 98.3; BMI 34.3
[2020-10-07] MEDS ORDERED: NAPROXEN 500 MG TABLET PO ONE (08:51)
[2020-10-07] MEDS ORDERED: METHOCARBAMOL 500 MG TABLET PO ONE (09:22)
[2020-10-07] MEDS ORDERED: KETOROLAC TROMETHAMINE 30 MG/1 ML VIAL IM ONE (09:22)
[2020-10-07] MEDS ORDERED: METHOCARBAMOL 500 MG TABLET ONE (09:27)
[2020-10-07] MEDS ORDERED: KETOROLAC TROMETHAMINE 30 MG/1 ML VIAL ONE (09:27)
== END 2020-10-07 12:11 | disposition home or self-care (01) ==
LOC: JERFT 08:14
PROC: 3E0233Z Introduction of Anti-inflammatory into Muscle, Percutaneous Approach (ICD-10-PCS; principal; 2020-10-07)
DX: M62.838 Other muscle spasm (principal); M25.562 Pain in left knee
CPT/HCPCS: 73502-TC-LT-FY; 73562-TC-LT-FY; 93971-TC; 99284-25

== ENCOUNTER 2022-01-05 19:12 | Emergency (ER) | payer OTHER ==
[2022-01-05 19:47] VITALS: TEMP 97.8; BMI 38.7
[2022-01-05 20:13] VITALS: BP 128/64; PULSE 57
== END 2022-01-05 21:06 | disposition home or self-care (01) ==
LOC: FER 19:12
DX: I83.893 Varicose veins of bilateral lower extremities with other complications (principal)
CPT/HCPCS: 93971-TC; 99284-25

== ENCOUNTER 2023-02-11 10:48 | Observation (INO) | payer OTHER ==
[2023-02-11] MEDS ORDERED: ACETAMINOPHEN 1000 MG/100 ML BAG IVPB ONE (11:38)
[2023-02-11] MEDS ORDERED: ACETAMINOPHEN INJECTION 100 ML IVPB ONE (12:06)
[2023-02-11 12:11] LABS: BASO % 0.5 % (0-2.0); EOS % 1.2 % (0-4.5); HEMATOCRIT 38.9 % (32.4-45.2); HEMOGLOBIN 12.6 GM/dL (10.7-15.3); LYMPH % 32.2 % (8-40); MCH 27.6 pg (25.7-33.7); MCHC 32.3 g/dl (32.0-36.0); MEAN CELL VOLUME 85.5 fl (80-96); MEAN PLT VOLUME 8.3 fl (7.5-11.1); MONO % 12.7 % (3.8-10.2); NEUT % 53.4 % (42.8-82.8); PLATELET COUNT 191 10^3/uL (134-434); RBC 4.56 M/mm3 (3.60-5.2); RDW 15.9 % (11.6-15.6); WHITE BLOOD COUNT 5.8 K/mm3 (4.0-10.0)
[2023-02-11 12:16] LABS: INR 1.11 (0.83-1.09); PROTHROMBIN TIME (PATIENT) 12.9 SEC (9.7-13.0)
[2023-02-11 12:19] LABS: ACTIVATED PTT 31.1 SECONDS (25.2-36.5)
[2023-02-11 12:28] LABS: POTASSIUM 4.4 mmol/L (3.5-5.1)
[2023-02-11 12:31] LABS: ALBUMIN 3.7 g/dl (3.4-5.0); BLOOD UREA NITROGEN 13.4 mg/dL (7-18); CALCIUM 9.4 mg/dL (8.5-10.1)
[2023-02-11 12:34] LABS: CREATININE 0.8 mg/dL (0.55-1.3)
[2023-02-11 12:36] LABS: BILIRUBIN,TOTAL 0.2 mg/dL (0.2-1); TOT PROT 6.8 g/dl (6.4-8.2)
[2023-02-12] MEDS ORDERED: ACETAMINOPHEN 325 MG TABLET (FP) ONE (01:03)
[2023-02-12] MEDS ORDERED: HEPARIN NA (PORCINE) 5,000 UNITS/ML 1ML VIAL ONE ×2 (01:03→09:09)
[2023-02-12] MEDS: HEPARIN NA (PORCINE) 5,000 UNITS/ML 1ML VIAL SQ SCH ×3 (01:24→21:29)
[2023-02-12] MEDS: ACETAMINOPHEN 325 MG TABLET (FP) PO PRN (01:24)
[2023-02-12] MEDS: ATORVASTATIN CA 10 MG TABLET (FP) PO SCH ×2 (01:24→21:28)
[2023-02-12] MEDS: INSULIN SLIDING SCALE (NOVOLOG) 1 VIAL SQ SCH ×3 (08:04→17:47)
[2023-02-12] MEDS ORDERED: HYDROCHLOROTHIAZIDE 25 MG TABLET (FP) ONE (09:08)
[2023-02-12] MEDS ORDERED: ASPIRIN COATED 81 MG TABLET.EC ONE (09:08)
[2023-02-12] MEDS ORDERED: MULTIVITAMINS (DAILY MVI) TABLET (FP) ONE (09:09)
[2023-02-12] MEDS: ASPIRIN COATED 81 MG TABLET.EC PO SCH (09:15)
[2023-02-12] MEDS: HYDROCHLOROTHIAZIDE 25 MG TABLET (FP) PO SCH (09:16)
[2023-02-12] MEDS: MULTIVITAMINS (DAILY MVI) TABLET (FP) PO SCH (09:19)
[2023-02-12 19:47] VITALS: RESP 18
[2023-02-12 23:17] VITALS: BMI 36.5
[2023-02-13] MEDS: INSULIN SLIDING SCALE (NOVOLOG) 1 VIAL SQ SCH ×2 (06:00→12:08)
[2023-02-13] MEDS: ACETAMINOPHEN 325 MG TABLET (FP) PO PRN (09:10)
[2023-02-13] MEDS: HEPARIN NA (PORCINE) 5,000 UNITS/ML 1ML VIAL SQ SCH (09:10)
[2023-02-13] MEDS: HYDROCHLOROTHIAZIDE 25 MG TABLET (FP) PO SCH (09:11)
[2023-02-13] MEDS: ASPIRIN COATED 81 MG TABLET.EC PO SCH (09:11)
[2023-02-13] MEDS: MULTIVITAMINS (DAILY MVI) TABLET (FP) PO SCH (09:11)
[2023-02-13 09:18] VITALS: BP 120/68; PULSE 69; TEMP 99
== END 2023-02-13 14:59 | disposition home or self-care (01) ==
LOC: JER 10:48 → JERBED 15:39 → J4W 02-12 20:33
PROVIDERS: ADMIT Internal Medicine; ATTEND Family Medicine
PROC: 3E033NZ Introduction of Analgesics, Hypnotics, Sedatives into Peripheral Vein, Percutaneous Approach (ICD-10-PCS; principal; 2023-02-11)
PROC: 3E023GC Introduction of Other Therapeutic Substance into Muscle, Percutaneous Approach (ICD-10-PCS; 2023-02-11)
DX: M75.51 Bursitis of right shoulder (principal); M54.12 Radiculopathy, cervical region; E11.9 Type 2 diabetes mellitus without complications; I10 Essential (primary) hypertension; E78.5 Hyperlipidemia, unspecified; K92.9 Disease of digestive system, unspecified; R00.1 Bradycardia, unspecified; R42 Dizziness and giddiness; Z91.010 Allergy to peanuts; Z88.5 Allergy status to narcotic agent; Z91.011 Allergy to milk products; R07.9 Chest pain, unspecified; M25.511 Pain in right shoulder; Z79.4 Long term (current) use of insulin; K21.9 Gastro-esophageal reflux disease without esophagitis
CPT/HCPCS: 36415; 70450-TC; 71046-TC-FY; 73030-TC-RT-FY; 73060-TC-RT-FY; 80053; 80061; 82962; 83036; 84484; 85025; 85610; 85730; 93005; 93010; 93306-TC; 93971; 96372; 96374; 99285-25; G0378; J1644

== ENCOUNTER 2023-06-08 09:55 | Emergency (ER) | payer OTHER ==
[2023-06-08 10:03] VITALS: BP 143/51; PULSE 73; RESP 18; TEMP 97.6; BMI 33.5
[2023-06-08] MEDS ORDERED: predniSONE 20 MG TABLET (UD) PO ONE (13:14)
[2023-06-08] MEDS ORDERED: ACETAMINOPHEN 325 MG TABLET (FP) PO ONE (13:14)
[2023-06-08] MEDS ORDERED: predniSONE 20 MG TABLET (UD) ONE (13:21)
[2023-06-08] MEDS ORDERED: ACETAMINOPHEN 325 MG TABLET (FP) ONE (13:21)
== END 2023-06-08 15:13 | disposition home or self-care (01) ==
LOC: JER 09:55
DX: M79.605 Pain in left leg (principal); M47.819 Spondylosis without myelopathy or radiculopathy, site unspecified; M54.9 Dorsalgia, unspecified; R22.42 Localized swelling, mass and lump, left lower limb; M25.512 Pain in left shoulder
CPT/HCPCS: 72100-TC-FY; 93971-TC; 99284-25

== ENCOUNTER 2023-08-27 10:28 | Emergency (ER) | payer OTHER ==
[2023-08-27 10:34] VITALS: TEMP 98.7; BMI 32.5
[2023-08-27 12:07] LABS: INR 1.13 (0.83-1.09); PROTHROMBIN TIME (PATIENT) 13.1 SEC (9.7-13.0)
[2023-08-27 12:09] LABS: BASO % 0.5 % (0-2.0); EOS % 1.2 % (0-4.5); HEMATOCRIT 38.2 % (32.4-45.2); HEMOGLOBIN 12.9 GM/dL (10.7-15.3); LYMPH % 33.5 % (8-40); MCH 28.6 pg (25.7-33.7); MCHC 33.7 g/dl (32.0-36.0); MEAN PLT VOLUME 8.3 fl (7.5-11.1); MONO % 10.5 % (3.8-10.2); NEUT % 54.3 % (42.8-82.8); PLATELET COUNT 193 10^3/uL (134-434); RDW 15.6 % (11.6-15.6); WHITE BLOOD COUNT 5.2 K/mm3 (4.0-10.0)
[2023-08-27 12:10] LABS: ACTIVATED PTT 29.9 SECONDS (25.2-36.5)
[2023-08-27 12:23] LABS: POTASSIUM 3.6 mmol/L (3.5-5.1)
[2023-08-27 12:27] LABS: BLOOD UREA NITROGEN 12.5 mg/dL (7-18); CALCIUM 8.4 mg/dL (8.5-10.1); MAGNESIUM 1.5 mg/dL (1.8-2.4)
[2023-08-27 12:28] LABS: ALBUMIN 3.1 g/dl (3.4-5.0)
[2023-08-27 12:31] LABS: CREATININE 0.7 mg/dL (0.55-1.3)
[2023-08-27 12:32] LABS: BILIRUBIN,TOTAL 0.3 mg/dL (0.2-1)
[2023-08-27] MEDS: MAGNESIUM 1GM/D5W - 1 GM/100 ML IVPB IVPB ONE (12:46)
[2023-08-27] MEDS ORDERED: MAGNESIUM SULFATE IN WATER 2 GM/50 ML IVPB IVPB ONE (12:48)
[2023-08-27] MEDS ORDERED: POTASSIUM CHLORIDE TABS 20 MEQ TABLET.ER (FP) PO ONE (12:49)
[2023-08-27] MEDS: POTASSIUM CHLORIDE TABS 20 MEQ TABLET.ER (FP) PO ONE (12:59)
[2023-08-27] MEDS: MAGNESIUM SULFATE IN WATER 2 GM/50 ML IVPB IVPB ONE (12:59)
[2023-08-27] MEDS: MAGNESIUM SULF 50% (8.12 MEQ/2 ML-1 GM VIAL) IVPB ONE (12:59)
[2023-08-27] MEDS ORDERED: TETRACAINE 0.5% OPHTH SOLN 2 ML BOTTLE ONE (14:14)
[2023-08-27] MEDS: TETRACAINE 0.5% HCL 0.6ML DROPPER.BOTTLE OU ONE (14:39)
[2023-08-27 16:25] VITALS: BP 142/65; PULSE 53; RESP 18
== END 2023-08-27 16:43 | disposition home or self-care (01) ==
LOC: JER 10:28
PROC: 3E033GC Introduction of Other Therapeutic Substance into Peripheral Vein, Percutaneous Approach (ICD-10-PCS; principal; 2023-08-27)
DX: R20.0 Anesthesia of skin (principal); R20.2 Paresthesia of skin; E83.42 Hypomagnesemia; M25.511 Pain in right shoulder; H53.10 Unspecified subjective visual disturbances
CPT/HCPCS: 36415; 70450-TC; 70551-TC; 73030-TC-RT-FY; 80053; 82962; 83735; 85025; 85610; 85730; 93005; 93010; 96365; 99285-25

== ENCOUNTER 2023-12-05 20:35 | Emergency (ER) | payer OTHER ==
[2023-12-05 20:40] VITALS: BP 133/81; PULSE 71; RESP 20; TEMP 98.2; BMI 30.9
[2023-12-05] MEDS: IBUPROFEN 400 MG TABLET (FP) PO ONE (21:54)
[2023-12-05] MEDS ORDERED: ACETAMINOPHEN 325 MG TABLET (FP) ONE (21:56)
[2023-12-05] MEDS: ACETAMINOPHEN 500 MG TABLET (FP) PO ONE (21:59)
== END 2023-12-05 22:07 | disposition home or self-care (01) ==
LOC: JER 20:35
DX: M79.642 Pain in left hand (principal); M79.662 Pain in left lower leg
CPT/HCPCS: 99283-25

== ENCOUNTER 2024-04-19 14:38 | Emergency (ER) | payer OTHER ==
[2024-04-19 14:49] VITALS: BP 127/71; PULSE 68; RESP 16; TEMP 98.1; BMI 30.8
[2024-04-19 16:54] LABS: BASO % 0.5 % (0-2.0); EOS % 0.5 % (0-4.5); HEMATOCRIT 39.1 % (32.4-45.2); HEMOGLOBIN 12.8 GM/dL (10.7-15.3); LYMPH % 31.7 % (8-40); MCH 27.9 pg (25.7-33.7); MCHC 32.8 g/dl (32.0-36.0); MEAN CELL VOLUME 85.1 fl (80-96); MEAN PLT VOLUME 7.6 fl (7.5-11.1); MONO % 10.5 % (3.8-10.2); NEUT % 56.8 % (42.8-82.8); PLATELET COUNT 229 10^3/uL (134-434); RDW 16.4 % (11.6-15.6); WHITE BLOOD COUNT 6.5 K/mm3 (4.0-10.0)
[2024-04-19 16:57] LABS: EPI CELLS >36 /uL (0-25.1); HYALINE CASTS 0 /uL (0-3.1); PH,URINE 6.5 (5.0-8.0); URINE APPEARANCE CLEAR; URINE BACTERIA 699 /uL (0-1359); URINE BILIRUBIN NEGATIVE (NEGATIVE); URINE COLOR YELLOW; URINE GLUCOSE (UA) NEGATIVE (NEGATIVE); URINE KETONE NEGATIVE (NEGATIVE); URINE LEUK ESTERASE 1+ (NEGATIVE); URINE NITRITE NEGATIVE (NEGATIVE); URINE PROTEIN NEGATIVE (NEGATIVE); URINE RBC 13 /uL (0-23.9); URINE WBC 44 /uL (0-25.8)
[2024-04-19 17:17] LABS: POTASSIUM 3.9 mmol/L (3.5-5.1)
[2024-04-19 17:20] LABS: ALBUMIN 3.9 g/dl (3.4-5.0); BLOOD UREA NITROGEN 17.6 mg/dL (7-18); CALCIUM 9.8 mg/dL (8.5-10.1)
[2024-04-19 17:23] LABS: CREATININE 0.8 mg/dL (0.55-1.3)
[2024-04-19] MEDS ORDERED: ACETAMINOPHEN INJECTION 100 ML ONE (17:24)
[2024-04-19 17:25] LABS: BILIRUBIN,TOTAL 0.5 mg/dL (0.2-1); TOT PROT 7.2 g/dl (6.4-8.2)
[2024-04-19] MEDS: ACETAMINOPHEN 1000 MG/100 ML BAG IVPB ONE (17:27)
[2024-04-19 18:12] LABS: HIV INTERPRETATION NEGATIVE (NEGATIVE)
[2024-04-19 18:55] LABS: ACTIVATED PTT 31.9 SECONDS (25.2-36.5); INR 1.09 (0.83-1.09); PROTHROMBIN TIME (PATIENT) 12.5 SEC (9.7-13.0)
[2024-04-19] MEDS ORDERED: KETOROLAC TROMETHAMINE 15 MG/ML VIAL ONE (19:20)
[2024-04-19] MEDS: KETOROLAC TROMETHAMINE 15 MG/ML VIAL IVPUSH ONE (19:29)
== END 2024-04-19 19:39 | disposition home or self-care (01) ==
LOC: JER 14:38
PROC: 3E033NZ Introduction of Analgesics, Hypnotics, Sedatives into Peripheral Vein, Percutaneous Approach (ICD-10-PCS; principal; 2024-04-19)
PROC: 3E0333Z Introduction of Anti-inflammatory into Peripheral Vein, Percutaneous Approach (ICD-10-PCS; 2024-04-19)
DX: U07.1 COVID-19 (principal); R07.89 Other chest pain; R10.11 Right upper quadrant pain; R63.0 Anorexia
CPT/HCPCS: 0241U-QW; 36415; 71046-TC-FY; 76705-TC; 80053; 81003; 83690; 84484; 85025; 85610; 85730; 86803; 86850; 86900; 86901; 87086; 87389; 93005; 93010; 99285-25; J0131

== ENCOUNTER 2024-12-05 17:09 | Emergency (ER) | payer OTHER ==
[2024-12-05 17:18] VITALS: TEMP 98.8; BMI 32.5
[2024-12-05 18:14] LABS: ABSOLUTE IMMATURE GRANULOCYTES 0.02 x10^3/uL (0.0-0.031); BASOPHILS # 0.02 x10^3/uL (0.01-0.08); EOSINOPHIL % 0.8 % (0.7-5.8); EOSINOPHILS # 0.06 x10^3/uL (0.04-0.36); HEMATOCRIT 39.2 % (34.1-44.9); HEMOGLOBIN 12.5 g/dL (11.2-15.7); MCHC 31.9 g/dl (32.2-35.5); MEAN CELL VOLUME 87.1 fl (79.4-94.8); MONOCYTE # 0.88 x10^3/uL (0.24-0.86); MONOCYTE % 12.2 % (4.7-12.5); PLATELET COUNT 242 x10^3/uL (182-369); RDW 15.9 % (12.4-16.6)
[2024-12-05 18:22] LABS: INR 1.1 (0.83-1.09); PROTHROMBIN TIME (PATIENT) 12.1 SEC (9.7-13.0)
[2024-12-05 18:25] LABS: ACTIVATED PTT 28.7 SECONDS (25.2-36.5)
[2024-12-05 18:41] LABS: POTASSIUM 4.5 mmol/L (3.5-5.1)
[2024-12-05 18:47] LABS: CALCIUM 9.9 mg/dL (8.5-10.1)
[2024-12-05 18:48] LABS: ALBUMIN 3.6 g/dl (3.4-5.0); BLOOD UREA NITROGEN 21.8 mg/dL (7-18); MAGNESIUM 2.1 mg/dL (1.8-2.4)
[2024-12-05 18:51] LABS: CREATININE 0.8 mg/dL (0.55-1.3)
[2024-12-05 18:53] LABS: BILIRUBIN,TOTAL 0.3 mg/dL (0.2-1); TOT PROT 6.9 g/dl (6.4-8.2)
[2024-12-05] MEDS ORDERED: KETOROLAC TROMETHAMINE 15 MG/ML VIAL ONE (19:45)
[2024-12-05] MEDS: KETOROLAC TROMETHAMINE 15 MG/ML VIAL IVPUSH ONE (19:49)
[2024-12-05] MEDS ORDERED: FOLIC ACID INJECTION - 1 MG, THIAMINE HCL 100 MG, MULTIVIT INJECTION ADULT 10 ML in SOD... IVPB ONE (20:59)
[2024-12-05] MEDS: FOLIC ACID INJECTION - 1 MG, THIAMINE HCL 100 MG, MULTIVIT INJECTION ADULT 10 ML in SOD... IVPB ONE (21:42)
[2024-12-05 23:30] VITALS: BP 121/76; PULSE 60; RESP 18
== END 2024-12-05 23:30 | disposition home or self-care (01) ==
LOC: JER 17:09
PROC: 3E033GC Introduction of Other Therapeutic Substance into Peripheral Vein, Percutaneous Approach (ICD-10-PCS; principal; 2024-12-05)
PROC: 3E0333Z Introduction of Anti-inflammatory into Peripheral Vein, Percutaneous Approach (ICD-10-PCS; 2024-12-05)
DX: R42 Dizziness and giddiness (principal); R55 Syncope and collapse; Z63.4 Disappearance and death of family member
CPT/HCPCS: 36415; 71045-TC-FY; 80053; 83735; 84484; 85025; 85610; 85730; 86850; 86900; 86901; 93005; 93010; 99285-25